=== PATIENT | female | born 1970 | race Caucasian/White ===

== ENCOUNTER → 2018-01-13 12:50 | Outpatient (CLI) | payer BC, SELFPAY ==
--- NOTE | 2018-01-13 12:58 | US_ITS ---
MM Dig mamm BI DX w/CAD, US breast LT complete COMPARISON: 11/21/2014, 12/17/2013 INDICATION: Palpable lump in the upper aspect of the left breast ORDERING PHYSICIAN: Gianluca Hdez MD PATIENT AGE: 47 years TECHNIQUE: Standard images performed along with left breast ultrasound FINDINGS: There is average to dense fibroglandular tissue. A 2.8 x 2.2 cm fairly well-circumscribed nodule is present in the upper aspect of the left breast at the 12:00 region. The margins are well-circumscribed. Surgical clips are present in the right breast no malignant appearing mass or malignant appearing microcalcifications evident. There is a 1 cm nodule in the upper outer aspect of the right breast not readily apparent on the previous exam. Ultrasound is recommended of this region. LEFT BREAST ULTRASOUND: There is a new 2.8 x 1.6 cm well-circumscribed slightly hypoechoic nodule with macrolobulation in the left o'clock region of the left breast corresponding to the palpable abnormality. This does show some through transmission of sound. A 5 mm hypoechoic nodules present at 8:00 nipple probably related to complex cyst. There are small nodes in the axilla. IMPRESSION: There is a new 2.8 cm nodule in the left the 12:00 region of the left breast which is solid by ultrasound. This likely represents a fibroadenoma however, since the nodule is new and solid, ultrasound-guided biopsy is recommended 1 cm indeterminate nodular opacity in the upper outer right breast. Ultrasound is suggested. If this is solid in biopsy may be performed on the same day as the left breast. BI-RADS Category: 4 Suspicious Abnormality-Biopsy Considered left breast RECOMMENDED FOLLOW-UP: BIO - BIOPSY RECOMMENDED Also recommend ultrasound of the right breast to be performed before the left breast biopsy. If this nodule is solid band biopsy should be considered as well (A letter has been sent to the patient regarding results of the study.)
== END ==
PROVIDERS: Family Provider Family Medicine; PCP Family Medicine; Visit Provider Family Medicine
DX: N63.20 Unspecified lump in the left breast, unspecified quadrant (principal)
CPT/HCPCS: 76641; 77066

== ENCOUNTER 2018-01-17 21:53 | Day surgery (SDC) | payer BC, SELFPAY ==
[2018-01-17 21:57] VITALS: BP 155/100; PULSE 105; RESP 16; TEMP 36.7; O2SAT 95; BMI 36.0
[2018-01-17 22:28] LABS: Basophils # 0.1 K/mm3 (0-0.2); Basophils % 0.7 % (0.1-2.0); Eosinophils # 0.7 K/mm3 (0.0-0.4); Eosinophils % 4.4 % (0.1-12.0); Hemoglobin 12.5 g/dL (12.2-16.2); Lymphocytes # 4.6 K/mm3 (0.7-4.5); Lymphocytes % 30.1 K/mm3 (10-50); Mean Corpuscular HGB Conc 32.1 g/dL (31.8-35.4); Mean Corpuscular Hemoglobin 26.2 pg (27.0-31.2); Mean Corpuscular Volume 81.6 fl (81-99); Mean Platelet Volume 7.1 fl (7.4-10.4); Monocytes # 1.1 K/mm3 (0.1-1.0); Monocytes % 7.4 % (1.7-9.3); Neutrophils # 8.8 K/mm3 (1.8-7.8); Neutrophils % 57.5 % (37.0-80.0); Platelet Count 533 K/mm3 (142-424); Red Blood Count 4.79 M/mm3 (4.20-5.40); Red Cell Distribution Width 15.1 % (11.5-17.5); White Blood Count 15.4 K/mm3 (4.8-10.8)
--- NOTE | 2018-01-17 22:28 | HMH.EDNVD ---
ED Disposition Clinical Impression: Impacted esophageal foreign body Qualifiers: Encounter type: initial encounter Qualified Code(s): T18.108A - Unspecified foreign body in esophagus causing other injury, initial encounter Disposition: Home, Self-Care Condition on Discharge: Good Additional Instructions: see pcp and dr alexis for follow up Referrals: Gianluca Hdez MD [Primary Care Provider] - - Critical Care Critical Care Time: No Attestation: On 01/17/18, the high probability of a clinically significant, sudden or life threatening deterioration of the following system(s) required my full and direct attention, intervention and personal management. The time I documented below is in addition to time spent performing reported procedures but includes the following listed in this critical care notation. Medical Decision Making Vital Signs: 01/17/18 21:57 01/17/18 23:23 Temperature 98.1 F 98.1 F Temperature Source Oral Oral Pulse Rate [Right Brachial] 105 H 86 Respiratory Rate 16 16 Blood Pressure [Right Arm] 155/100 141/95 Blood Pressure Mean [Right Arm] 118 110 Blood Pressure Source [Right Arm] Automatic Cuff Blood Pressure Position [Right Arm] Sitting 02 Sat by Pulse Oximetry 95 99 Oxygen Delivery Method Room Air - Lab Data Lab Results 01/17/18 20:20: WBC 15.4 H, RBC 4.79, Hgb 12.5, Hct 39.0, MCV 81.6, MCH 26.2 L, MCHC 32.1, RDW 15.1, Plt Count 533 H, MPV 7.1 L, Neut % (Auto) 57.5, Lymph % (Auto) 30.1, [place] % (Auto) 7.4, Eos % (Auto) 4.4, Baso % (Auto) 0.7, Neut # (Auto) 8.8 H, Lymph # (Auto) 4.6 H, [place] # (Auto) 1.1 H, Eos # (Auto) 0.7 H, Baso # (Auto) 0.1, Total Counted 100, Neutrophils % (Manual) 73, Lymphocytes % (Manual) 23, Monocytes % (Manual) 3, Eosinophils % (Manual) 1, Platelet Estimate Slight increase, Polychromasia 1+, Hypochromasia 2+, Poikilocytosis 1+, Microcytosis 1+ 01/17/18 20:20: Sodium 135 L, Potassium 3.7, Chloride 104, Carbon Dioxide 25, Anion Gap 9.7, BUN 10, Creatinine 0.85, Estimated Creat Clear 123, Estimated GFR 72, Est GFR ( Amer) 87, Glucose 122 H, Calcium 8.4 L, Total Bilirubin 0.2, AST 15, ALT 25, Alkaline Phosphatase 70, Troponin I < 0.02, Total Protein 7.9, Albumin 3.2 L, Globulin 4.7 H, Albumin/Globulin Ratio 0.7 L Result diagrams: 01/17/18 20:20 01/17/18 20:20 Orders (Tests/Meds): ED MEDICATIONS Discontinued Medications Generic Name Dose Route Start Last Admin Trade Name Freq PRN Reason Stop Dose Admin Famotidine 20 mg 01/17/18 22:07 01/17/18 22:27 Pepcid 20mg/2ml Vial IV 01/17/18 22:08 20 mg ONCE ONE Administration Glucagon 1 mg 01/17/18 22:58 01/17/18 23:00 Glucagen 1mg/Ml Vial IV 01/17/18 22:59 1 mg ONCE ONE Administration Metoclopramide HCl 10 mg 01/17/18 22:07 01/17/18 22:27 Reglan 10mg/2ml Vial IVP 01/17/18 22:08 10 mg ONCE ONE Administration - Physician Consults Physician Consulted: vanesa Reason -: Surgical Eval/Care - Russell Inquiry Pt receiving controlled substance: No Nausea/Vomiting/Diarrhea HPI - General Chief complaint: Dental/Oral Stated complaint: unable to swallow Time Seen by Provider: 01/17/18 22:28 Mode of Arrival: Ambulatory Source of Information: Patient, Relative, Medical Record Limitations: No Limitations Description of Symptoms (Recalled from ER Triage Doc. by RN): UNABLE TO SWALLOW - History of Present Illness HPI Narrative: pt with fb sensation esophageal as she was eating steak- has hx of gerd MD complaint: nausea Onset (ago): hour(s) Associated Abdominal Pain: No - Related Data Allergies Allergy/AdvReac Type Severity Reaction Status Date / Time codeine [CODEINE] Allergy Mild Verified 01/17/18 22:02 peanut [PEANUT] Allergy Mild Verified 01/17/18 22:02 [facility] History I have reviewed the patient's past medical history: Yes - Social History Alcohol Intake: never - Psychiatric History Expresses thoughts of harming self/others: None Suicide Anh
[2018-01-17 22:40] LABS: Alanine Aminotransferase 25 U/L (12-78); Albumin Level 3.2 gm/dL (3.4-5.0); Albumin/Globulin Ratio 0.7 (1.1-1.8); Alkaline Phosphatase 70 U/L (46-116); Anion Gap 9.7 mEq/L (5-15); Aspartate Amino Transferase 15 U/L (15-37); Bilirubin,Total 0.2 mg/dL (0.2-1.0); Blood Urea Nitrogen 10 mg/dL (7-18); Calcium 8.4 mg/dL (8.5-10.1); Carbon Dioxide 25 mmol/L (21.0-32.0); Chloride 104 mmol/L (98-107); Creatinine Clearance Estimated 123 mL/min (0-300); Creatinine,Serum 0.85 mg/dL (0.55-1.02); Estimated Glomerular Filt Rate 72 ml/min (>60); GFR (African American) 87 ML/MIN (>60); Globulin 4.7 gm/dl (1.3-3.2); Glucose 122 mg/dL (74-106); Potassium 3.7 mmoL/L (3.5-5.1); Sodium 135 mmol/L (136-145); Total Protein,Serum 7.9 gm/dL (6.4-8.2); Troponin I < 0.02 ng/ml (0.00-0.06)
[2018-01-17 22:42] LABS: MANUAL DIFFERENTIAL MANUAL DIFFERENTIAL (MANUAL DIFF)
[2018-01-17 22:46] LABS: Eosinophils % 1 % (0-3); Lymphocytes % 23 % (10-50); Monocytes % 3 % (2-9); Neutrophils % 73 % (42-76); Total Cells Counted 100
[2018-01-17 22:47] LABS: Hypochromasia 2+; Microcytosis 1+; Platelet Estimate Slight Increase; Poikilocytosis 1+; Polychromasia 1+
--- NOTE | 2018-01-17 23:00 | PC.NURSE ---
DR VEGA SPOKE WITH DR BROWN, TO GIVE GLUCAGON AT THIS TIME.
--- NOTE | 2018-01-17 23:17 | PC.NURSE ---
DR BROWN CALLED BACK FOR US TO CALL IN OR TEAM FOR EGD.
--- NOTE | 2018-01-17 23:20 | PC.NURSE ---
OR team was paged
[2018-01-17 23:23] VITALS: BP 141/95; PULSE 86; RESP 16; TEMP 36.7; O2SAT 99
--- NOTE | 2018-01-17 23:45 | HMH.GSHP ---
HPI HPI: Patient is a pleasant 47-year-old white female. She has a prior history 2 years ago of symptoms consistent with esophageal obstruction secondary to food impaction. However her symptoms resolved with administration of medication after running to the emergency department. This evening approximately 8 PM she was in her usual state of health. She had eaten at a steak house in [place] and after leaving she has been unable to swallow her own secretions. She has had nearly continuous spitting up of saliva. She denies any significant chest pain. She presented to the [facility] department and medication was administered including antacid and glucagon and Reglan. She had no resolution of symptoms and surgery was contacted for upper endoscopy. [facility] History - *Social History Alcohol Intake: never - Psychiatric History Expresses thoughts of harming self/others: None Suicide Plan Description: No Plan Review of Systems - Review of Systems Review of systems:: pertinent systems reviewed and negative unless documented below - *Neurologic Denies seizure-like activity Meds Allergies Allergy/AdvReac Type Severity Reaction Status Date / Time codeine [CODEINE] Allergy Mild Verified 01/17/18 22:02 peanut [PEANUT] Allergy Mild Verified 01/17/18 22:02 Exam Vital signs and Labs for Last 24 Hours: Temp Pulse Resp BP Pulse Ox 98.1 F 86 16 141/95 99 01/17/18 23:23 01/17/18 23:23 01/17/18 23:23 01/17/18 23:23 01/17/18 23:23 Laboratory Results - last 24 hr 01/17/18 20:20: WBC 15.4 H, RBC 4.79, Hgb 12.5, Hct 39.0, MCV 81.6, MCH 26.2 L, MCHC 32.1, RDW 15.1, Plt Count 533 H, MPV 7.1 L, Neut % (Auto) 57.5, Lymph % (Auto) 30.1, [place] % (Auto) 7.4, Eos % (Auto) 4.4, Baso % (Auto) 0.7, Neut # (Auto) 8.8 H, Lymph # (Auto) 4.6 H, [place] # (Auto) 1.1 H, Eos # (Auto) 0.7 H, Baso # (Auto) 0.1, Total Counted 100, Neutrophils % (Manual) 73, Lymphocytes % (Manual) 23, Monocytes % (Manual) 3, Eosinophils % (Manual) 1, Platelet Estimate Slight increase, Polychromasia 1+, Hypochromasia 2+, Poikilocytosis 1+, Microcytosis 1+ 01/17/18 20:20: Sodium 135 L, Potassium 3.7, Chloride 104, Carbon Dioxide 25, Anion Gap 9.7, BUN 10, Creatinine 0.85, Estimated Creat Clear 123, Estimated GFR 72, Est GFR ( Amer) 87, Glucose 122 H, Calcium 8.4 L, Total Bilirubin 0.2, AST 15, ALT 25, Alkaline Phosphatase 70, Troponin I < 0.02, Total Protein 7.9, Albumin 3.2 L, Globulin 4.7 H, Albumin/Globulin Ratio 0.7 L I & O for Last 24 hours: Intake & Output 01/15/18 01/16/18 01/17/18 01/18/18 11:59 11:59 11:59 11:59 Weight 210 lb - Constitutional mild distress Comments: Sitting upright spitting up secretions. Good airway movement - *Routine Respiratory Exam Present: CTA bilaterally - *Routine Cardiovascular Exam Present: RRR Results - Results Lab Results Last 24 Hours:: Laboratory Results - last 24 hr 01/17/18 20:20: WBC 15.4 H, RBC 4.79, Hgb 12.5, Hct 39.0, MCV 81.6, MCH 26.2 L, MCHC 32.1, RDW 15.1, Plt Count 533 H, MPV 7.1 L, Neut % (Auto) 57.5, Lymph % (Auto) 30.1, [place] % (Auto) 7.4, Eos % (Auto) 4.4, Baso % (Auto) 0.7, Neut # (Auto) 8.8 H, Lymph # (Auto) 4.6 H, [place] # (Auto) 1.1 H, Eos # (Auto) 0.7 H, Baso # (Auto) 0.1, Total Counted 100, Neutrophils % (Manual) 73, Lymphocytes % (Manual) 23, Monocytes % (Manual) 3, Eosinophils % (Manual) 1, Platelet Estimate Slight increase, Polychromasia 1+, Hypochromasia 2+, Poikilocytosis 1+, Microcytosis 1+ 01/17/18 20:20: Sodium 135 L, Potassium 3.7, Chloride 104, Carbon Dioxide 25, Anion Gap 9.7, BUN 10, Creatinine 0.85, Estimated Creat Clear 123, Estimated GFR 72, Est GFR ( Amer) 87, Glucose 122 H, Calcium 8.4 L, Total Bilirubin 0.2, AST 15, ALT 25, Alkaline Phosphatase 70, Troponin I < 0.02, Total Protein 7.9, Albumin 3.2 L, Globulin 4.7 H, Albumin/Globulin Ratio 0.7 L Assessment and Plan - Assessment and plan all Dx Assessment and Plan for all problems:: Plan for e
--- NOTE | 2018-01-17 23:48 | P.HP_ITS ---
HPI HPI: Patient is a pleasant 47-year-old white female. She has a prior history 2 years ago of symptoms consistent with esophageal obstruction secondary to food impaction. However her symptoms resolved with administration of medication after running to the emergency department. This evening approximately 8 PM she was in her usual state of health. She had eaten at a steak house in [place] and after leaving she has been unable to swallow her own secretions. She has had nearly continuous spitting up of saliva. She denies any significant chest pain. She presented to the [facility] department and medication was administered including antacid and glucagon and Reglan. She had no resolution of symptoms and surgery was contacted for upper endoscopy. [facility] History - *Social History Alcohol Intake: never - Psychiatric History Expresses thoughts of harming self/others: None Suicide Plan Description: No Plan Review of Systems - Review of Systems Review of systems:: pertinent systems reviewed and negative unless documented below - *Neurologic Denies seizure-like activity Meds Allergies Allergy/AdvReac Type Severity Reaction Status Date / Time codeine [CODEINE] Allergy Mild Verified 01/17/18 22:02 peanut [PEANUT] Allergy Mild Verified 01/17/18 22:02 Exam Vital signs and Labs for Last 24 Hours: Temp Pulse Resp BP Pulse Ox 98.1 F 86 16 141/95 99 01/17/18 23:23 01/17/18 23:23 01/17/18 23:23 01/17/18 23:23 01/17/18 23:23 Laboratory Results - last 24 hr 01/17/18 20:20: WBC 15.4 H, RBC 4.79, Hgb 12.5, Hct 39.0, MCV 81.6, MCH 26.2 L, MCHC 32.1, RDW 15.1, Plt Count 533 H, MPV 7.1 L, Neut % (Auto) 57.5, Lymph % ( Auto) 30.1, [place] % (Auto) 7.4, Eos % (Auto) 4.4, Baso % (Auto) 0.7, Neut # (Auto ) 8.8 H, Lymph # (Auto) 4.6 H, [place] # (Auto) 1.1 H, Eos # (Auto) 0.7 H, Baso # ( Auto) 0.1, Total Counted 100, Neutrophils % (Manual) 73, Lymphocytes % (Manual) 23, Monocytes % (Manual) 3, Eosinophils % (Manual) 1, Platelet Estimate Slight increase, Polychromasia 1+, Hypochromasia 2+, Poikilocytosis 1+, Microcytosis 1+ 01/17/18 20:20: Sodium 135 L, Potassium 3.7, Chloride 104, Carbon Dioxide 25, Anion Gap 9.7, BUN 10, Creatinine 0.85, Estimated Creat Clear 123, Estimated GFR 72, Est GFR ( Amer) 87, Glucose 122 H, Calcium 8.4 L, Total Bilirubin 0.2, AST 15, ALT 25, Alkaline Phosphatase 70, Troponin I < 0.02, Total Protein 7.9, Albumin 3.2 L, Globulin 4.7 H, Albumin/Globulin Ratio 0.7 L I & O for Last 24 hours: Intake & Output 01/15/18 01/16/18 01/17/18 01/18/18 11:59 11:59 11:59 11:59 Weight 210 lb - Constitutional mild distress Comments: Sitting upright spitting up secretions. Good airway movement - *Routine Respiratory Exam Present: CTA bilaterally - *Routine Cardiovascular Exam Present: RRR Results - Results Lab Results Last 24 Hours:: Laboratory Results - last 24 hr 01/17/18 20:20: WBC 15.4 H, RBC 4.79, Hgb 12.5, Hct 39.0, MCV 81.6, MCH 26.2 L, MCHC 32.1, RDW 15.1, Plt Count 533 H, MPV 7.1 L, Neut % (Auto) 57.5, Lymph % ( Auto) 30.1, [place] % (Auto) 7.4, Eos % (Auto) 4.4, Baso % (Auto) 0.7, Neut # (Auto ) 8.8 H, Lymph # (Auto) 4.6 H, [place] # (Auto) 1.1 H, Eos # (Auto) 0.7 H, Baso # ( Auto) 0.1, Total Counted 100, Neutrophils % (Manual) 73, Lymphocytes % (Manual) 23, Monocytes % (Manual) 3, Eosinophils % (Manual) 1, Platelet Estimate Slight increase, Polychromasia 1+, Hypochromasia 2+, Poikilocytosis 1+, Microcytosis 1+ 01/17/18 20:
[2018-01-17 23:54] VITALS: BP 141/95; PULSE 86; RESP 16; TEMP 36.7
[2018-01-18 00:35] VITALS: BP 123/73; PULSE 103; RESP 16; O2SAT 100
--- NOTE | 2018-01-18 00:38 | HMH.ANESCL ---
[facility] Anesthesia Checklist - Patient Identification Patient Identification: Arm Band, Verbal (Name & ) - Structural Data Admitted From: Emergency Dept Planned Operative Procedure/s: egd Consent for Planned Operative Procedure(s) Verified: Yes Verified Documents: Surgical Consent - NPO Status Verified Time NPO: 20:00 - Chart Verification Results Verified: CBC, BMP - Additional verifications Patient : No Anesthesia Reactions: No Hx Blood Transfusions: No Blood Transfusion Reaction: No Cephalosporin Allergy: No Previous Colonoscopy: No - Cardiovascular Assessment Heart Sounds: S1 & S2 Pulse Strength: Baseline Pulse Rhythm: Regular Peripheral Edema: No - Airway Assessment C-Spine Mobility Assessed: Yes TMJ Mobility Assessed: Yes Dentition: Good Dentition - Neurological Assessment Level of Consciousness: Awake, Alert, Appropriate Hx Seizures: No Numbness or tingling in extremities: No - Anesthesia Plan Anesthesia Risk discussed: Yes Anesthesia Plan: Verified ASA Class: II Anesthesia Type: MAC [facility] Anesthesia HX I have reviewed the patient's past medical history: Yes Medical History: Reports:: Anxiety, Gastroesophageal Reflux Disease(GERD) Laterality Cases: Bilateral: Breast Biopsy Other Surgeries: Yes: Other (lap choly) Amputation: No Fractures: No *Family Hx:: Unable to obtain
--- NOTE | 2018-01-18 00:41 | HMH.SCOPE ---
- Procedure: Date: 01/18/18 Procedure Performed:: Esophagogastroduodenoscopy with retrieval of foreign body/food impaction Indications:: Patient is a 47-year-old white female. She had a prior history consistent with esophageal obstruction 2 years ago which resolved after presentation to the emergency department and administration of medication. She was eating at a steak house in [facility] approximately 8 PM. After several bites of steak she states that she was unable to swallow anymore. She was unable to swallow secretions. During transport back to [place] she states that she had multiple episodes where she was unable to swallow secretions and had to regurgitate saliva. She presented to the emergency department was found to have findings consistent with esophageal obstruction secondary to food impaction. She was administered H2 lyle, Reglan, and glucagon without success. Surgery was contacted and plan was made for emergent upper endoscopy. Performing Provider:: Josiah Navarrete MD Referring Provider:: Duke Hdez MD Sedation:: Propofol Procedure:: Consent was obtained and patient was taken to endoscopy procedure room. She was positioned in a lateral decubitus position. Adequate intravenous sedation was achieved with anesthesia titration of propofol. Olympus endoscope was inserted via the oropharynx and advanced into the proximal esophagus where meat impaction was encountered. Using the 3 prong grasping forceps a small portion of this was retrieved. It was felt that the overtube could not be utilized as this was approximately 20 cm from the incisors. The endoscope was reinserted multiple times and small portions of the impacted meat was withdrawn. Attempt was made to use biopsy forceps without success and small portions were able to be removed with repeated insertion and withdrawal using the Jaime net. Ultimately a very large bolus of meat was removed in its entirety. There was a small to moderate portion of meat in the posterior oropharynx was was retrieved as well. The endoscope was then able to be advanced through the esophagus in its entirety and into the stomach. There is no residual foreign body obstruction. The endoscope was withdrawn. Findings:: Food impaction 20 cm from the incisors Recommendations:: He is instructed to stay on a full liquid diet for at least 24 hours and then partake in a limited soft pur?ed diet for a couple of days. I will have her return to the office. I may plan for elective upper endoscopy and potentially upper GI series due to the fact that this was obstructed at the proximal esophagus. Complications:: None immediately apparent Estimated blood obtained (mL): 1
[2018-01-18 00:50] VITALS: BP 127/76; PULSE 105; RESP 16; O2SAT 100
[2018-01-18 01:05] VITALS: BP 138/54; PULSE 100; RESP 18; O2SAT 97
== END 2018-01-18 ==
LOC: ER 23:45 → OR 01-18 00:22
PROVIDERS: Emergency Provider Emergency Medicine; Family Provider Family Medicine; PCP Family Medicine; Visit Provider Surgery
PROC: 0DJ08ZZ Inspection of Upper Intestinal Tract, Via Natural or Artificial Opening Endoscopic (ICD-10-PCS; CPT 43235; principal; 2018-01-18)
DX: T18.128A Food in esophagus causing other injury, initial encounter (principal)
CPT/HCPCS: 43247; 80053; 84484; 85007; 85025; 96374; 96375; 99282; J1610

== ENCOUNTER → 2018-01-30 08:56 | Outpatient (CLI) | payer BC, SELFPAY ==
--- NOTE | 2018-01-30 09:04 | US_ITS ---
US breast RT complete COMPARISON: Ultrasound left breast 01/13/2018 HISTORY: Possible new indeterminate nodular opacity upper outer right breast on recent mammogram TECHNIQUE: Targeted ultrasound right breast upper outer quadrant FINDINGS: Diffuse heterogenic echogenicity is seen throughout the breast consistent with prior cystic changes. There is a well-defined hypoechoic nodular lesion at the 9:00 position with smooth borders and homogeneous internal echogenicity measuring 0.8 x 0.8 x 0.6 cm. This likely is a fibroadenoma. In addition there is an irregular area of decreased echogenicity at the 10:00 position mid breast and this is in the area of the previous biopsy and likely resenting post surgical scarring. There is a tiny hypoechoic cystic-appearing lesion just deep to the nipple measuring 0.6 cm. There is a normal-appearing node in the axilla. IMPRESSION: 1 probable fibroadenoma 9:00 position and biopsy could be offered at the same sitting as the biopsy of the left breast. 2. Somewhat irregular hypoechoic lesion at the 10:00 position likely resenting post surgical scarring and suggest a follow-up ultrasound right breast in 6 months to evaluate for interval stability.
== END ==
PROVIDERS: Family Provider Family Medicine; PCP Family Medicine; Visit Provider Family Medicine
DX: R92.8 Other abnormal and inconclusive findings on diagnostic imaging of breast (principal)
CPT/HCPCS: 76641

== ENCOUNTER → 2018-02-03 10:55 | Outpatient (CLI) | payer BC, SELFPAY ==
--- NOTE | 2018-02-03 10:57 | FL_ITS ---
FL upper GI esophagus w/air HISTORY: ITS.REASON: DYSPHAGIA, ESOPHAGEAL FOOD IMPACTION ORDERING PHYSICIAN: Josiah Navarrete MD PATIENT AGE: 47 years COMPARISON: None FINDINGS: Initially esophagus was examined in the upright and supine position. No obstructing lesions. No mucosal abnormalities. No evidence of obstructing chest disease ring or hiatal hernia. The stomach, and duodenum have an unremarkable appearance. There is no evidence of hiatal hernia. No ulcer or mass evident. No mucosal abnormalities apparent. There is normal peristalsis. The duodenal C-loop is nondisplaced. There was mild amount of gastroesophageal reflux noted during the exam FLUOROSCOPY TIME : 1 minute and 33 seconds. IMPRESSION: 1. Gastroesophageal reflux. 2. Otherwise negative air contrast esophagram and upper GI
== END ==
PROVIDERS: Family Provider Family Medicine; PCP Family Medicine; Visit Provider Surgery
DX: R13.10 Dysphagia, unspecified (principal)
CPT/HCPCS: 74241

== ENCOUNTER → 2018-02-11 09:39 | Outpatient (CLI) | payer BC, SELFPAY ==
--- NOTE | 2018-02-11 10:00 | US_ITS ---
US mammotome bx RT, US breast RT complete COMPARISON: 01/13/2018 INDICATION: Right breast solid nodule ORDERING PHYSICIAN: Gianluca Hdez MD PATIENT AGE: 47 years Prebiopsy ultrasound: Ultrasound performed of the right breast once again confirms the solid nodule in the right breast at 9:00 region which was new. TECHNIQUE: Following obtaining informed consent using aseptic conditions and local anesthesia with 1% buffered lidocaine and deeper anesthesia with lidocaine Epinephrine under sonographic guidance, a skin neck was performed and 8 gauge mammotomy needle inserted and confirmed to be in satisfactory position. Multiple cores were obtained. The nodule did decrease in size. A nonferromagnetic clip was placed however did not employ. The patient tolerated the procedure well without evidence of immediate complications. Pathology: Benign fibroadenoma. Adenosis, sclerosing adenosis, and focal epithelial hyperplasia without atypia with microcalcifications. Negative for carcinoma. Post biopsy mammogram showed post biopsy changes in the region of the previously noted nodule. IMPRESSION: Excess full sonographic guided mammotome biopsy of the right breast showing a fibroadenoma. BI-RADS Category: 2 Benign Finding(s) RECOMMENDED FOLLOW-UP: 6M - 6 MONTH FOLLOW-UP (A letter has been sent to the patient regarding results of the study.)
--- NOTE | 2018-02-11 10:02 | US_ITS ---
US mammotome bx LT, US breast LT complete COMPARISON: 01/13/2018, INDICATION: Left breast nodule ORDERING PHYSICIAN: Gianluca Hdez MD PATIENT AGE: 47 years Left breast ultrasound: A prebiopsy ultrasound confirmed the presence of a persistent 3 x 1.6 cm nodule within the 12:00 region of the left breast. Solid with lobular margins. TECHNIQUE: Following obtaining informed consent under aseptic conditions and local anesthesia with 1% lidocaine and deeper anesthesia with lidocaine mixed with epinephrine, a skin brennen was performed and an 8 gauge mammotomy needle inserted. Multiple mammotomy biopsy were obtained. The nodule did get smaller. A nonferromagnetic clip was then placed. The patient tolerated the procedure well and left radiology suite in stable condition. Pathology: Benign fibroadenoma. Negative for atypia or malignancy. IMPRESSION: Successful ultrasound-guided mammotomy biopsy left breast showing benign fibroadenoma BI-RADS Category: 2 Benign Finding(s) RECOMMENDED FOLLOW-UP: 6M - 6 MONTH FOLLOW-UP (A letter has been sent to the patient regarding results of the study.)
--- NOTE | 2018-02-11 12:00 | MM_ITS ---
MM Dig mamm BI DX w/CAD COMPARISON: 01/13/2018 INDICATION: Follow-up biopsy ORDERING PHYSICIAN: Gianluca Hdez MD PATIENT AGE: 47 years TECHNIQUE: Standard images performed FINDINGS: There is dense fibroglandular tissue bilaterally. Multiple surgical clips are present on the right. Post biopsy changes are present in the outer aspect of the right breast. Previously noted nodule in the 9:00 region no longer apparent. Post biopsy changes present in the 12:00 region of the left breast. Previously described nodule in the 12:00 region is once again noted but is smaller slightly smaller with a clip in the central aspect of the nodule. IMPRESSION: Benign findings BI-RADS Category: 2 Benign Finding(s) RECOMMENDED FOLLOW-UP: 6M - 6 MONTH FOLLOW-UP per routine biopsy protocol (A letter has been sent to the patient regarding results of the study.)
== END ==
PROVIDERS: Family Provider Family Medicine; PCP Family Medicine; Visit Provider Family Medicine
DX: R92.8 Other abnormal and inconclusive findings on diagnostic imaging of breast (principal)
CPT/HCPCS: 19083; 19084; 76641; 76942; 77066; C2618

== ENCOUNTER 2018-02-17 07:56 | Day surgery (SDC) | payer BC, SELFPAY ==
[2018-02-16 14:43] VITALS: BMI 36.0
[2018-02-17] VITALS (10 sets, daily range): BP systolic 116–174; BP diastolic 67–88; PULSE 66–93; RESP 12–25; TEMP 36.2–36.3; O2SAT 96–100
[2018-02-17 08:39] LABS: Urine Pregnancy, HCG Qual. Negative (Negative)
--- NOTE | 2018-02-17 10:32 | HMH.SCOPE ---
- Procedure: Date: 02/17/18 Procedure Performed:: Esophagogastroduodenoscopy with biopsies and pneumatic balloon dilatation to 18 mm Indications:: Patient is a 47-year-old white female. She had undergone emergent upper endoscopy on 01/17/18 for esophageal food impaction. She is found to have impacted meat in the proximal esophagus which was ultimately retrieved. She did have a similar episode a couple of years ago which resolved when she had presented to the emergency department with medical therapy without surgical instrumentation. After her procedure she presented the office did admit to an episode on 01/25/18 which was consistent with esophageal obstruction secondary to food impaction after eating chicken tenders and she had some forced regurgitation and ultimately regurgitated a large piece of chicken. I had her undergo upper GI series which revealed only findings of radiographic reflux. Plan was made for upper endoscopy and possible dilatation. Performing Provider:: Josiah Navarrete MD Referring Provider:: Lemuel Sedation:: Versed 7 mg, fentanyl 150 mcg. Procedure:: Consent was obtained and patient was taken to endoscopy procedure room. She was positioned in a lateral decubitus position. Adequate intravenous sedation was achieved with titration of Versed and fentanyl. Olympus endoscope was inserted via the oropharynx. Approximately 27 cm from the incisors there is an area which appeared to be significant erosive esophagitis. Several biopsies were obtained. The endoscope was advanced through the esophagus. 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 There is no evidence of any distal esophageal stricture. Stomach was cannulated and insufflated. Retroflexion revealed no evidence of any appreciable hiatal hernia. There was a polyp consistent with a fundic gland polyp in the fundus of the stomach. This was removed with cold biopsy forceps. Gastric antral mucosal biopsies obtained for CLOtest for H. pylori. There was evidence of healed erosions within the antrum. Pylorus was traversed. Duodenal bulb and duodenal sweep are unremarkable. Endoscope was withdrawn into the esophagus. Several distal esophageal biopsies were obtained. Mid esophageal biopsies were obtained. Proximal esophageal biopsies were obtained at the site of erosive esophagitis. This area was dilated to 18 mmHg using the pneumatic dilator. Endoscope was withdrawn. Findings:: Possible Mo's throughout the esophagus Inflammatory erosive esophagitis approximately 27 cm from the incisors. Recommendations:: I will follow-up on histopathology. Require referral Complications:: None Estimated blood obtained (mL): 5
== END 2018-02-17 11:15 | disposition home or self-care (01) ==
LOC: OUTP 07:57
PROVIDERS: Family Provider Family Medicine; PCP Family Medicine; Visit Provider Surgery
PROC: 0DJ08ZZ Inspection of Upper Intestinal Tract, Via Natural or Artificial Opening Endoscopic (ICD-10-PCS; CPT 43235; principal; 2018-02-17 08:30)
DX: K20.8 Other esophagitis (principal); R13.19 Other dysphagia
CPT/HCPCS: 43239; 43249; 81025; 87339; 99152; C1726

== ENCOUNTER 2018-02-19 18:46 | Emergency (ER) | payer BC, SELFPAY ==
[2018-02-19 19:01] VITALS: BP 132/77; PULSE 93; RESP 20; TEMP 37.2; O2SAT 98; BMI 36.0
[2018-02-19 19:12] VITALS: BP 132/77; PULSE 82; RESP 16; O2SAT 98; BMI 36.0
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
--- NOTE | 2018-02-19 19:29 | XR_ITS ---
XR ankle RT min 3V HISTORY: ITS.REASON: PAIN ORDERING PHYSICIAN: Venu Brooks MD PATIENT AGE: 47 years COMPARISON: None FINDINGS: There is an intramedullary magdi in the tibia extending to the distal aspect. A vertical screw is present within the posterior aspect of the calcaneus. There is no fracture of the distal shaft of the tibia and fibula as well as calcaneus. There is pes planus. No acute fracture or dislocation is evident. IMPRESSION: No acute fracture. Old fracture with prior ORIF
--- NOTE | 2018-02-19 19:29 | XR_ITS ---
XR knee RT 3V HISTORY: ITS.REASON: PAIN ORDERING PHYSICIAN: Venu Brooks MD PATIENT AGE: 47 years COMPARISON: None FINDINGS: There is a intramedullary magdi within the femur and in the tibia with an old fracture of the distal femur. No acute fracture or dislocation evident. Small area of sclerosis is present involving the proximal tibia medially nonspecific. IMPRESSION: No acute fracture. Old distal femur fracture, prior ORIF
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
--- NOTE | 2018-02-19 20:20 | ED_ITS ---
ED Disposition Clinical Impression: Contusion of hip, right Qualifiers: Encounter type: initial encounter Qualified Code(s): S70.01XA - Contusion of right hip, initial encounter Sprain of knee Qualifiers: Encounter type: initial encounter Involved ligament of knee: other ligament Laterality: right Qualified Code(s): S83.8X1A - Sprain of other specified parts of right knee, initial encounter Right ankle sprain Qualifiers: Encounter type: initial encounter Involved ligament of ankle: other ligament Qualified Code(s): S93.491A - Sprain of other ligament of right ankle, initial encounter Disposition: Home, Self-Care Condition on Discharge: Good Instructions: How to Prevent Falls Additional Instructions: ice and wt bearing as shirley and call ortho and pcp in am Prescriptions: Hydrocod/Acet 5/325 mg [[place] 5/325mg tablet] 1 tab PO Q6HP PRN #7 tab PRN Reason: Moderate To Severe Pain Referrals: Gianluca Hdez MD [Primary Care Provider] - - Critical Care Critical Care Time: No Attestation: On 02/19/18, the high probability of a clinically significant, sudden or life threatening deterioration of the following system(s) required my full and direct attention, intervention and personal management. The time I documented below is in addition to time spent performing reported procedures but includes the following listed in this critical care notation. Medical Decision Making - Medical Records Medical records reviewed: Yes: I reviewed the patient's medical records. - Russell Inquiry Pt receiving controlled substance: No Vital Signs: 02/19/18 19:01 02/19/18 19:12 02/19/18 20:31 Temperature 99 F Temperature Source Oral Pulse Rate [Right Brachial] 93 H 82 86 Respiratory Rate 20 16 16 Blood Pressure [Right Arm] 132/77 132/77 170/66 Blood Pressure Mean [Right Arm] 95 95 100 Blood Pressure Source [Right Arm] Automatic Cuff Blood Pressure Position [Right Arm] Sitting 02 Sat by Pulse Oximetry 98 98 97 Oxygen Delivery Method Room Air Room Air Room Air - Lab Data Lab results reviewed: Yes: I reviewed the patient's lab results. Orders (Tests/Meds): ED MEDICATIONS Discontinued Medications Generic Name Dose Route Start Last Admin Trade Name Freq PRN Reason Stop Dose Admin Acetaminophen 1,000 mg 02/19/18 19:32 03/29/18 19:38 Tylenol 500mg Tablet PO 02/19/18 19:33 1,000 mg ONCE ONE Administration Ibuprofen 800 mg 02/19/18 19:32 02/19/18 19:38 Motrin 400mg Tablet PO 02/19/18 19:33 800 mg ONCE ONE Administration ORDERS Category Date Time Status Knee XR right 3 views [XR knee RT 3V] Stat Exams 02/19/18 19:29 Taken XR ankle RT min 3V Stat Exams 02/19/18 19:29 Taken XR hip RT 2-3V w/pelvis Stat Exams 02/19/18 19:29 Taken - Radiology Data #1 Image(s): Hip, Knee, Ankle Image Reviewed: Yes I reviewed the patient's radiology image Preliminary Findings: No Fracture Seen Fall HPI - General Chief Complaint: Fall Stated Complaint: ao [id number] @1800 injured right leg Time Seen by Provider: 02/19/18 20:17 Mode of Arrival: Family Vehicle Source of Information: Patient, Relative, Medical Record Limitations: Physical Limitations Description of Symptoms (Recalled from ER Triage Doc. by RN): PT FELL DOWN 3 STEPS AT HOME, NOW IS HAVING P
[2018-02-19 20:31] VITALS: BP 170/66; PULSE 86; RESP 16; O2SAT 97
[2018-02-19 21:03] VITALS: BP 139/89; PULSE 80; RESP 18; TEMP 36.7; O2SAT 97
== END 2018-02-19 21:02 | disposition home or self-care (01) ==
PROVIDERS: Emergency Provider Emergency Medicine; Family Provider Family Medicine; PCP Family Medicine
DX: S70.01XA Contusion of right hip, initial encounter (principal); S83.8X1A Sprain of other specified parts of right knee, initial encounter; S93.491A Sprain of other ligament of right ankle, initial encounter; K21.9 Gastro-esophageal reflux disease without esophagitis; F41.9 Anxiety disorder, unspecified; W10.9XXA Fall (on) (from) unspecified stairs and steps, initial encounter; Y92.019 Unspecified place in single-family (private) house as the place of occurrence of the external cause
CPT/HCPCS: 73502; 73562; 73610; 99284

== ENCOUNTER 2018-03-10 08:00 | Outpatient (RCR) | payer BC, SELFPAY ==
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
== END 2018-03-10 08:01 | disposition home or self-care (01) ==
LOC: PT 08:00
PROVIDERS: Family Provider Family Medicine; PCP Family Medicine; Visit Provider Family Medicine
DX: S86.911D Strain of unspecified muscle(s) and tendon(s) at lower leg level, right leg, subsequent encounter (principal)
CPT/HCPCS: 97010; 97014; 97033; 97035; 97110; G0283

== ENCOUNTER → 2018-12-03 15:01 | Outpatient (CLI) | payer BC, SELFPAY ==
--- NOTE | 2018-12-03 15:07 | MR_ITS ---
MR knee LT wo con HISTORY: Acute left knee pain with medial side pain and swelling with weakness in the left knee ITS.REASON: ACUTE PAIN OF LEFT KNEE ORDERING PHYSICIAN: Jyoti Grijalva MD PATIENT AGE: 47 years Comparison: None TECHNIQUE: Standard multiplanar multiecho sequences are performed without contrast. FINDINGS: The cruciate ligaments are intact. The collateral ligaments, patellar tendon, and quadriceps tendon have an unremarkable appearance. No evidence of meniscal tear. There is increased T2 signal involving the medial femoral condyle and the central aspect of the proximal tibia consistent with bone bruise. There is mild diffuse subcutaneous edema noted slightly greater along the lateral aspect of the knee. Patellar cartilage is well preserved. There is a small area of increase T2 signal involving the central patellar region slightly medial. There is a small knee joint effusion IMPRESSION: 1. There is bone marrow edema involving the medial femoral condyle the central aspect of the proximal tibia may be related to contusion in the appropriate clinical setting. Bone marrow edema from other sources also considerations such as a vascular process or inflammation. 2. No evidence of internal arrangement 3. Small knee joint effusion with diffuse subcutaneous edema about the knee. 4. Small central area of increased T2 signal of the patella nonspecific and could be due to an area of osteochondrosis
== END ==
PROVIDERS: PCP Emergency Medicine; Visit Provider Emergency Medicine
DX: M25.562 Pain in left knee (principal)
CPT/HCPCS: 73721

== ENCOUNTER → 2020-01-28 10:47 | Outpatient (CLI) | payer BC, SELFPAY ==
--- NOTE | 2020-01-28 10:52 | XR_ITS ---
PROCEDURE: XR HIP RT 2-3V W/PELVIS CLINICAL INDICATION: RT HIP AND LOWER LEG PAIN Fell down stairs, bruising right hip COMPARISON: HIPCMRT XR hip RT 2-3V w/pelvis from 02/19/2018 FINDINGS: Status post ORIF right femoral neck fracture with orthopedic hardware in place as described previously. There is no acute right hip fracture seen and there is no evidence of loosening of the hardware. The femoral head appears viable. There are old healed fractures of left superior and inferior pubic rami with mild deformity of the symphysis pubis. The left hip is intact. The iliac bones appear normal, the SI joints are normal. IMPRESSION: No acute findings. Dictated by: Dr. Venu Pelaez MD 01/28/2020 11:[address] Venu Pelaez MD in [place] 01/28/2020 11:25
--- NOTE | 2020-01-28 10:52 | XR_ITS ---
PROCEDURE: XR TIBIA FIBULA RT 2V CLINICAL INDICATION: RT HIP AND LOWER LEG PAIN COMPARISON: [id number] XR knee RT 3V from 02/19/2018 FINDINGS: There is an intramedullary magdi extending the length of the tibia. There is no evidence of loosening. There are old well-healed fractures of the distal 3rd of the tibia and fibula. There is a vertically oriented threaded screw in the calcaneus which shows moderate deformity from previous fracture. It is well healed. The soft tissues appear grossly normal though there could be some minimal diffuse soft tissue swelling anteriorly just inferior to the patella. IMPRESSION: Possible mild soft tissue swelling no acute bony pathology noted Dictated by: Dr. Venu Pelaez MD 01/28/2020 11:[address] Venu Pelaez MD in [place] 01/28/2020 11:30
--- NOTE | 2020-01-28 10:52 | XR_ITS ---
PROCEDURE: XR FEMUR RT 2V CLINICAL INDICATION: RT HIP AND LOWER LEG PAIN COMPARISON: No exams were available for comparison FINDINGS: No the intramedullary magdi extends the length of the femur. There is no evidence of loosening. There is an old well-healed fracture distal 3rd of the femur. There is no acute fracture seen. The soft tissues appear grossly normal. IMPRESSION: No acute findings. Dictated by: Dr. Venu Pelaez MD 01/28/2020 11:[address] Venu Pelaez MD in [place] 01/28/2020 11:27
== END ==
PROVIDERS: PCP Physician Assistant; Visit Provider Physician Assistant
DX: M25.551 Pain in right hip (principal); M79.661 Pain in right lower leg
CPT/HCPCS: 73502; 73552; 73590

== ENCOUNTER → 2020-07-10 11:11 | Outpatient (CLI) | payer BC, SELFPAY ==
[2020-07-10 11:56] LABS: Chloride 106 mmol/L (98-107); Sodium 139 mmol/L (136-145)
[2020-07-10 11:57] LABS: Potassium 4.5 mmoL/L (3.5-5.1)
[2020-07-10 11:59] LABS: Alanine Aminotransferase 18 U/L (12-78); Albumin Level 3.6 g/dl (3.5-5.0); Alkaline Phosphatase 82 U/L (38-126); Aspartate Amino Transferase 25 U/L (14-36); Bilirubin,Total 0.4 mg/dl (0.2-1.3); Blood Urea Nitrogen 11 mg/dl (7-17); Cholesterol 191 mg/dl (140-200); Estimated Glomerular Filt Rate 106 ml/min (>60); GFR (African American) 129 ML/MIN (>60); Globulin 3.6 g/dL (1.3-3.2); Total Protein,Serum 7.2 g/dl (6.3-8.2); Triglycerides 177 mg/dl (30-150); VLDL Cholesterol 35 mg/dL (0-40)
[2020-07-10 12:00] LABS: Calcium 9.2 mg/dl (8.4-10.2); Chol/HDL Ratio 2.7 (1-3.5); Glucose 108 mg/dl (74-100); HDL Cholesterol 70 mg/dl (40-60)
[2020-07-10 12:10] LABS: Direct LDL Cholesterol 82.62 mg/dL (100-129)
[2020-07-10 14:20] LABS: Anion Gap 11.5 mEq/L (5-15); Carbon Dioxide 26 mmol/L (22.0-30.0)
== END ==
PROVIDERS: Visit Provider Family Medicine
DX: Z13.220 Encounter for screening for lipoid disorders (principal)
CPT/HCPCS: 36415; 80053; 80061

== ENCOUNTER 2022-02-14 17:37 | Emergency (ER) | payer BC, SELFPAY ==
[2022-02-14 19:35] VITALS: BP 136/90; PULSE 86; RESP 19; TEMP 36.8; O2SAT 100; BMI 37.8
[2022-02-14 19:54] LABS: UTC Influenza A Antigen Positive (Negative); UTC Influenza B Antigen Negative (Negative)
[2022-02-14 20:00] VITALS: BP 136/90; PULSE 86; RESP 19; TEMP 36.8; O2SAT 100
--- NOTE | 2022-02-14 20:10 | HMH.EDUTC ---
[facility] Clinical Impression: Influenza Disposition: Home, Self-Care Condition on Discharge: Good Instructions: How to Avoid a Cold or Flu, Influenza, DI for Influenza -- Adult Additional Instructions: ? Start Tamiflu today if you are going to take it. Discussed risk and possible benefits. ? Lots of rest ? Increase Fluids water, Gatorade, powerade, pedialyte,if infant/toddler/child ? Alternate Tylenol and / or ibuprofen as discussed for fever, aches, chills Follow up IMMEDIATELY with your family doctor for new or worsening Symptoms OR no noticeable improvement over the next 48-72 hours, 911 for difficulty or breathing ? You or your child area contagious until no fever, aches, chills for 24 hours with medication for symptoms ? Help Prevent the spread of influenza: ? Wash your hands often. Use soap and water. Wash your hands after you use the bathroom, change a child's diapers, or sneeze. Wash your hands before you prepare or eat food. Use gel hand cleanser that has 60% alcohol, when soap and water are not available. Do not touch your eyes, nose, or mouth unless you have washed your hands first. ? Cover your mouth when you sneeze or cough. Cough into a tissue or the bend of your arm. If you use a tissue, throw it away immediately and wash your hands. ? Clean shared items with a germ-killing home restoration service cleaner. Clean table surfaces, doorknobs, and light switches. Do not share towels, silverware, and dishes with people who are sick. Wash bed sheets, towels, silverware, and dishes with soap and water. ? Wear a mask over your mouth and nose if you are sick. The face mask may help protect others from becoming infected with the flu. Wear the mask when in common areas of your home or if you seek care with a healthcare provider. ? Stay away from others if you are sick. Stay at home until 24 hours after your fever and symptoms are gone. Prescriptions: Oseltamivir Phosphate [Tamiflu 75mg Capsule] 75 mg PO BID #10 cap Transmission Status: Pending to [facility] Referrals: Ernestina Bacon APRN [Primary Care Provider] - As needed Time of Disposition: 20:15 Medical Decision Making - Russell Inquiry Pt receiving controlled substance: No Russell was queried for this patient: No Vital Signs: 02/14/22 19:35 02/14/22 20:00 Temperature 98.2 F 98.2 F Temperature Source Oral Pulse Rate 86 Pulse Rate [Right Brachial] 86 Respiratory Rate 19 19 Blood Pressure 136/90 Blood Pressure [Right Arm] 136/90 Blood Pressure Mean [Right Arm] 105 Blood Pressure Source [Right Arm] Automatic Cuff Blood Pressure Position [Right Arm] Sitting 02 Sat by Pulse Oximetry 100 Oxygen Delivery Method Room Air - Lab Data Lab results reviewed: Yes: I reviewed the patient's lab results. Lab Results 02/14/22 19:38: Influenza Type A Ag Positive A, Influenza Type B Ag Negative [facility] - General Stated complaint: chills,fever Time Seen by Provider: 02/14/22 20:10 Mode of Arrival: Ambulatory Source of Information: Patient Limitations: No Limitations Description of Symptoms (Recalled from Triage Doc. by RN): PATIENT C/O FEVER, CHILLS, AND STOMACH CRAMPS SINCE YESTERDAY HEENT Symptoms (Recalled from RN notes): No Resp Symptoms (Recalled from RN notes): No Skin Symptoms (Recalled from RN notes): No MS Symptoms (Recalled from RN notes): No Functional Status (Recalled from RN notes): WNL - History of Present Illness Provider Complaint: Patient states that she started having fever, chills and body aches last night and has continued to get worse States that this evening she was not feeling better so she came in and get checked - Related Data Home Medications Medication Instructions Recorded Confirmed Azelastine/Fluticasone [Dymista 23 gm NS DAILY 01/18/18 02/19/18 Nasal [place]] Citalopram Hydrobromide [Celexa 20 mg PO DAILY 01/18/18 02/19/18 20mg Tablet] Desloratadine/Pseudoephedrine 1 each PO DAILY 01/18/18 02/17/18 [Clarinex-D 12 Hour T
== END 2022-02-14 20:23 | disposition home or self-care (01) ==
PROVIDERS: Emergency Provider Nurse Practitioner; PCP Nurse Practitioner
DX: J10.1 Influenza due to other identified influenza virus with other respiratory manifestations (principal); K21.9 Gastro-esophageal reflux disease without esophagitis; F41.9 Anxiety disorder, unspecified; Z79.51 Long term (current) use of inhaled steroids; Z79.899 Other long term (current) drug therapy; Z88.5 Allergy status to narcotic agent; Z91.010 Allergy to peanuts
CPT/HCPCS: 87804; 99213; G0463

== ENCOUNTER → 2022-03-12 11:17 | Outpatient (CLI) | payer BC, SELFPAY ==
--- NOTE | 2022-03-12 11:19 | CA_ITS ---
FINAL REPORT TECHNIQUE: Sonographic images of the veins of the right upper extremity were obtained from axilla to antecubital fossa. Additionally, images of the internal jugular vein and subclavian vein were also obtained. CLINICAL HISTORY: PAIN REDNESS MEDIAL RT ELBOW UP INTO HUMERUS X SEVERAL DAYS,NKI FINDINGS: There is thrombus seen in the right basilic vein. Remaining right upper extremity veins are patent. IMPRESSION: Right basilic vein thrombosis. The patient's doctor was notified of these findings at the time of the exam. Reviewed, Interpreted and Dictated by Josiah Escalona III, MD Transcribed by Deborah Echeverria Authenticated by Josiah Escalona III, MD on 03/12/2022 01:18:26 PM [facility]
== END ==
LOC: RT 11:18
PROVIDERS: PCP Family Medicine; Visit Provider Family Medicine
DX: I80.9 Phlebitis and thrombophlebitis of unspecified site (principal)
CPT/HCPCS: 93971

== ENCOUNTER 2023-01-03 14:31 | Emergency (ER) | payer BC, SELFPAY ==
[2023-01-03 14:45] VITALS: BP 153/58; PULSE 89; RESP 20; TEMP 36.7; O2SAT 98; BMI 33.3
[2023-01-03 14:59] LABS: UTC Strep Screen (Rapid) Negative (Negative)
--- NOTE | 2023-01-03 15:04 | EXP.UTC ---
Discharge Plan Disposition Patient Disposition: Home, Self-Care Condition: Good Prescriptions Prescriptions: New prednisone [prednisone] 20 mg tablet 20 mg PO BID 5 Days Qty: 10 0RF pseudoephedrine HCl [12 Hour Decongestant] 120 mg Tablet Extended Release 120 mg PO Q12H Qty: 20 0RF No Action citalopram 20 MG tablet 20 mg PO DAILY Allergy and Congestion Relief 10-240 mg tablet extended release 24 hr 1 tab PO DAILY Label Comments: TAKE ONE TABLET BY MOUTH ONCE DAILY nabumetone 750 MG tablet 750 mg PO BID Referrals Follow up/Referrals: Leonel Joyner MD [Primary Care Provider] - See instructions Clinical Impressions Clinical Impression: Sinusitis Instructions Patient Instructions: DI for Sinusitis Discharge ED Provider: Padmini Xiao [facility] [place] General Stated complaint: Sore throat, Cough, congestion Mode of Arrival: Ambulatory Source of Information: Patient Limitations: No Limitations Time Seen by Provider: 01/03/23 15:04 Description of Symptoms (Recalled from Triage Doc. by RN): sore throat, coughing, congestion, and fatigue HEENT Symptoms (Recalled from RN notes): Yes Resp Symptoms (Recalled from RN notes): No Skin Symptoms (Recalled from RN notes): No MS Symptoms (Recalled from RN notes): No Functional Status (Recalled from RN notes): n/a History of Present Illness Provider Complaint: Sore throat, nasal congestion, cough since last night. No fever. Onset (ago): day(s) (1) Relieving factors: none Exacerbating factors: none Associated symptoms: denies other symptoms Treatments prior to arrival: none Related Data Home Medications Medication Instructions Recorded Confirmed citalopram 20 mg tablet 20 mg PO DAILY Anxiety 01/18/18 01/03/23 loratadine-pseudoephedrine ER 10 1 tab PO DAILY . 01/03/23 01/03/23 mg-240 mg tablet,extended [id number] (Allergy and Congestion Relief) nabumetone 750 mg tablet 750 mg PO BID . 01/03/23 01/03/23 Previous Rx's Medication Instructions Recorded prednisone 20 mg tablet 20 mg PO BID 5 days #10 tabs 01/03/23 pseudoephedrine HCl 120 mg 120 mg PO Q12H #20 tabs 01/03/23 tablet,extended release (12 Hour Decongestant ER) Allergies Allergy/AdvReac Type Severity Reaction Status Date / Time codeine [CODEINE] Allergy Mild Verified 01/03/23 14:59 peanut [PEANUT] Allergy Mild Verified 01/03/23 14:59 Worker's Comp Is this a Worker's Comp case?: No [facility] Disclaimer: The information contained in this section may have been updated after the patient was seen, as this information can be updated by other users. Social History Smoking Status: Never smoker alcohol intake: never counseling provided: provider counseling substance use type: denies use current occupational status: other Travel in the last 8 weeks: None household members: none ROS Obtained: Yes All systems reviewed & no additional complaints except as documented Constitutional Constitutional: Reports body ache, Reports chills, Denies fever(s) and Reports malaise ENT Ears, Nose, Mouth, and Throat: Reports nasal congestion and Reports sore throat Respiratory Respiratory: Reports cough Physical Exam General General appearance: alert and in no apparent distress Head Head exam: atraumatic, normocephalic and normal inspection Eye Eye exam: Present normal appearance, PERRL and EOMI ENT ENT exam: Present normal exam, mucous membranes moist, TM's normal bilaterally and normal external ear exam Expanded ENT Exam Nose exam: Present sinus tenderness Throat exam: Present tonsillar erythema Neck Neck exam: Present normal inspection, full ROM and trachea midline; Absent meningismus or lymphadenopathy Chest Chest inspection: Present normal inspection and symmetric chest wall rise; Absent tenderness Respiratory Respiratory exam: Present normal lung sounds bilaterally; Absent res
[2023-01-03 15:52] VITALS: BP 153/58; PULSE 89; RESP 20; TEMP 36.7; O2SAT 98
== END 2023-01-03 15:50 | disposition home or self-care (01) ==
PROVIDERS: Emergency Provider Physician Assistant; PCP Family Medicine
DX: J32.9 Chronic sinusitis, unspecified (principal)
CPT/HCPCS: 87880; 96372; 99212; 99213; G0463; J0696

== ENCOUNTER 2023-03-01 15:16 | Emergency (ER) | payer BC, SELFPAY ==
[2023-03-01 15:30] VITALS: BP 132/77; PULSE 102; RESP 20; TEMP 36.5; O2SAT 99; BMI 34.5
--- NOTE | 2023-03-01 16:05 | EXP.UTC ---
Discharge Plan Disposition Patient Disposition: Home, Self-Care Condition: Good Prescriptions Prescriptions: New azithromycin [Zithromax] 250 mg tablet 250 mg PO UD DOSE PK Qty: 6 0RF Rx Instructions: Take two (2) tablets today, then one (1) tablet days #2 thru #5 benzonatate [benzonatate] 100 mg capsule 100 mg PO TIDP PRN (Reason: Cough) Qty: 30 0RF No Action citalopram 20 MG tablet 20 mg PO DAILY Allergy and Congestion Relief 10-240 mg tablet extended release 24 hr 1 tab PO DAILY Label Comments: TAKE ONE TABLET BY MOUTH ONCE DAILY nabumetone 750 MG tablet 750 mg PO BID esomeprazole magnesium 40 mg capsule,delayed release(DR/EC) 40 mg PO DAILY Label Comments: TAKE ONE CAPSULE BY MOUTH EVERY DAY Referrals Follow up/Referrals: Leonel Joyner MD [Primary Care Provider] - See instructions Activity Restrictions/Add. Instructions Additional Instructions/Restrictions: Drink plenty of fluids. Take tylenol or ibuprofen for pain or fever. Take the medications as directed. Follow up with your regular doctor. GO TO THE ER FOR ANY WORSENING SYMPTOMS Clinical Impressions Clinical Impression: Sinusitis, Upper respiratory infection Instructions Patient Instructions: DI for Sinusitis, DI for Viral Syndrome Discharge ED Provider: Tyler Crawley [facility] General Stated complaint: STEINER,runny nose Head congestion Mode of Arrival: Ambulatory Source of Information: Patient Limitations: No Limitations Time Seen by Provider: 03/01/23 15:20 Description of Symptoms (Recalled from Triage Doc. by RN): stuffy/runny nose, cough, STEINER, and ear pain HEENT Symptoms (Recalled from RN notes): Yes Resp Symptoms (Recalled from RN notes): No Skin Symptoms (Recalled from RN notes): No MS Symptoms (Recalled from RN notes): No Functional Status (Recalled from RN notes): n/a History of Present Illness Provider Complaint: She states that for the past 4 days she has had a very stuffy/runny nose, cough, STEINER, and bilateral ear pain Related Data Home Medications Medication Instructions Recorded Confirmed citalopram 20 mg tablet 20 mg PO DAILY Anxiety 01/18/18 03/01/23 loratadine-pseudoephedrine ER 10 1 tab PO DAILY . 01/03/23 03/01/23 mg-240 mg tablet,extended [id number] (Allergy and Congestion Relief) nabumetone 750 mg tablet 750 mg PO BID . 01/03/23 01/03/23 esomeprazole magnesium 40 mg 40 mg PO DAILY gerd 03/01/23 03/01/23 capsule,delayed release Previous Rx's Medication Instructions Recorded azithromycin 250 mg tablet 250 mg PO UD DOSE PK #6 tabs 03/01/23 (Zithromax) benzonatate 100 mg capsule 100 mg PO TIDP PRN Cough #30 caps 03/01/23 Allergies Allergy/AdvReac Type Severity Reaction Status Date / Time codeine [CODEINE] Allergy Mild Verified 03/01/23 15:48 peanut [PEANUT] Allergy Mild Verified 03/01/23 15:48 Worker's Comp Is this a Worker's Comp case?: No [facility] Disclaimer: The information contained in this section may have been updated after the patient was seen, as this information can be updated by other users. Social History Smoking Status: Never smoker alcohol intake: never counseling provided: provider counseling substance use type: denies use current occupational status: other Travel in the last 8 weeks: None household members: none ROS Obtained: Yes All systems reviewed & no additional complaints except as documented Constitutional Constitutional: Reports poor appetite Eyes Eyes: Reports system reviewed and no additional complaints, except as documented ENT Ears, Nose, Mouth, and Throat: Reports as per HPI Cardiovascular Cardiovascular: Reports system reviewed and no additional complaints, except as documented and Denies chest pain Respiratory Respiratory: Denies shortness of breath, Denies chest congestion, Reports cough, Denies stridor and De
[2023-03-01 17:05] VITALS: BP 132/77; PULSE 102; RESP 20; TEMP 36.5; O2SAT 99
[2023-03-01 17:06] LABS: Adenovirus,PCR Not Detected (NotDetected); Bordetella Pertussis Not Detected (NotDetected); Chlamydophila Pneumoniae, PCR Not Detected (NotDetected); Coronavirus 19, PCR Not Detected (NotDetected); Coronavirus 229E Not Detected (NotDetected); Coronavirus NL63 Not Detected (NotDetected); Coronavirus OC43 Not Detected (NotDetected); Coronovirus HKU1,PCR Not Detected (NotDetected); Human Metapneumovirus Not Detected (NotDetected); Influenza A, PCR Not Detected (NotDetected); Influenza AH1, 2009 Not Detected (NotDetected); Influenza AH1, PCR Not Detected (NotDetected); Influenza AH3,PCR Not Detected (NotDetected); Influenza B, PCR Not Detected (NotDetected); Mycoplasma Pneumoniae, PCR Not Detected (NotDetected); Parainfluenza 1, PCR Not Detected (NotDetected); Parainfluenza 2, PCR Not Detected (NotDetected); Parainfluenza 4, PCR Not Detected (NotDetected); Respiratory Syncytial Virus Not Detected (NotDetected); Rhinovirus/Enterovirus Not Detected (NotDetected)
[2023-03-01 18:46] LABS: Parainfluenza 3, PCR Detected (NotDetected)
== END 2023-03-01 17:04 | disposition home or self-care (01) ==
PROVIDERS: Emergency Provider Nurse Practitioner Family; PCP Family Medicine
DX: J01.90 Acute sinusitis, unspecified (principal); J06.9 Acute upper respiratory infection, unspecified; H92.03 Otalgia, bilateral; R05.9 Cough, unspecified; R51.9 Headache, unspecified
CPT/HCPCS: 87581; 87632; 87798; 99212; 99214; C9803; G0463; J1040; U0003; U0005

== ENCOUNTER 2023-05-17 12:54 | Emergency (ER) | payer BC, SELFPAY ==
[2023-05-17] VITALS (8 sets, daily range): BP systolic 107–130; BP diastolic 66–83; PULSE 114–124; RESP 18–22; TEMP 36.8–37.1; O2SAT 93–100; BMI 34.3
--- NOTE | 2023-05-17 12:59 | ECG_ITS ---
APPROVED REPORT Exam: Resting ECG HR:120 bpm ECG Measurements Heart Rate 120 AXES VA 143 P 59 QRSd 146 QRS 66 QT 323 T 1 QTc 395 Conclusion SINUS TACHYCARDIA RIGHT BUNDLE BRANCH BLOCK [120+ ms QRS DURATION, UPRIGHT V1, 40+ ms S IN I/aVL/V4/V5/V6] ABNORMAL ECG UNCONFIRMED REPORT Electronically signed by : Chan Navarro MD 05/17/2023 21:15:41
--- NOTE | 2023-05-17 13:00 | PC.NURSE ---
EKG done arrival 1259
--- NOTE | 2023-05-17 13:13 | XR_ITS ---
PROCEDURE INFORMATION: Exam: XR Chest Exam date and time: 05/17/2023 2:25 PM Age: 52 years old Clinical indication: Pain; Chest pressure; Additional info: Cp, right heart strain on ekg TECHNIQUE: Imaging protocol: Radiologic exam of the chest. Views: 1 view. COMPARISON: CT ANGIO CHEST PE PROTOCOL 05/17/2023 2:20 PM FINDINGS: Lungs: No evidence of pneumonia or interstitial edema. Pleural spaces: Unremarkable. No pleural effusion. No pneumothorax. Heart/Mediastinum: Unremarkable. No cardiomegaly. Bones/joints: Unremarkable. IMPRESSION: No evidence of pneumonia or interstitial edema.
--- NOTE | 2023-05-17 13:14 | CT_ITS ---
PROCEDURE INFORMATION: Exam: CTA Chest With Contrast Exam date and time: 05/17/2023 2:20 PM Age: 52 years old Clinical indication: Pain; Chest pressure; Additional info: R heart strain ekg pattern, tachycardia TECHNIQUE: Imaging protocol: Computed tomographic angiography of the chest with contrast. Exam focused on the arteries. 3D rendering (Not supervised by radiologist): MIP and/or 3D reconstructed images were created by the technologist. Radiation optimization: All CT scans at this facility use at least one of these dose optimization techniques: automated exposure control; mA and/or kV adjustment per patient size (includes targeted exams where dose is matched to clinical indication); or iterative reconstruction. Contrast material: ISO 370; Contrast volume: 70 ml; Contrast route: INTRAVENOUS (IV); REPORTING DATA: Count of CT and Cardiac NM exams in prior 12 months: This patient has received 0 known CTs and 0 known cardiac nuclear medicine studies in the 12 months prior to the current study. COMPARISON: RF [place] upper GI esophagus w/air 02/03/2018 11:10 AM FINDINGS: Pulmonary arteries: There are bilateral occlusive/subocclusive pulmonary emboli propagating from the main pulmonary arteries into lower lobe branches. Aorta: Aorta is nonaneurysmal. Aorta is nonaneurysmal. Lungs: No evidence of airspace opacity or interlobular septal thickening. Pleural spaces: No pneumothorax. No pleural effusion. Heart: The left atrial appendage is normal. Heart RV/LV ratio: RV LV ratio is 1.8 Coronary arteries: No significant coronary artery calcifications. Lymph nodes: No evidence of mediastinal or hilar lymphadenopathy. Bones/joints: Unremarkable. No acute fracture. Soft tissues: Unremarkable. IMPRESSION: 1. Bilateral occlusive/subocclusive pulmonary emboli propagating from the main pulmonary arteries into lower lobe branches 2. Right heart strain
[2023-05-17 13:28] LABS: Basophils # 0.1 K/mm3 (0-0.2); Basophils % 0.5 % (0.1-2.0); Chloride 102 mmol/L (98-107); Eosinophils # 0.1 K/mm3 (0.0-0.4); Eosinophils % 0.9 % (0.1-12.0); Hematocrit 28.6 % (37.0-47.0); Hemoglobin 7.6 g/dL (12.2-16.2); Lymphocytes # 3.9 K/mm3 (0.7-4.5); Lymphocytes % 37.8 % (10-50); Mean Corpuscular HGB Conc 26.6 g/dL (31.8-35.4); Mean Corpuscular Volume 55.5 fl (81-99); Mean Platelet Volume 8.1 fl (7.4-10.4); Monocytes # 0.8 K/mm3 (0.1-1.0); Monocytes % 7.3 % (1.7-9.3); Neutrophils # 5.5 K/mm3 (1.8-7.8); Neutrophils % 53.5 % (37.0-80.0); Platelet Count 603 K/mm3 (142-424); Potassium 4.1 mmoL/L (3.5-5.1); Red Blood Count 5.15 M/mm3 (4.20-5.40); Red Cell Distribution Width 23.2 % (11.5-17.5); Sodium 136 mmol/L (136-145); White Blood Count 10.3 K/mm3 (4.8-10.8)
[2023-05-17 13:30] LABS: Blood Urea Nitrogen 9 mg/dl (7-17); Creatinine Clearance Estimated 131 mL/min (50-200); Estimated Glomerular Filt Rate 88 ml/min (>60); GFR (African American) 106 ML/MIN (>60)
[2023-05-17 13:31] LABS: Alanine Aminotransferase 18 U/L (12-78); Albumin Level 4.3 g/dl (3.5-5.0); Albumin/Globulin Ratio 1.1 (1.1-1.8); Alkaline Phosphatase 68 U/L (38-126); Aspartate Amino Transferase 35 U/L (14-36); Bilirubin,Total 0.3 mg/dl (0.2-1.3); Calcium 8.7 mg/dl (8.4-10.2); Glucose 102 mg/dl (74-100); Total Protein,Serum 8.3 g/dl (6.3-8.2)
[2023-05-17 13:33] LABS: Mean Corpuscular Hemoglobin 14.8 pg (27.0-31.2)
[2023-05-17 13:40] LABS: NT Pro Brain Natriuretic Pep. 124 pg/mL (0-125)
[2023-05-17 13:43] LABS: Troponin I 0.03 ng/ml (0.00-0.034)
[2023-05-17 14:06] LABS: T4 (Thyroxine) 14.7 ug/dl (5.53-11.0)
[2023-05-17 14:15] LABS: Coronavirus 19, PCR Not Detected (NotDetected); Influenza A, PCR Not Detected (NotDetected); Influenza B, PCR Not Detected (NotDetected)
[2023-05-17 14:19] LABS: Thyroid Stimulating Hormone 1.14 uIU/mL (0.465-4.68)
--- NOTE | 2023-05-17 14:26 | HMH.EDGENADL ---
Discharge Plan Disposition Patient Disposition: Xfer Intermediate Care Fac Condition: Good Chief Complaint: Anxiety Prescriptions Prescriptions: No Action citalopram 20 MG tablet 20 mg PO DAILY Allergy and Congestion Relief 10-240 mg tablet extended release 24 hr 1 tab PO DAILY Label Comments: TAKE ONE TABLET BY MOUTH ONCE DAILY nabumetone 750 MG tablet 750 mg PO BID esomeprazole magnesium 40 mg capsule,delayed release(DR/EC) 40 mg PO DAILY Label Comments: TAKE ONE CAPSULE BY MOUTH EVERY DAY azithromycin [Zithromax] 250 mg tablet 250 mg PO UD DOSE PK Qty: 6 0RF Rx Instructions: Take two (2) tablets today, then one (1) tablet days #2 thru #5 benzonatate [benzonatate] 100 mg capsule 100 mg PO TIDP PRN (Reason: Cough) Qty: 30 0RF Referrals Follow up/Referrals: Leonel Joyner MD [Primary Care Provider] - See instructions Clinical Impressions Clinical Impression: Pulmonary emboli, Chest pain Discharge ED Provider: Raheem Martin General Adult HPI General Chief complaint: Anxiety Stated complaint: SOA/Chest tightness Time Seen by Provider: 05/17/23 13:00 Mode of Arrival: EMS Source of Information: Patient and EMS Limitations: No Limitations Description of Symptoms (Recalled from ER Triage Doc. by RN): pt to ed c/o chest pressure and SOA that came on suddenly at rest. pt states she felt dizzy and had a near syncopal episode. ems reports giving pt 324mg of aspirin in route. pt denies any cardiac hx. pt reports previous DVT to the left upper arm. History of Present Illness HPI narrative: This a 52-year-old female with history of hypertension, GERD presenting with chest pressure. Patient states that she has been feeling short of breath over the past few months while exerting self. Today, was walking outside, attempting to eat when she felt acute pressure in her chest. Substernal, did not radiate, associated with shortness of breath and diaphoresis. No nausea or vomiting. Patient had no syncopal episode or neurologic deficits. Patient called EMS. EMS gave patient full dose aspirin and patient remains symptomatic on arrival to the ED. Related Data Home Medications Medication Instructions Recorded Confirmed citalopram 20 mg tablet 20 mg PO DAILY Anxiety 01/18/18 03/01/23 loratadine-pseudoephedrine ER 10 1 tab PO DAILY . 01/03/23 03/01/23 mg-240 mg tablet,extended [id number] (Allergy and Congestion Relief) nabumetone 750 mg tablet 750 mg PO BID . 01/03/23 01/03/23 esomeprazole magnesium 40 mg 40 mg PO DAILY gerd 03/01/23 03/01/23 capsule,delayed release Previous Rx's Medication Instructions Recorded azithromycin 250 mg tablet 250 mg PO UD DOSE PK #6 tabs 03/01/23 (Zithromax) benzonatate 100 mg capsule 100 mg PO TIDP PRN Cough #30 caps 03/01/23 Allergies Allergy/AdvReac Type Severity Reaction Status Date / Time codeine [CODEINE] Allergy Mild Verified 03/01/23 15:48 peanut [PEANUT] Allergy Mild [facility]01[facility]23 [facility] Disclaimer: The information contained in this section may have been updated after the patient was seen, as this information can be updated by other users. Social History Smoking Status: Never smoker alcohol intake: never counseling provided: provider counseling substance use type: denies use current occupational status: other Travel in the last 8 weeks: None household members: none ROS Obtained: Yes All systems reviewed & no additional complaints except as documented Physical Exam General General appearance: alert, in no apparent distress and other (Pale) Head Head exam: atraumatic, normocephalic and normal inspection Eye Eye exam: Present normal appearance, PERRL and EOMI ENT ENT exam: Present normal exam, normal oropharynx, mucous membranes moist, TM's normal bilaterally and normal external ear exam Neck Neck exam: Pre
[2023-05-17 14:46] LABS: Anion Gap 15.1 mEq/L (5-15); Carbon Dioxide 23 mmol/L (22.0-30.0)
--- NOTE | 2023-05-17 15:01 | PC.NURSE ---
contacted pharmacy for heparin dosing for PE
--- NOTE | 2023-05-17 15:02 | PC.NURSE ---
calling [facility]
--- NOTE | 2023-05-17 15:03 | PC.NURSE ---
Called RAD for disk
--- NOTE | 2023-05-17 15:05 | PC.NURSE ---
call made to [employer] [facility] [place].
--- NOTE | 2023-05-17 15:06 | P.CONPHA_ITS ---
[facility] Pharmacy Heparin Dosing Demographic Data Admission date:: 05/17/23 Date: 05/17/23 Time: 15:06 Allergies Allergy/AdvReac Type Severity Reaction Status Date / Time codeine [CODEINE] Allergy Mild Verified 03/01/23 15:48 peanut [PEANUT] Allergy Mild Verified 03/01/23 15:48 Height: 1.6 m Weight: 87.997 kg Indication Medication therapy:: Heparin Current Indications:: BILATERAL PE (HIGH DOSE PROTOCOL) Current Active Problems (Updated 05/17/23 @ 15:18 by Raheem Martin MD) Pulmonary emboli (Acute) Chest pain (Acute) CVA?: No Bleeding problem?: No Kidney disease?: No IL?: No Desired PTT range:: 50-75 seconds Labs Anticoagulation Lab Results:: 05/17/23 13:10 Hgb 7.6 L Hct 28.6 L Plt Count 603 H Monitoring Dose Monitor 1: Date: 05/17/23 Time: 15:00 PTT Result:: 19.6 SECONDS (BASELINE) Infusion Rate:: INITIATE HEPARIN DRIP AT 1600 UNITS/HOUR = 32 ML/HOUR AND BOLUS 7000 UNITS HEPARIN IV ONCE. Comment:: 15:00-BASELINE ORDERED, AWAITING RESULTS. WENT AHEAD AND DOSED PER HIGH DOSE PROTOCOL. ENTERED PTT FOR 16:30 (A LITTLE OVER AN HOUR LATER TO ALLOW FOR TIME TO START DRIP). 05/18/23 - PT TRANSFERRED TO OVERNIGHT. Core Measures Is INR > or = 2 at discharge?: No Most Recent Labs:: Laboratory Results - last 24 hr 05/17/23 13:10: WBC 10.3, RBC 5.15, Hgb 7.6 L, Hct 28.6 L, MCV 55.5 L, MCH 14.8 L*, MCHC 26.6 L, RDW 23.2 H, Plt Count 603 H, MPV 8.1, Neut % (Auto) 53.5, Lymph % (Auto) 37.8, [place] % (Auto) 7.3, Eos % (Auto) 0.9, Baso % (Auto) 0.5, Neut # (Auto) 5.5, Lymph # (Auto) 3.9, [place] # (Auto) 0.8, Eos # (Auto) 0.1, Baso # (Auto) 0.1 05/17/23 13:10: Sodium 136, Potassium 4.1, Chloride 102, Carbon Dioxide 23, Anion Gap 15.1 H, BUN 9, Creatinine 0.70, Estimated Creat Clear 131, Estimated GFR 88, Est GFR ( Amer) 106, Glucose 102 H, Calcium 8.7, Total Bilirubin 0.3, AST 35, ALT 18, Alkaline Phosphatase 68, Troponin I 0.03, NT-Pro-B Natriuret Pep 124, Total Protein 8.3 H, Albumin 4.3, Globulin 4.0 H, A lbumin/Globulin Ratio 1.1 05/17/23 13:10: TSH 1.14, Thyroxine (T4) 14.7 H 05/17/23 13:20: SARS-CoV-2 (PCR) Not detected, Influenza A Untype (PCR) Not detected, Influenza Type B (PCR) Not detected If INR was < than 2.0 why was therapy stopped?: PATIENT TRANSFERRED TO Were Heparin and Warfarin started on the same day?: No If not, why?: PATIENT TRANSFERRED TO
--- NOTE | 2023-05-17 15:09 | PC.NURSE ---
talking to dr dukes
--- NOTE | 2023-05-17 15:14 | PC.NURSE ---
pt accepted to [facility], ok per for pt to travel by ground. [employer] contacted to cancel helicopter on standby
--- NOTE | 2023-05-17 15:27 | PC.NURSE ---
report called to Simon at ER
--- NOTE | 2023-05-17 15:27 | PC.NURSE ---
[facility] called for transport; air travel cancelled
[2023-05-17 15:58] LABS: PTT Heparin (inpatient only) 19.6 Seconds (23.6-34.0)
--- NOTE | 2023-05-17 16:02 | PC.NURSE ---
GAVE PT DAUGHTER WHO IS A NURSE AT [facility] AREA A BEDSIDE COMMODE FOR PT TO VOID STATED SHE DIDNT NEED ANY HELP
--- NOTE | 2023-05-18 00:31 | PC.NURSE ---
called for lab reports. Stated they did not receive any in the transfer packet. Faxed to [phone]. No response receviied on confirmation page. Attempting again.
== END 2023-05-17 16:56 ==
PROVIDERS: Emergency Provider Emergency Medicine; PCP Family Medicine
DX: I26.99 Other pulmonary embolism without acute cor pulmonale (principal); R07.9 Chest pain, unspecified; D50.9 Iron deficiency anemia, unspecified; R94.31 Abnormal electrocardiogram [ECG] [EKG]; I10 Essential (primary) hypertension; K21.9 Gastro-esophageal reflux disease without esophagitis
CPT/HCPCS: 71045; 71275; 80053; 83880; 84436; 84443; 84484; 85025; 85730; 87636; 93005; 96374; 96375; 99285; C9803; Q9967; U0003; U0005

== ENCOUNTER 2023-06-16 15:49 | Emergency (ER) | payer BC, SELFPAY ==
[2023-06-16 15:51] VITALS: BP 167/93; PULSE 109; RESP 18; TEMP 36.7; O2SAT 98; BMI 33.3
--- NOTE | 2023-06-16 16:15 | EXP.UTC ---
Discharge Plan Disposition Patient Disposition: Home, Self-Care Condition: Good Prescriptions Prescriptions: New amoxicillin [amoxicillin] 875 mg tablet 875 mg PO Q12H Qty: 20 0RF benzonatate [benzonatate] 100 mg capsule 100 mg PO TIDP PRN (Reason: Cough) Qty: 30 0RF methylprednisolone 4 mg Tablets,Dose Pack 4 mg PO DIRECTED Qty: 21 0RF No Action Eliquis 5 mg tablet 5 mg PO BID azelastine-fluticasone 137-50 mcg/spray spray,non-aerosol 1 spray intranasal BID Rx Instructions: administer into each nostril ascorbic acid (vitamin C) 250 mg tablet 250 mg PO DAILY ferrous sulfate 324 mg (65 mg iron) tablet,delayed release (DR/EC) 324 mg PO Q OTHER DAY medroxyprogesterone 10 mg tablet 10 mg PO BID Qty: 60 0RF citalopram 20 mg tablet 10 mg PO DAILY Allergy and Congestion Relief 10-240 mg tablet extended release 24 hr 1 tab PO DAILY Patient Comments: TAKE ONE TABLET BY MOUTH ONCE DAILY esomeprazole magnesium 40 mg capsule,delayed release(DR/EC) 40 mg PO DAILY Patient Comments: TAKE ONE CAPSULE BY MOUTH EVERY DAY Referrals Follow up/Referrals: Leonel Joyner MD [Primary Care Provider] - See instructions Activity Restrictions/Add. Instructions Additional Instructions/Restrictions: Drink plenty of fluids. Take tylenol or ibuprofen for pain or fever. Take the medications as directed. Follow up with your regular doctor. GO TO THE ER FOR ANY WORSENING SYMPTOMS Don't start the oral steroids until tomorrow, since you had the shot here today. Clinical Impressions Clinical Impression: Sinusitis Instructions Patient Instructions: Sinusitis, DI for Sinusitis, Methylprednisolone, Amoxicillin, Methylprednisolone Injection Discharge ED Provider[place] [facility] [place] General Stated complaint: head congestion Mode of Arrival: Ambulatory Source of Information: Patient Limitations: No Limitations Time Seen by Provider: 06/16/23 16:15 Description of Symptoms (Recalled from Triage Doc. by RN): Patient reports upper respiratory symptoms. COughing, sneezing, runny nose, congestion and headache. HEENT Symptoms (Recalled from RN notes): Yes Resp Symptoms (Recalled from RN notes): No Skin Symptoms (Recalled from RN notes): No MS Symptoms (Recalled from RN notes): No Functional Status (Recalled from RN notes): wnl History of Present Illness Provider Complaint: She states that for the past 5 days she has had sinus congestion, and chest congestion. Related Data Home Medications Medication Instructions Recorded Confirmed loratadine-pseudoephedrine ER 10 1 tab PO DAILY . 01/03/23 05/29/23 mg-240 mg tablet,extended [id number] (Allergy and Congestion Relief) esomeprazole magnesium 40 mg 40 mg PO DAILY gerd 03/01/23 05/29/23 capsule,delayed release apixaban 5 mg tablet (Eliquis) 5 mg PO BID 05/29/23 05/29/23 ascorbic acid (vitamin C) 250 mg 250 mg PO DAILY 05/29/23 05/29/23 tablet azelastine-fluticasone 137 mcg-50 1 spray intranasal BID 05/29/23 05/29/23 mcg/spray nasal spray citalopram 20 mg tablet 10 mg PO DAILY Anxiety 05/29/23 05/29/23 ferrous sulfate 324 mg (65 mg 324 mg PO Q OTHER DAY 05/29/23 05/29/23 iron) tablet,delayed release Previous Rx's Medication Instructions Recorded medroxyprogesterone 10 mg tablet 10 mg PO BID #60 tabs 05/29/23 amoxicillin 875 mg tablet 875 mg PO Q12H #20 tabs 06/16/23 benzonatate 100 mg capsule 100 mg PO TIDP PRN Cough #30 caps 06/16/23 methylprednisolone 4 mg tablets in 4 mg PO DIRECTED #21 tabs 06/16/23 a dose pack Allergies Allergy/AdvReac Type Severity Reaction Status Date / Time codeine [CODEINE] Allergy Mild Verified 05/29/23 08:05 peanut [PEANUT] Allergy Mild Verified 05/29/23 08:05 Worker's Comp Is this a Worker's Comp case?: No [facility] Disclaimer: The information contained in this section may have been updated after the lewis
[2023-06-16 16:55] VITALS: BP 167/93; PULSE 109; RESP 18; TEMP 36.7; O2SAT 98
== END 2023-06-16 16:56 | disposition home or self-care (01) ==
PROVIDERS: Emergency Provider Nurse Practitioner Family; PCP Family Medicine
DX: J01.90 Acute sinusitis, unspecified (principal)
CPT/HCPCS: 96372; 99212; 99214; G0463; J0696

== ENCOUNTER → 2023-07-10 17:27 | Outpatient (CLI) | payer BC, SELFPAY ==
[2023-07-10 17:31] VITALS: BMI 33.6
[2023-07-10 18:07] LABS: Basophils # 0.1 K/mm3 (0-0.2); Basophils % 0.9 % (0.1-2.0); Eosinophils # 0.3 K/mm3 (0.0-0.4); Eosinophils % 2.1 % (0.1-12.0); Hematocrit 38.4 % (37.0-47.0); Hemoglobin 10.9 g/dL (12.2-16.2); Lymphocytes # 5.5 K/mm3 (0.7-4.5); Lymphocytes % 45.8 % (10-50); Mean Corpuscular HGB Conc 28.5 g/dL (31.8-35.4); Mean Corpuscular Volume 63.3 fl (81-99); Mean Platelet Volume 6.9 fl (7.4-10.4); Monocytes # 0.8 K/mm3 (0.1-1.0); Monocytes % 6.8 % (1.7-9.3); Neutrophils # 5.3 K/mm3 (1.8-7.8); Neutrophils % 44.4 % (37.0-80.0); Red Blood Count 6.07 M/mm3 (4.20-5.40); Red Cell Distribution Width 24.6 % (11.5-17.5)
[2023-07-10 18:12] LABS: Platelet Count 1092 K/mm3 (142-424)
[2023-07-10 19:20] LABS: Iron 16 ug/dL (37-170)
[2023-07-10 19:37] LABS: Total Iron Binding Capacity 476 ug/dL (265-497)
[2023-07-10 19:59] LABS: Ferritin 5.53 ng/ml (11.1-264)
== END | disposition home or self-care (01) ==
PROVIDERS: PCP Family Medicine; Visit Provider Obstetrics & Gynecology
DX: N92.1 Excessive and frequent menstruation with irregular cycle (principal); D50.9 Iron deficiency anemia, unspecified
CPT/HCPCS: 36415; 82728; 83540; 83550; 85025

== ENCOUNTER 2023-07-15 15:48 | Emergency (ER) | payer BC, SELFPAY ==
[2023-07-15] VITALS (8 sets, daily range): BP systolic 120–144; BP diastolic 65–79; PULSE 82–93; RESP 19–20; TEMP 36.7–37.1; O2SAT 98–100; BMI 27.4
--- NOTE | 2023-07-15 15:48 | ECG_ITS ---
APPROVED REPORT Exam: Resting ECG HR:81 bpm ECG Measurements Heart Rate 81 AXES UT 104 P 34 QRSd 86 QRS 68 QT 387 T 74 QTc 424 Conclusion SINUS RHYTHM WITH SHORT UT INTERVAL MODERATE ST DEPRESSION [0.05+ mV ST DEPRESSION] ABNORMAL ECG UNCONFIRMED REPORT Electronically signed by : Chan Navarro MD 07/15/2023 19:39:39
--- NOTE | 2023-07-15 16:18 | XR_ITS ---
PROCEDURE INFORMATION: Exam: XR Chest Exam date and time: 07/15/2023 4:18 PM Age: 52 years old Clinical indication: Shortness of breath; Additional info: SOA cp, h/o pe TECHNIQUE: Imaging protocol: Radiologic exam of the chest. Views: 1 view. COMPARISON: CR XR CHEST PORTABLE 05/17/2023 2:25 PM FINDINGS: Lungs: Unremarkable. No consolidation. Pleural spaces: Unremarkable. No pleural effusion. No pneumothorax. Heart/Mediastinum: Unremarkable. No cardiomegaly. Bones/joints: Unremarkable. IMPRESSION: No acute findings.
[2023-07-15 16:28] LABS: Basophils # 0.1 K/mm3 (0-0.2); Basophils % 0.5 % (0.1-2.0); Eosinophils # 0.2 K/mm3 (0.0-0.4); Eosinophils % 1.7 % (0.1-12.0); Hematocrit 36.4 % (37.0-47.0); Hemoglobin 10.6 g/dL (12.2-16.2); Lymphocytes # 3.8 K/mm3 (0.7-4.5); Mean Corpuscular Hemoglobin 18.3 pg (27.0-31.2); Mean Corpuscular Volume 63.1 fl (81-99); Mean Platelet Volume 7.1 fl (7.4-10.4); Monocytes # 0.9 K/mm3 (0.1-1.0); Monocytes % 9.6 % (1.7-9.3); Neutrophils # 4.4 K/mm3 (1.8-7.8); Neutrophils % 47.3 % (37.0-80.0); Red Blood Count 5.77 M/mm3 (4.20-5.40); Red Cell Distribution Width 24.3 % (11.5-17.5); White Blood Count 9.4 K/mm3 (4.8-10.8)
[2023-07-15 16:29] LABS: Platelet Count 1021 K/mm3 (142-424)
[2023-07-15 16:31] LABS: Alanine Aminotransferase 18 U/L (12-78); Albumin Level 4.5 g/dl (3.5-5.0); Alkaline Phosphatase 68 U/L (38-126); Anion Gap 16.8 mEq/L (5-15); Aspartate Amino Transferase 25 U/L (14-36); Bilirubin,Total 0.3 mg/dl (0.2-1.3); Blood Urea Nitrogen 7 mg/dl (7-17); Calcium 8.9 mg/dl (8.4-10.2); Carbon Dioxide 21 mmol/L (22.0-30.0); Chloride 105 mmol/L (98-107); Creatinine Clearance Estimated 94 mL/min (50-200); Estimated Glomerular Filt Rate 75 ml/min (>60); GFR (African American) 91 ML/MIN (>60); Globulin 4.3 g/dL (1.3-3.2); Glucose 91 mg/dl (74-100); Potassium 3.8 mmoL/L (3.5-5.1); Sodium 139 mmol/L (136-145); Total Protein,Serum 8.8 g/dl (6.3-8.2)
[2023-07-15 16:34] LABS: INR 1.02 (0.9-1.1)
[2023-07-15 16:34] LABS: VBG Base Excess -4.5 mmol/L (-2.4-2.3); VBG HCO3 21.3 mmol/L (23-30); VBG Oxygen Saturation 67.6 % (50-70); VBG PCO2 40.8 mmol/L (35-51); VBG PH 7.34 mmol/L (7.31-7.41); VBG PO2 38.8 mmol/L (28-40); VBG Total CO2 22.6 mmol/L (23-27)
--- NOTE | 2023-07-15 16:38 | HMH.EDGENADL ---
Discharge Plan Disposition Patient Disposition: Home, Self-Care Chief Complaint: Chest Pain Prescriptions Prescriptions: No Action Eliquis 5 mg tablet 5 mg PO BID azelastine-fluticasone 137-50 mcg/spray spray,non-aerosol 1 spray intranasal BID Rx Instructions: administer into each nostril ascorbic acid (vitamin C) 250 mg tablet 250 mg PO DAILY medroxyprogesterone 10 mg tablet 10 mg PO BID Qty: 60 0RF ferrous sulfate 324 mg (65 mg iron) tablet,delayed release (DR/EC) 324 mg PO Q OTHER DAY Qty: 30 2RF citalopram 20 mg tablet 10 mg PO DAILY Allergy and Congestion Relief 10-240 mg tablet extended release 24 hr 1 tab PO DAILY Patient Comments: TAKE ONE TABLET BY MOUTH ONCE DAILY esomeprazole magnesium 40 mg capsule,delayed release(DR/EC) 40 mg PO DAILY Patient Comments: TAKE ONE CAPSULE BY MOUTH EVERY DAY Referrals Follow up/Referrals: Leonel Joyner MD [Primary Care Provider] - See instructions Kory Dickens MD [Staff Physician] - See instructions Activity Restrictions/Add. Instructions Additional Instructions/Restrictions: Call your family doctor to establish care for this visit to the emergency department and schedule follow-up within 48 hours to ensure improvement. If you have any worsening of your condition or any other concerning signs or symptoms, return to the emergency department or your primary care doctor for further evaluation. Cardiology referral placed, follow-up with family doctor and cardiology in order to further characterize symptoms. Clinical Impressions Clinical Impression: Shortness of breath Chest pain Qualifiers: Chest pain type: unspecified Qualified Code(s): R07.9 - Chest pain, unspecified Discharge ED Provider: Raheem Martin General Adult HPI General Chief complaint: Chest Pain Stated complaint: CP Time Seen by Provider: 07/15/23 15:54 Mode of Arrival: Wheelchair Source of Information: Patient Limitations: No Limitations Description of Symptoms (Recalled from ER Triage Doc. by RN): pt presents to ed c/o center chest pain. pt reports a past hx of bilateral PE's. 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 History of Present Illness HPI narrative: Is a 52-year-old female with recent history of saddle pulmonary embolus diagnosis, currently on therapeutic Eliquis, vaginal bleeding presenting with chest pressure. Patient states that she has had chest pressure develop over the past couple of weeks. Nothing in particular makes it better or worse, but just prior to arrival, patient states that she had a chest pressure that was worse than usual, substernal, radiated throughout the precordium and intermittently to her back, not associated with vomiting, diaphoresis, syncope, neurologic deficits, or worsening shortness of breath. No fevers or chills, abdominal pain, dysuria hematuria, diarrhea or constipation, trauma, medication noncompliance, cough, or any other concerns. Pain is only mild on my evaluation, not currently radiating and better than it was initially just prior to arrival. Given patient having vaginal bleeding secondary to fibroid and following with gynecology, as well as being followed with hematology for hematologic work-up cardiology, came to the ER for further evaluation given complex comorbidities. Related Data Home Medications Medication Instructions Recorded Confirmed loratadine-pseudoephedrine ER 10 1 tab PO DAILY . 01/03/23 06/23/23 mg-240 mg tablet,extended [id number] (Allergy and Congestion Relief) esomeprazole magnesium 40 mg 40 mg PO DAILY gerd 03/01/23 06/23/23 capsule,delayed release apixaban 5 mg tablet (Eliquis) 5 mg PO BID 05/29/23 06/23/23 ascorbic acid (vitamin C) 250 mg 250 mg PO DAILY 05/29/23 06/23/23 tablet azelastine-fluticasone 137 mcg-50 1 spray intranasal BID 05/29/23 06/23/23 mcg/spray nasal spray citalopram 20 mg tablet 10 mg PO MARCELLUS
[2023-07-15 16:41] LABS: Activated Partial Thrombo Time 30.5 seconds (22.8-30.6)
[2023-07-15 16:43] LABS: NT Pro Brain Natriuretic Pep. 54.8 pg/mL (0-125)
[2023-07-15 16:44] LABS: Troponin I < 0.01 ng/ml (0.00-0.034)
[2023-07-15 16:48] LABS: T4 (Thyroxine) 13.4 ug/dl (5.53-11.0)
[2023-07-15 17:02] LABS: Thyroid Stimulating Hormone 1.92 uIU/mL (0.465-4.68)
--- NOTE | 2023-07-15 19:31 | PC.NURSE ---
rounded on pt. pt states to be feeling better awaiting discharge.
[2023-07-15 20:18] LABS: Troponin I < 0.01 ng/ml (0.00-0.034)
== END 2023-07-15 19:37 | disposition home or self-care (01) ==
PROVIDERS: Emergency Provider Emergency Medicine; PCP Family Medicine
DX: R07.9 Chest pain, unspecified (principal); R06.02 Shortness of breath; Z86.711 Personal history of pulmonary embolism; Z79.01 Long term (current) use of anticoagulants
CPT/HCPCS: 36415; 71045; 80053; 82803; 83880; 84436; 84443; 84484; 85025; 85610; 85730; 93005; 96360; 99285

== ENCOUNTER → 2023-07-29 10:48 | Outpatient (CLI) | payer BC, SELFPAY | PROVIDERS: PCP Family Medicine; Visit Provider Internal Medicine | DX: Z01.818 Encounter for other preprocedural examination (principal); R06.02 Shortness of breath; D25.9 Leiomyoma of uterus, unspecified; I26.99 Other pulmonary embolism without acute cor pulmonale; N92.0 Excessive and frequent menstruation with regular cycle | CPT/HCPCS: 93225 ==

== ENCOUNTER → 2023-08-01 06:14 | Outpatient (CLI) | payer BC, SELFPAY ==
--- NOTE | 2023-08-01 06:46 | NM_ITS ---
APPROVED REPORT Exam: Nuclear Stress Test Indication: soa..palpitations..pre-op Patient Location: Outpatient Stress Tech: Paola Chamberlain MS Tech:ARIA Rich RT(R)(N) Ht: 5 ft 4 in Wt: 187 lbs Bra Size: 40dd HR: 85 bpm BP: 145/78 mmHg BSA: 1.90 m2 Rhythm: NSR TID: 1.17 BMI: 32.0 History: soa..palpitations..pre-op Procedure: Patient exercised on Walter protocol 5:01 minutes and sec, resting heart rate 85 bpm, resting blood pressure 145/78 mmHg, with exercise maximum heart rate achived was 155 bpm which is 92 % of the maximum predicted heart rate and blood pressure was 182/76 mmHg. Test was stopped due to soa. Patient denied any complaint of chest pain. Patient has poor exercise capacity, achieved 4.6 METs of workload on treadmill, the blood pressure response to exercise was normal. Cardiac Stress and Resting SPECT Images: Cardiac Stress and Resting SPECT images were obtained using technetium 99m Myoview 31.7 mCi stress and 10.31 mCi at rest. Raw imaging demonstrates significant soft tissue overlap with the cardiac borders. There is also significant GI radiotracer uptake in close proximity to the inferior border of the LV wall. This may affect the diagnostic interpretation of the study findings. Resting and stress imaging in both supine and prone positions demonstrate a medium sized, mild, fixed perfusion defect in the anterior lateral LV scales. These findings may suggest soft tissue attenuation, but true perfusion defects cannot be ruled out. Gated imaging demonstrates normal global and regional LV systolic function. LVEF is calculated at 58%. Conclusion: Raw imaging demonstrates significant soft tissue overlap with the cardiac borders. There is also significant GI radiotracer uptake in close proximity to the inferior border of the LV wall. This may affect the diagnostic interpretation of the study findings. Medium sized, mild, fixed perfusion defect in the anterior lateral LV scales. These findings may suggest soft tissue attenuation, but true perfusion defects cannot be ruled out. Gated imaging demonstrates normal global and regional LV systolic function. LVEF is calculated at 58%. Due to significant artifact and soft tissue attenuation, this study is suboptimal. If clinically indicated, alternative diagnostic modalities (eg. CCTA) are recommended for further evaluation. Electronically signed by : Nina Woody, 08/13/2023 00:18:40
--- NOTE | 2023-08-01 08:21 | CA_ITS ---
APPROVED REPORT EXAM: Comprehensive 2D, Doppler, and color-flow Echocardiogram Furnace Attendant: Deja Whatley, RT(R) Ht: 5 ft 4 in Wt: 188lbs BSA: 1.91 BP: 134/75 mmHg Indications: soa, PE (05/17/23), palpitations 2D Dimensions LVOT 1.90 cm (M/F) 1.5-2.5 LVEF ([place]'s) 54.70 % F: 54 - 74 LV Volume 76.40 mL F: 46 - 106 LV Volume Index 40.00 mL/m2 F: 29 - 61 LA Volume 34.30 mL LA Volume Index 17.96 mL/m2 (M/F) 16-34 M-Mode Dimensions RVDd 2.62 cm (0.9-2.6) LA Diam 3.87 cm (1.9-4.0) LVDd 4.79 cm (3.5-5.7) Ao Diam 2.66 cm (2.0-3.7) LVDs 3.22 cm (3.5-5.7) IVSd 0.72 cm (0.6-1.1) PWd 0.72 cm (0.6-1.1) EF (Teich) 61.10% FS 32.80% EDV (Teich) 107.00 mL TAPSE 2.25 (<1.7) ESV (Teich) 41.60 mL LV Diastology E Decel Time 173.00 (160-240 msec) E/A Ratio 1.0 MED E' 14.20 (< 7 cm/sec) E'/MED E' Ratio 5.71 (>14) LAT E' 12.60 (<10 cm/sec) E/LAT E' Ratio 6.44 (>14) Mitral Valve MV E Max Anshu. 81.00 (40-130 cm/s) MV A Velocity 78.00 (40-130 cm/s) E/A Ratio 1.04 MV Decel. Time 173.00 (160-240 ms) MV PHT 51.00 ms Tricuspid Valve TR P. Velocity 281.00 cm/s RAP Estimate 10.00 mmHg RVSP 41.50 mmHg Left Ventricle The left ventricle is normal size. The left ventricular systolic function is normal. The left ventricular ejection fraction is within the normal range. There is increased LV wall thickness. There is normal LV segmental wall motion. The left ventricular diastolic function is normal. LVEF is 55% Right Ventricle The right ventricle is normal size. The right ventricular systolic function is normal. Atria The left atrium size is normal. The right atrium size is normal. There is no Doppler evidence of interatrial shunt. Aortic Valve The aortic valve is mildly thickened. There is no aortic valvular stenosis. No aortic regurgitation is present. Mitral Valve The mitral valve leaflets are mildly thickened. No evidence of mitral valve stenosis. Mild mitral regurgitation. The MR jet is eccentric and posteriorly directed. Tricuspid Valve The tricuspid valve leaflets are thin and pliable. Trace tricuspid regurgitation. There is insufficient TR jet to estimate RVSP. Pulmonic Valve The pulmonary valve is normal in structure. Trace pulmonic regurgitation. Great Vessels The aortic root is normal in size. The ascending aorta is normal in size. IVC is normal in size and collapses >50% with inspiration. Pericardium There is no pericardial effusion. Other Information Study Quality: Fair Conclusion Normal biventricular systolic function. No significant valvular disease. Electronically signed by : Nina Woody, 08/05/2023 23:03:30
--- NOTE | 2023-08-01 08:22 | CA_ITS ---
APPROVED REPORT Exam: Exercise Treadmill Technologist: Paola Gibbons, Ht: 5 ft 7 in Wt: 188 lbs BSA: 1.97 m2 HR: 77 bpm BP: 142/79 mmHg Rhythm: NSR Medical History Medications: Citalopram,,,,, Rufina,,,,, Vit C,,,,, ElIQUIS,,,,, MeDroxyprogesterone,,,,, Macrobid,,,,, Esomeprazole magnesium,,,,, Ferrex,,,,, Stress Test Details Test: Walter HR Resting HR: 85 bpm Max Heart Rate (APMHR): 168 bpm Max HR Achieved: 155 bpm Target HR (85% APMHR): 143 bpm % of APMHR: 92 Recovery HR: 89 bpm HR response to stress: Normal HR response to stress BP Resting BP: 145.0/78.0 mmHg Max BP: 182.0/76.0 mmHg Recovery BP: 150.0/79.0 mmHg BP response to stress: Normal blood pressure response to stress. ECG Resting ECG: NSR Stress ECG: < 0.[address] depression Arrhythmia: None Recovery ECG: Return to baseline within 1 minute of recovery Recovery Arrhythmia: None Clinical Exercise duration: 05:01 min Highest Stage Achieved: Exercise capacity: 4.6 METs Overall Exercise Capacity for Age: Poor Stress ECG Conclusion The patient was able to exercise for a total of 5:01 on Walter Protocol. Stage 1 was held to completion. She achieved a total of 4.6 METS. She has normal HR and BP response to exercise. Max HR: 155 % of PM: 92% Max BP: 182/76 METs: 4.6 Test stopped due to: SOA Symptoms: Dyspnea. No CP. Arrhythmias/Ectopy: None ST-T 0.[address] depression Conclusion: Poor exercise capacity Equivocal EKG changes at peak stress. Myoview images reported separately. Test Summary REST . . . . . . . Sitting REST . . . . . . . Standing REST 08:56 0.0 0.0 85 . 145/ 78 . . Stage 1 01:00 10.0 1.7 115 . . . . Stage 1 02:00 10.0 1.7 136 . . . . Stage 1 . . . . . . . Stage held Stage 1 03:00 10.0 1.7 145 . 166/ 70 . . Stage 1 04:00 10.0 1.7 152 . 166/ 70 . . Stage 1 05:00 10.0 1.7 155 . 166/ 70 . . Stage 1 . . . . . . . Stage resumed Stage 1 05:01 10.0 1.7 155 . 166/ 70 . Stop exercise at 05:01 RECOVERY 01:00 0.0 0.0 136 . 182/ 76 . . RECOVERY 02:00 0.0 0.0 115 . 182/ 76 . . RECOVERY 03:00 0.0 0.0 111 . 136/ 82 . . RECOVERY 04:00 0.0 0.0 92 . 159/ 81 . . RECOVERY 05:00 0.0 0.0 89 . 150/ 79 . . RECOVERY 05:21 0.0 0.0 87 . 150/ 79 . . Electronically signed by : Nina Woody, 08/13/2023 00:13:03
== END ==
PROVIDERS: PCP Family Medicine; Visit Provider Internal Medicine
DX: Z01.818 Encounter for other preprocedural examination (principal); R06.02 Shortness of breath; I26.99 Other pulmonary embolism without acute cor pulmonale; D25.9 Leiomyoma of uterus, unspecified; N92.0 Excessive and frequent menstruation with regular cycle
CPT/HCPCS: 78452; 93017; 93306; A9502

== ENCOUNTER → 2023-09-01 07:01 | Outpatient (CLI) | payer BC, SELFPAY ==
[2023-09-01] VITALS (12 sets, daily range): BP systolic 101–148; BP diastolic 63–75; PULSE 62–85; RESP 18; TEMP 36.5–36.9; O2SAT 99–100; BMI 32.5
--- NOTE | 2023-09-01 07:02 | CT_ITS ---
APPROVED REPORT [facility] Director: CLINICAL INDICATION Chest Pain TECHNIQUE Image Acquisition: A 128 slice MDCT scanner (Allihuba View) was used for data acquisition. A noncontrast coronary calcium scan was performed. A CT attenuation threshold of 130 Hounsfield units (HU) was used for the detection of calcium in contiguous voxels of 1 sq mm in area to be counted as individual lesions. Bolus tracking in the ascending aorta with a threshold of 180 HU was performed. Immediately afterwards, ECG synchronized cardiac CT was then performed from the cardiac base to apex using retrospective gating with ECG tube current modulation. A total of 85 mL of Isovue 370 mg/mL contrast medium was administered at 5 mL/sec followed by a saline flush using a biphasic injection protocol. A tube voltage of 120 KVp was used. The patient received the following medications prior to the cardiac CT. 100 mg of oral metoprolol 20 mg of intravenous metoprolol. 0.8 mg of sublingual nitroglycerin. The average heart rate at the time of acquisition was 69 bpm and regular. Image Reconstruction Transaxial images were reconstructed at 0.67 mm slide thickness. Data was reviewed interactively on an advanced workstation capable of 2 and 3-dimensional displays in all conventional reconstruction formats, including multiplanar reformations, maximum intensity projections, curved multiplanar reformations, and volume rendered reconstructions. When applicable, selected routine images describing the relevant coronary anatomy and pathology were saved and sent to PACS. Complications None Technical Quality Overall image quality was good. Coronary artery opacification was adequate. Total DLP (Dose-Length Product) is 2358.4 mGy-cm. The reported value represents the total of one or more individual components during the CT acquisition of this date and at this time, and as such, the same value may appear in more than one CT report depending on the interpreting/reporting physicians. COMPARISON None FINDINGS CT Coronary Calcium Scoring LMA (Left Main Artery) = 0 LAD (Left Anterior Descending) = 0 LCX (Left Coronary Circumflex) = 0 RCA (Right Coronary Artery) = 0 Total Calcium Score = 0 using the AJ-130 method. The interpretation of the calcium heart score is based on the following continuum*: 0 = no calcified plaque detected (risk of coronary artery disease is very low ??? less than 5%) 1-10 = calcium detected in extremely minimal levels (risk of coronary diseases is still low ??? less than 10%) 11-100 = mild levels of plaque detected with certainty (mild or minimal narrowing of heart arteries is likely) 101-400 = definite,at least moderate levels of plaque detected (relatively high risk of a heart attack within 3-5 years) >401-999 = extensive levels of plaque detected (high risk of heart attack, high levels of vascular disease are present, high likelihood of at least one significant coronary narrowing) *The calcium heart score quantifies the burden of coronary calcification/plaque in the coronary arteries. The calcium heart score is not able to evaluate the presence or burden of non-calcified (i.e. soft) plaque. There is no identifiable calcification in the aortic valve, mitral annulus or mitral valve, pericardium, or myocardium. Coronary CT Angiography Coronaries have normal origin and proximal course. The coronary arterial system is right dominant. Note: Stenosis is reported as maximum percentage diameter stenosis. Stenosis grading is reported using the following scheme: Quantitative Stenosis Grading: Left Main (LM): The left main originates normally from the left sinus of Valsalva. The LM bifurcates into the left anterior descending artery and left circumflex artery.
[2023-09-01 08:47] LABS: Chloride 106 mmol/L (98-107)
[2023-09-01 08:48] LABS: Potassium 3.9 mmoL/L (3.5-5.1); Sodium 138 mmol/L (136-145)
[2023-09-01 08:51] LABS: Anion Gap 12.9 mEq/L (5-15); Blood Urea Nitrogen 9 mg/dl (7-17); Calcium 8.6 mg/dl (8.4-10.2); Carbon Dioxide 23 mmol/L (22.0-30.0); Creatinine Clearance Estimated 112 mL/min (50-200); Estimated Glomerular Filt Rate 75 ml/min (>60); GFR (African American) 91 ML/MIN (>60); Glucose 113 mg/dl (74-100)
[2023-09-01 09:48] LABS: HCG Qualitative, Serum Negative (Negative)
--- NOTE | 2023-09-01 10:31 | PC.NURSE ---
Test complete, VSS, pt without c/o
--- NOTE | 2023-09-01 10:33 | PC.NURSE ---
Pt brought to post-op for recovery, report given to Gianluca Bradshaw RN.
== END ==
PROVIDERS: PCP Family Medicine; Visit Provider Nurse Practitioner Family
DX: Z01.818 Encounter for other preprocedural examination (principal); R06.02 Shortness of breath; D25.9 Leiomyoma of uterus, unspecified; I26.99 Other pulmonary embolism without acute cor pulmonale; N92.0 Excessive and frequent menstruation with regular cycle
CPT/HCPCS: 75574; 80048; 84703; Q9967

== ENCOUNTER → 2023-10-02 10:27 | Outpatient (CLI) | payer BC, SELFPAY ==
[2023-10-02 10:59] LABS: Basophils # 0.1 K/mm3 (0-0.2); Basophils % 0.8 % (0.1-2.0); Eosinophils # 0.3 K/mm3 (0.0-0.4); Eosinophils % 2.7 % (0.1-12.0); Hematocrit 36.9 % (37.0-47.0); Hemoglobin 11.2 g/dL (12.2-16.2); Lymphocytes % 41.8 % (10-50); Mean Corpuscular HGB Conc 30.4 g/dL (31.8-35.4); Mean Corpuscular Volume 65.8 fl (81-99); Mean Platelet Volume 6.8 fl (7.4-10.4); Monocytes # 0.7 K/mm3 (0.1-1.0); Monocytes % 7.3 % (1.7-9.3); Neutrophils # 4.5 K/mm3 (1.8-7.8); Neutrophils % 47.3 % (37.0-80.0); Platelet Count 673 K/mm3 (142-424); Red Cell Distribution Width 21.3 % (11.5-17.5); White Blood Count 9.5 K/mm3 (4.8-10.8)
[2023-10-02 11:39] LABS: Alanine Aminotransferase 16 U/L (12-78); Albumin Level 4.3 g/dl (3.5-5.0); Albumin/Globulin Ratio 1.3 (1.1-1.8); Alkaline Phosphatase 53 U/L (38-126); Anion Gap 14.6 mEq/L (5-15); Aspartate Amino Transferase 23 U/L (14-36); Bilirubin,Total 0.4 mg/dl (0.2-1.3); Blood Urea Nitrogen 7 mg/dl (7-17); Calcium 9.2 mg/dl (8.4-10.2); Carbon Dioxide 22 mmol/L (22.0-30.0); Chloride 105 mmol/L (98-107); Estimated Glomerular Filt Rate 88 ml/min (>60); GFR (African American) 106 ML/MIN (>60); Globulin 3.4 g/dL (1.3-3.2); Glucose 87 mg/dl (74-100); Potassium 4.6 mmoL/L (3.5-5.1); Sodium 137 mmol/L (136-145); Total Protein,Serum 7.7 g/dl (6.3-8.2)
[2023-10-02 11:54] LABS: HCG,Quantitative < 2 mIU/ml (0-5.42)
== END ==
PROVIDERS: PCP Family Medicine; Visit Provider Obstetrics & Gynecology
DX: N93.9 Abnormal uterine and vaginal bleeding, unspecified (principal)
CPT/HCPCS: 36415; 80053; 84702; 85025

== ENCOUNTER 2023-10-09 07:25 | Inpatient (IN) | payer BC, SELFPAY ==
[2023-10-07 13:57] VITALS: BMI 32.2
[2023-10-09] VITALS (24 sets, daily range): BP systolic 123–158; BP diastolic 50–91; PULSE 67–113; RESP 10–20; TEMP 36.6–37.1; O2SAT 92–100; BMI 31.1
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
--- NOTE | 2023-10-09 07:44 | HMH.PHAINT1 ---
Pharmacy Intervention Comments: MEDICATION RECONCILIATION COMPLETED ON PATIENT USING EXTERNAL FILL HISTORY FROM PHARMACY. -COLTON BOCANEGRA, JOVANYD
--- NOTE | 2023-10-09 08:13 | EXP.ANES.CKL ---
[facility] Disclaimer: The information contained in this section may have been updated after the patient was seen, as this information can be updated by other users. Medical History Abnormal uterine bleeding Fibroid, uterine History of pulmonary embolism Menorrhagia Surgical History H/O lumpectomy H/O splenectomy H/O tubal ligation History of cholecystectomy Family History Other Family history of aortic valve disorder Family history of cancer Family history of diabetes mellitus Social History (Updated 10/09/23 @ 06:29 by Rhea Garvey RN) Smoking Status: Never smoker alcohol intake: never counseling provided: provider counseling substance use type: denies use current occupational status: employed Travel in the last 8 weeks: None household members: none [facility] Anesthesia Checklist Patient Identification Patient Identification: Verbal (Name & ) Structural Data Admitted From: Home Planned Operative Procedure/s: jeri,bsfelix Consent for Planned Operative Procedure(s) Verified: Yes NPO Status Verified Time NPO: 00:00 Additional verifications Anesthesia Reactions: No Hx Blood Transfusions: Yes Blood Transfusion Reaction: No Airway Assessment Mallampati Score:: Class II C-Spine Mobility Assessed: Yes TMJ Mobility Assessed: Yes Dentition: Dentures-good fit Neurological Assessment Level of Consciousness: Awake, Alert and Appropriate Anesthesia Plan Anesthesia Risk discussed: Yes Anesthesia Plan: Verified ASA Class: II Anesthesia Type: General
--- NOTE | 2023-10-09 09:56 | EXP.ANES.I ---
[facility] Anesthesia Record Part I Anesthesia Record I Intake, IV Amount: 2,000 Hydration: Adequate Estimated blood loss (mL): 700 Urine output (mL): 150 Blood Pressure: 152/86 SaO2: 96 Pulse Rate: 94 Airway Patency: Patent Respiratory Rate: 12 Temperature: 97.8 F Patient is:: Awake and Stable Stable to PACU at:: 09:52
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
[2023-10-09 13:46] LABS: Microscopic,Cath URINE MICROSCOPIC (MICROSCOPIC)
[2023-10-09 13:48] LABS: Appearance,Urine/Cath CLEAR (Clear); Bilirubin,Cath Negative (Negative); Blood, Urine/Cath 1+ (Negative); Color,Urine/Cath YELLOW (Yellow); Glucose,Urine/Cath (UA) Negative (Negative); Ketones,Urine/Cath TRACE (Negative); Leukocyte Esterase,Cath Negative (Negative); Nitrate,Cath Negative (Negative); Protein,Urine/Cath Negative (Negative)
--- NOTE | 2023-10-09 14:05 | PC.NURSE ---
bowl sounds still hypoactive in all for quadrants.
--- NOTE | 2023-10-09 16:00 | PC.NURSE ---
ASSESSMENT COMPLETED AT THIS TIME. LUNGS CTA- OXYGEN DECREASED TO 1L AT THIS TIME. CABRERA DRAINING CEASAR URINE. SCUDS IN PLACE. BOWEL SOUNDS REMAIN HYPOACTIVE IN LOWER QUADS, MORE ACTIVE IN UPPER QUADS. PT IS BELCHING. NOT PASSING GAS YET. GUM GIVEN TO CHEW. PT. HAS BEEN MEDICATED PER MAR FOR PAIN TODAY. VAGINAL BLEEDING HAS BEEN SMALL AMOUNT OF DARK RED. MIDLINE INCISION NOTED- NO DRAINAGE NOTED. ABDOMEN TENDER. FAMILY AT BEDSIDE. NO NEEDS AT THIS TIME. PT IS WANTING TO EAR FOOD, WILL ADVANCE DIET SLOWLY TO FULL LIQUIDS.
--- NOTE | 2023-10-09 18:06 | PC.NURSE ---
DR MOSQUERA AT BEDSIDE.
--- NOTE | 2023-10-09 18:20 | PC.NURSE ---
PERICARE DONE AT THIS TIME, CHUX CHANGED AT THIS TIME. SMALL DARK RED BLOOD NOTED. PT SITTING UP IN BED. VISITORS AT BEDSIDE. INCENTIVE EARNEST. AT BEDSIDE. NO OTHER NEEDS.
[2023-10-10] VITALS (8 sets, daily range): BP systolic 114–147; BP diastolic 44–62; PULSE 67–89; RESP 17–20; TEMP 36.4–37.1; O2SAT 94–100
[2023-10-10 06:51] LABS: Basophils % 0.2 % (0.1-2.0); Eosinophils # 0.2 K/mm3 (0.0-0.4); Hematocrit 28.9 % (37.0-47.0); Hemoglobin 8.8 g/dL (12.2-16.2); Lymphocytes # 2.6 K/mm3 (0.7-4.5); Lymphocytes % 13.2 % (10-50); Mean Corpuscular HGB Conc 30.6 g/dL (31.8-35.4); Mean Corpuscular Hemoglobin 20.4 pg (27.0-31.2); Mean Corpuscular Volume 66.8 fl (81-99); Mean Platelet Volume 7.5 fl (7.4-10.4); Monocytes # 1.5 K/mm3 (0.1-1.0); Monocytes % 7.5 % (1.7-9.3); Neutrophils # 15.5 K/mm3 (1.8-7.8); Neutrophils % 78.1 % (37.0-80.0); Platelet Count 548 K/mm3 (142-424); Red Blood Count 4.32 M/mm3 (4.20-5.40); Red Cell Distribution Width 21.1 % (11.5-17.5); White Blood Count 19.9 K/mm3 (4.8-10.8)
[2023-10-10 06:53] LABS: MANUAL DIFFERENTIAL MANUAL DIFFERENTIAL (MANUAL DIFF)
[2023-10-10 07:01] LABS: Lymphocytes % 14 % (10-50); Monocytes % 4 % (2-9); Neutrophils % 82 % (42-76); Total Cells Counted 100
[2023-10-10 07:02] LABS: Microcytosis 1+; Platelet Estimate Slight Increase
[2023-10-10 07:03] LABS: Anisocytosis 1+; Hypochromasia 1+
[2023-10-10 07:04] LABS: Acanthocytes 1+
[2023-10-10 07:13] LABS: Blood Urea Nitrogen 7 mg/dl (7-17); Calcium 8.6 mg/dl (8.4-10.2); Carbon Dioxide 23 mmol/L (22.0-30.0); Chloride 108 mmol/L (98-107); Creatinine Clearance Estimated 123 mL/min (50-200); Estimated Glomerular Filt Rate 88 ml/min (>60); GFR (African American) 106 ML/MIN (>60); Glucose 122 mg/dl (74-100); Sodium 138 mmol/L (136-145)
--- NOTE | 2023-10-10 13:55 | EXP.ACUTE.PN ---
Subjective *Date: 10/10/23 *Time: 13:55 Interval history: POD # 1 s/p IMER, BSO Kimani is resting comfortably in bed this morning. Pain was not well controlled over night. She admits she feels better this morning. Rodriguez catheter in place, draining clear urine. She has not passed flatus but emits to eructation. Tolerating full liquids. No fever/chills, chest pain or shortness of breath. No nausea vomiting. Denies lightheadedness/dizziness. Medical Exam Vital signs and Labs for Last 24 Hours: Vital Signs Temp Pulse Resp BP Pulse Ox O2 Del Method O2 Flow Rate 10/10/23 13:00 Room Air 10/10/23 12:00 97.6 F 89 20 140/60 100 Room Air 10/10/23 11:00 Room Air 10/10/23 10:00 Room Air 10/10/23 09:00 Room Air 10/10/23 08:00 97.6 F 85 20 116/44 L 96 Room Air 10/10/23 08:32 96 Room Air 10/10/23 07:00 Room Air 10/10/23 06:48 98.5 F 82 18 114/62 94 L Room Air 10/10/23 06:00 Room Air 10/10/23 05:00 Room Air 10/10/23 04:00 Room Air 10/10/23 03:00 Room Air 10/10/23 03:00 98.8 F 67 18 126/60 97 Room Air 10/10/23 02:00 Room Air 10/10/23 01:00 Room Air 10/10/23 00:00 Room Air 10/09/23 23:00 97.8 F 85 18 137/61 95 Room Air 10/09/23 23:00 Room Air 10/09/23 22:00 Room Air 10/09/23 19:27 98.7 F 84 19 140/72 99 Room Air 10/09/23 21:00 Room Air 10/09/23 19:00 Room Air 10/09/23 20:00 95 Room Air 10/09/23 17:30 Nasal Cannula 1 10/09/23 18:00 98.4 F 67 20 138/81 99 Room Air 10/09/23 17:00 97 H 19 154/81 H 97 Room Air 10/09/23 16:00 Nasal Cannula 1 10/09/23 16:00 98.1 F 71 19 142/67 H 100 Room Air 10/09/23 18:32 Room Air 10/09/23 15:00 98.0 F 71 16 150/66 H 96 Room Air 10/09/23 15:00 Nasal Cannula 2 10/09/23 14:00 Nasal Cannula 2 10/09/23 14:00 98.1 F 98 H 18 138/55 L 94 L Nasal Cannula 2 Intake and Output 10/09/23 10/10/23 10/10/23 23:59 07:59 15:59 Intake Total 2169 / 2169 Output Total 650 / 950 1500 / 2200 700 / 2200 Balance -650 / 1419 669 / -31 -700 / -31 Intake: Intake, Total IV Amount 2169 / 2169 Cefazolin Sodium 1 gm In 0.9 % 100 / 100 Sodium Chloride 50 ml @ 100 mls /hr IV Q8H [facility] Rx#:[id number] Lactated Ringers 1000ML 1,000 2069 / 2069 ml @ 125 mls/hr IV .Q8H [facility] Rx# :[id number] Output: Output, Urine Amount 250 / 550 800 / 1500 700 / 1500 Output, Urine Amount (Catheter) 400 / 400 700 / 700 Rodriguez 400 / 400 700 / 700 Other: Number of Unmeasured Voids 1 Laboratory Results - last 24 hr 10/09/23 07:35: Urine RBC 3-5, Urine WBC None, Ur Squamous Epith Cells None 10/10/23 06:37: WBC 19.9 H, RBC 4.32, Hgb 8.8 L, Hct 28.9 L, MCV 66.8 L, MCH 20.4 L, MCHC 30.6 L, RDW 21.1 H, Plt Count 548 H, MPV 7.5, Neut % (Auto) 78.1, Lymph % (Auto) 13.2, [place] % (Auto) 7.5, Eos % (Auto) 1.0, Baso % (Auto) 0.2, Neut # (Auto) 15.5 H, Lymph # (Auto) 2.6, [place] # (Auto) 1.5 H, Eos # (Auto) 0.2, Baso # (Auto) 0.0, Total Counted 100, Neutrophils % (Manual) 82 H, Lymphocytes % (Manual) 14, Monocytes % (Manual) 4, Platelet Estimate Slight increase, Hypochromasia 1+, Anisocytosis 1+, Microcytosis 1+, Acanthocytes (Spur) 1+, Sodium 138, Potassium 4.0, Chloride 108 H, Carbon Dioxide 23, Anion Gap 11.0, BUN 7, Creatinine 0.70, Estimated Creat Clear 123, Estimated GFR 88, Est GFR ( Amer) 106, Glucose 122 H, Calcium 8.6 I & O for Labs for Last 24 Hours: Intake & Output 10/07/23 10/08/23 10/09/23 10/10/23 23:59 23:59 23:59 23:59 Intake Total 2369 / 2369 2169 / 2169 Output Total 950 / 950 2200 / 2200 Balance 1419 / 1419 -31 / -31 Weight 188 lb 182 lb 6.92 oz Head: Present atraumatic and normocephalic ENT: Present normal exam Neck: Present full ROM Respiratory: Present CTA bilaterally and normal respiratory effort Cardiac: Present Reg Rate and Rhythm GI: Present
--- NOTE | 2023-10-10 19:01 | PC.NURSE ---
REPORT GIVEN TO Roc BOJORQUEZ RN
[2023-10-11 05:23] VITALS: BP 150/70; PULSE 82; RESP 19; TEMP 36.6; O2SAT 96
[2023-10-11 05:24] VITALS: O2SAT 96
[2023-10-11 08:13] LABS: Basophils # 0.1 K/mm3 (0-0.2); Basophils % 0.7 % (0.1-2.0); Eosinophils # 0.1 K/mm3 (0.0-0.4); Eosinophils % 0.7 % (0.1-12.0); Hematocrit 27.4 % (37.0-47.0); Hemoglobin 8.3 g/dL (12.2-16.2); Lymphocytes # 6.4 K/mm3 (0.7-4.5); Lymphocytes % 42.3 % (10-50); Mean Corpuscular HGB Conc 30.2 g/dL (31.8-35.4); Mean Corpuscular Hemoglobin 19.9 pg (27.0-31.2); Mean Platelet Volume 7.7 fl (7.4-10.4); Monocytes # 1.1 K/mm3 (0.1-1.0); Monocytes % 7.3 % (1.7-9.3); Neutrophils # 7.4 K/mm3 (1.8-7.8); Platelet Count 640 K/mm3 (142-424); Red Blood Count 4.16 M/mm3 (4.20-5.40); Red Cell Distribution Width 21.2 % (11.5-17.5); White Blood Count 15.2 K/mm3 (4.8-10.8)
[2023-10-11 08:19] LABS: MANUAL DIFFERENTIAL MANUAL DIFFERENTIAL (MANUAL DIFF)
[2023-10-11 08:45] VITALS: BP 128/71; PULSE 81; RESP 12; TEMP 36.6; O2SAT 96
[2023-10-11 09:55] VITALS: O2SAT 96
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
[2023-10-11 10:36] LABS: Lymphocytes % 46 % (10-50); Monocytes % 9 % (2-9); Neutrophils % 45 % (42-76); Platelet Estimate Moderate Increase; Total Cells Counted 100
[2023-10-11 10:37] LABS: Microcytosis 1+
[2023-10-11 10:38] LABS: Anisocytosis 2+; Hypochromasia 1+; Target Cells 2+
[2023-10-11 10:39] LABS: Spherocytes 1+
--- NOTE | 2023-10-11 12:05 | PC.NURSE ---
Discharge education provided, questions encouraged and answered. Pt. v/u.
--- NOTE | 2023-10-11 12:10 | PC.NURSE ---
Pt. left unit via wheelchair, accompanied by staff x1, and family member.
--- NOTE | 2023-10-13 07:21 | P.PNANES_ITS ---
[facility] Anesthesia Record Part II Anesthesia Record Part II Discharge Time: 10:42 Destination: Surgical Day Care (OP Surgery) PACU nurse assessment reviewed?: Yes Patient Condition:: Good Anesthesia Complications:: None Swallowing reflex intact?: Yes Airway Patency: Patent Cyanosis?: No Blood Pressure: 153/63 SaO2: 96 Respiratory Rate: 16 Pulse Rate: 74 Temperature: 97.2 F Mental Status: Alert & Oriented Pain level:: 4 Nausea and/or vomitting:: None Intake, IV Amount: 0 Hydration: Adequate
[2023-10-13 07:22] VITALS: BP 153/63; PULSE 74; RESP 16; TEMP 36.2; O2SAT 96
== END 2023-10-11 12:10 | disposition home or self-care (01) | DRG 743 ==
LOC: OB 10-10 00:18
PROVIDERS: Admitting Provider Obstetrics & Gynecology; PCP Family Medicine; Visit Provider Obstetrics & Gynecology
PROC: 0UT90ZZ Resection of Uterus, Open Approach (ICD-10-PCS; CPT 58150; principal; 2023-10-09 07:30)
DX: D25.9 Leiomyoma of uterus, unspecified (principal); Z86.711 Personal history of pulmonary embolism
CPT/HCPCS: 58150; 36415; 80048; 81001; 85007; 85025; 96374; J1756; J2405; J2710

== ENCOUNTER 2024-06-01 10:06 | Outpatient (CLI) | payer BC, SELFPAY ==
[2024-06-01 10:30] LABS: Basophils # 0.2 K/mm3 (0-0.2); Basophils % 1.7 % (0.1-2.0); Eosinophils # 0.3 K/mm3 (0.0-0.4); Eosinophils % 3.2 % (0.1-12.0); Hematocrit 35.4 % (37.0-47.0); Hemoglobin 10.4 g/dL (12.2-16.2); Lymphocytes # 3.6 K/mm3 (0.7-4.5); Lymphocytes % 42.3 % (10-50); Mean Corpuscular HGB Conc 29.3 g/dL (31.8-35.4); Mean Corpuscular Hemoglobin 19.4 pg (27.0-31.2); Mean Corpuscular Volume 66.3 fl (81-99); Mean Platelet Volume 7.1 fl (7.4-10.4); Monocytes # 0.6 K/mm3 (0.1-1.0); Monocytes % 7.5 % (1.7-9.3); Neutrophils # 3.9 K/mm3 (1.8-7.8); Neutrophils % 45.2 % (37.0-80.0); Platelet Count 736 K/mm3 (142-424); Red Blood Count 5.34 M/mm3 (4.20-5.40); White Blood Count 8.5 K/mm3 (4.8-10.8)
[2024-06-01 11:56] LABS: Alanine Aminotransferase 17 U/L (12-78); Albumin Level 3.9 g/dl (3.5-5.0); Albumin/Globulin Ratio 1.1 (1.1-1.8); Alkaline Phosphatase 76 U/L (38-126); Anion Gap 8.9 mEq/L (5-15); Aspartate Amino Transferase 27 U/L (14-36); Bilirubin,Total 0.4 mg/dl (0.2-1.3); Blood Urea Nitrogen 14 mg/dl (7-17); Calcium 9.7 mg/dl (8.4-10.2); Carbon Dioxide 28 mmol/L (22.0-30.0); Chloride 107 mmol/L (98-107); Chol/HDL Ratio 3.8 (1-3.5); Cholesterol 224 mg/dl (140-200); Estimated Glomerular Filt Rate 88 ml/min (>60); GFR (African American) 106 ML/MIN (>60); Globulin 3.6 g/dL (1.3-3.2); Glucose 94 mg/dl (74-100); HDL Cholesterol 59 mg/dl (40-60); Potassium 4.9 mmoL/L (3.5-5.1); Sodium 139 mmol/L (136-145); Total Protein,Serum 7.5 g/dl (6.3-8.2); Triglycerides 193 mg/dl (30-150); VLDL Cholesterol 39 mg/dL (0-40)
[2024-06-01 12:07] LABS: Direct LDL Cholesterol 95.27 mg/dL (100-129)
== END 2024-06-01 23:59 | disposition home or self-care (01) ==
LOC: LAB 10:07
PROVIDERS: PCP Family Medicine; Visit Provider Family Medicine
DX: R69 Illness, unspecified (principal)
CPT/HCPCS: 36415; 80053; 80061; 85025

== ENCOUNTER 2025-04-15 16:36 | Outpatient (CLI) | payer BC, SELFPAY ==
--- NOTE | 2025-04-15 16:39 | MM_ITS ---
PROCEDURE INFORMATION: Exam: MG Bilateral Screening 3D Mammography Exam date and time: 04/15/2025 4:44 PM Age: 54 years old Clinical indication: Screening examination TECHNIQUE: Imaging protocol: Bilateral Screening tomosynthesis and 2D mammography including computer-aided detection (CAD) when performed. COMPARISON: 1. MG DXBI MM Dig mamm BI DX w/CAD 02/11/2018 12:03 PM 2. MG DXBI MM Dig mamm BI DX w/CAD 01/13/2018 2:09 PM FINDINGS: MAMMOGRAPHY: Breast composition: There are scattered areas of fibroglandular density. Mass: No suspicious masses. Architectural distortion: None. Calcifications: No suspicious calcifications. Asymmetric density: None. Skin thickening: None. Axillary adenopathy: None. IMPRESSION: No mammographic evidence of malignancy. Annual screening is recommended unless otherwise clinically indicated. ASSESSMENT: BI-RADS Category 1: Negative.
== END 2025-04-15 23:59 | disposition home or self-care (01) ==
LOC: RAD 16:37
PROVIDERS: PCP Physician Assistant; Visit Provider Physician Assistant
DX: Z12.31 Encounter for screening mammogram for malignant neoplasm of breast (principal); R92.323 Mammographic fibroglandular density, bilateral breasts
CPT/HCPCS: 77063; 77067

== ENCOUNTER 2025-10-07 01:35 | Emergency (ER) | payer BC, SELFPAY ==
--- OUTSIDE RECORDS SUMMARY | 2013-08-04 05:45 | XMS_ITS | Continuity of Care Document ---
Author Organization [facility] Address [address] [place] [address] Phone Care Team Providers Care Substance Abuse Prevention Coordinator Name Role Phone Baltazar Shin MD Unavailable Unavailable Allergies, Adverse Reactions, Alerts Substance Reaction Status Criticality No Known allergies Medications Medication Instructions Dosage Effective Dates (start - stop) Status Comments LAMISIL (unknown strength) apply by topical route every day to the affected and surrounding areas of skin Not Available - Active CLARITIN-D 12 HOUR (unknown strength) take 1 tablet by oral route every 12 hours Not Available - Active Procedures Procedure Date OFFICE/OUTPATIENT VISIT, EST Visual Field Examination W I And R Exten ded Uni Or Bi OFFICE CONSULTATION Advance Directives Directive Yes / No Effective Date File Name Resuscitation Not Answered N/A N/A Life Support Not Answered N/A N/A Intubation Not Answered N/A N/A Antibiotics Not Answered N/A N/A IV Fluid Support Not Answered N/A N/A Tube Feed Not Answered N/A N/A Other Directive N/A N/A WARNING:The information contained in this section is historical and is provided for information only and does not constitute a legal document or any assurance that the information is still accurate. Please verify the information with the osorio of the legal document before using it for clinical purposes. Encounters Encounter Description Practice Location Reason(s) For Visit Diagnoses Date Provider Providers Copied on Encounter OFFICE/OUTPATI ENT VISIT, [facility] , [address], [place], [address], [place] tel:[phone] [facility] Golisa Baltazar. [address] [place], [place], [id number], . tel:[phone] Referring Provider: Tyler Goodman, [address] [facility] [address], [place], [address]. tel:[phone] OFFICE CONSULTATION [facility] , [address] [place], [address], tel:[phone] [facility] Aleida Baltazar. [address] [place], [place], [id number], . tel:[phone] Referring Provider: Tyler Goodman, [address] [facility] [address], [place], [address]. tel:[phone] Family History Family Member Type Diagnosis Age At Onset Grandmother (m) Problem (finding) HBP Multiple Problem (finding) Family history unknown Grandmother (m) Problem (finding) Retinal Disorders Multiple Problem (finding) Maternal history of mukesh betes mellitus Grandmother (m) Problem (finding) degenerative disorde r of macula Multiple Problem (finding) cataract Payers Payer name Insurance type Covered green party ID Monik carlson(s) [facility] [id number] Social History Type Description Quantity Date Captured Comments Alcohol Use Details 1 drink monthly Caffeine Use Details Unknown Tobacco Use Status No Information Smoking Status Never smoker Sex Male Chief Complaint And Reason For Visit No Information Reason For Referral Reason For Referral No Information History Of Present Illness Encounter Date Complaint History Of Prese nt Illness No Information Functional Status Date Functional Assessmen t No Information Instructions Date Instruction Additional Infor courtneyion - 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 reviwed mri at [facility] and rec repeat mri and if unchanged serial hvf. next hvf could be at dr. pastor in 4 months or here. 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 I reviewed the mri and all outside records, does not enhance, unlikely to be inflammation and do not think meningioma. suspect glioma/hamartoma given lack of enhancement. she will be presented at neuro-oncology tumor board within the next 2 weeks and I will call her. Related to See impression: general plan - Return in PRN Related to See i mpression: general plan - OPTIC Neuropathy- OPTIC Neuropathy - Educational materials provided:Primary Diagnosis. Related to See impression: general plan Assessments Type Assessment Date No Information Patient Care Teams Name Effective Dates (start - stop) Status Members No Information
--- OUTSIDE RECORDS SUMMARY | 2024-06-03 05:00 | XMS_ITS ---
Author Organization [facility] Address [address] [place] [id number] Care Team Providers Care Planetarium Sky Show Technician Name Role Phone Jackelin Joyner Primary Care Provider Godwin Hdez Unavailable [phone] Herminia Marin Unavailable [phone] Allergies No Known Allergies REASON FOR VISIT [...] W/U Status Risk Notes Problem Microcytic anemia (009249088) Microcytic anemia (D50.9) Active confirmed Problem Dyslipidemia (897421055) Dyslipidemia (E78.5) Active confirmed Problem Obese class I (152815506533605 ) BMI 33.0-33.9,adult (Z68.33) Active confirmed Vital Signs Blood pressure systolic 126 mm Hg 06/03/20 24 Blood pressure diastolic 80 mm Hg 024 Heart Rate 90 /min 06/03/2024 Height 64.50 in 06/03/2024 Weight 198.6 lbs 06/03/2024 BMI 33.56 kg/m2 06/03/2024 Encounters Encounter Location Date Provider Diagnosis [facility] [address] [facility] [address] [facility] [address] [place] [phone] 06/03/2024 Jackelin Joyner Microcytic anemia D5 0.9 [...] Notes * Luigi RAMSEYOB:1970 (54 yo F)Acc No.[id number]:06/03/2024 Progress Notes Patient: Kimani FALCON Provider: Jackelin Joyner M.D. :1970 A ge:53 Y S ex:Female Date:06/03/2024 Address:[place], [id number] Subjective: * Chief Complaints: * 1 . [...] but but this was discontinued by her author's agent after her surgery. Current blood work is [...] detector use: yes. Marital Status: . 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 Past smoking status: no. * Medications: T [...] yslipidemia - E78.5 ? 3 . B MA 33.0-33.9,adult - Z68.33 4 . P ulmonary embolism - I26.99? Plan: * Treatment: 2. D yslipidemia Notes: Reinforced low-fat diet 3. B MA 33.0-33.9,adult Notes: Discussed lifestyle modification with diet and aerobic exercise 4. P ulmonary embolism Continue Eliquis Tablet, 2.5 MG, take one tablet by mouth twice daily, Orally, Two times a day.? * Follow Up: 2 Months * Images: Billing Information: * Visit Code: 99211 Office Visit, Est Pt., Level 4. * Procedure Codes: * Electronic signature of Jackelin Joyner MD on 10/07/2025 at 01:44 AM EST Sign off status: Pending * Provider: Jackelin Joyner M.D. Date: 0 06/03/2024 Generated for Murali odom/Mari/Aimee on: 1 12/07/2024 01:44 AM EST History and Physical Notes * [...]
--- OUTSIDE RECORDS SUMMARY | 2024-08-05 10:30 | XMS_ITS ---
Author Organization [facility] Address [address] [facility] [address] [place] [id number] Care Team Providers Care Record Center Coordinator Name Role Phone Jackelin Joyner Primary Care Provider Godwin Hdez Unavailable [phone] Herminia Marin Unavailable [phone] Allergies No Known Allergies Results Component Value Reference Range Notes CBC Fingerstick (in house) Reviewed date:08/05/2024 04:10:32 PM Interpretation: Performing Lab: Notes/Report: wbc 12.6 3.5 - 10 lym 46.6 15 - 50 mid 7.8 2 - 15 gran 45.6 35 - 80 rbc 5.52 3.5 - 5.5 hgb 12.8 11.5 - 16.5 hct 41.7 35 - 55 mcv 75.4 75 - 100 mch 23.3 25 - 35 mchc 30.8 31 - 38 plat 359 100 - 400 REASON FOR VISIT 2 months Medications Medication SIG (Take, Route, Frequency, Duration) Notes Start Date End Date Status EQL Allergy/Congestion Relief 10-240 MG 1 tablet Orally Once a day; Duration: 90 days Active Ascorbic Acid 250 MG 1 tablet Orally Onc e a day Active Esomeprazole Magnesium 40 MG 1 cap(s) or ally once a day; Duration: 90 days Active Citalopram Hydrobromide 10 MG 1 tab(s) orally once a day; Duration: 90 days Active Eliquis 2.5 MG take one tablet by mouth twice daily Orally Two times a day; Duration: 90 days Active Ferrous Sulfate 324 MG 1 tablet Orally o nce daily Active Dymista 137-50 MCG/ACT 1 spray(s) intranasally 2 times a day; Duration: 90 days Active Macrobid 100 MG 1 cap(s) orally 2 times a day; Duration: 7 days 07/25/2022 Not-Taking medroxyPROGESTERone Acetate 10 MG 1 tablet with food Orally Once a day Not-Taking Phentermine HCl 15 MG 1 capsule Orally Once a day 08/05/2024 Active Montelukast Sodium 10 MG 1 tab(s) orally once a day; Duration: 30 day(s) Not-Taking Problems Problem Type SNOMED Code ICD Code Onset Dates Problem Status W/U Status Risk Notes Problem Body mass index 30.00 to 34.99 (820366395107 107) BMI 34.0-34.9,a dult (Z68.34) Active confirmed Vital Signs Blood pressure systolic 126 mm Hg 08/05/20 24 Blood pressure diastolic 90 mm Hg 024 Heart Rate 85 /min 08/05/2024 Height 64.50 in 08/05/2024 Weight 205.6 lbs 08/05/2024 BMI 34.74 kg/m2 08/05/2024 Encounters Encounter Location Date Provider Diagnosis [facility] [address] [facility] [address] [place], [place] [address], [place] [id number] 08/05/2024 R David Joyner Microcytic anemia D50.9 and BMI 34.0-34.9,adult Z68.34 Assessments Encounter Date Diagnosis (ICD Code) Assessment Notes Treatment Notes Treatment Clinical Notes Section Notes 08/05/2024 Microcytic anemia (ICD-10 - D50.9) Hemoglobin has improved and is now normal but still with microcytic indices. Will continue iron supplement for an additional 2 months. 08/05/2024 BMI 34.0-34.9,adult (ICD-10 - Z68.34) Reinforced diet and exercise. Plan Of Treatment Medication Medication Name Sig Start Date Stop Date Notes Ferrous Sulfate 324 MG 1 tablet Orally once daily Phentermine HCl 15 MG 1 capsule Orally Once a day 08/05/20 24 Treatment Notes Assessment Notes Microcytic anemia Hemoglobin has impro citlaly and is now normal but still with microcytic indices. Will continue iron supplement for an additional 2 months. BMI 34.0-34.9,adult Reinforced diet and exercise. Next Appt Details Follow Up: 4 Weeks, Reason: Progress Notes * Luigi RAMSEYOB:1970 (54 yo F)Acc No.[id number]:08/05/2024 Progress Notes Patient: Kimani FALCON Provider: Jackelin Joyner M.D. :1970 A ge:53 Y S ex:Female Date:08/05/2024 Address:[facility] [place], [id number] Subjective: * Chief Complaints: * 1 . 2 months. * HPI: H ematology: She returns for 2-month follow-up on her anemia. She is tolerating the iron supplement. C onstitutional: She continues with concerns about weight loss which has accelerated since her hysterectomy. She has tried to be more active in general although not participating in a regular exercise routine. She has made some changes with diet with no improvement. * ROS: C ARDIOLOGY: no C hest [...] detector use: yes. Marital Status: . 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 Past smoking status: no. * Medications: T aking Dymista 137-50 MCG/ACT Suspension 1 spray(s) intranasally 2 times a day , Taking Ascorbic Acid 250 MG Tablet 1 tablet Orally Once a day , Taking EQL Allergy/Congestion Relief 10-240 MG Tablet Extended Release 24 Hour 1 tablet Orally Once a day , Taking Ferrous Sulfate 324 MG Tablet Delayed Release 1 tablet Orally once daily , Taking Eliquis 2.5 MG Tablet take one tablet by mouth twice daily Orally Two times a day , Taking Esomeprazole Magnesium 40 MG Capsule Delayed Release 1 cap(s) orally once a day , Taking Citalopram Hydrobromide 10 MG Tablet 1 tab(s) orally once a day , Not-Taking Montelukast Sodium 10 MG Tablet 1 tab(s) orally once a day , Not-Taking Macrobid 100 MG Capsule 1 cap(s) orally 2 times a day , Not- Taking medroxyPROGESTERone Acetate 10 MG Tablet 1 tablet with food Orally Once a day , Medication List reviewed and reconciled with the patient * Allergies: N .K.D.A. Objective: * Vitals: W t:205.6, Temp:97.5, BP:126/90, HR:85, Nurse:GLORY, Ht: 64.50, BMI:34.74. * Examination: G eneral Examination: General Appearance: N AD. H eart: R SR. L ungs:?clear to auscultation. Assessment: * Assessment: 1. M icrocytic anemia - D50.9 (Primary) 2 . B [place] 34.0-34.9,adult - Z68.34? Plan: * Treatment: Value Reference Range w bc 12.6 3.5 - 10 * l ym 46.6 15 - 50 * m id 7.8 2 - 15 * g ran 45.6 35 - 80 * r bc 5.52 3.5 - 5.5 * h gb 12.8 11.5 - 16.5 * h ct 41.7 35 - 55 * m cv 75.4 75 - 100 * m ch 23.3 25 - 35 * m chc 30.8 31 - 38 * p lat 359 100 - 400 * Aimee De La Cruz 08/05/2024 4:10 :21 PM > results reviewed w/ pt in office Notes: Hemoglobin has improved and is now normal but still with microcytic indices. Will continue iron supplement for an additional 2 months.??2.?BMI 34.0-34.9,adult? Start Phentermine HCl Capsule, 15 MG, 1 capsule, Orally, Once a day, 30.?? Notes: Reinforced diet and exercise.?? * Procedure Codes: 3 6416 CAPILLARY BLOOD DRAW, 58106 CBC WITH AUTO DIFF * Follow Up: 4 Weeks * Images: Billing Information: * Visit Code: 91676 Office Visit, Est Pt., Level 3. * Procedure Codes: 96815 CAPILLARY BLOOD DRAW. 07758 CBC WITH AUTO DIFF. * Electronic signature of Jackelin Joyner MD on 10/07/2025 at 01:43 AM EST Sign off status: Pending * Provider: Jackelin Joyner M.D. Date: 0 08/05/2024 Generated for Murali odom/Mari/Aimee on: 12/07/2024 01:43 AM EST History and Physical Notes * Examination Category Sub-Category Detail Notes Category Not es General Examination Heart: RSR Lungs: clear to auscultatio n General Appearance: NAD
--- OUTSIDE RECORDS SUMMARY | 2024-09-09 11:00 | XMS_ITS ---
Author Organization [facility] Address [address] [place] [id number] Care Team Providers Care Courtesy Van Driver Name Role Phone Jackelin Joyner Primary Care Provider [phone] Godwin Hdez Unavailable [phone] Herminia Marin Unavailable [phone] Allergies No Known Allergies REASON FOR VISIT 1 month Medications Medication SIG (Take, Route, Frequency, Duration) Notes Start Date End Date Status Phentermine HCl 37.5 MG 1 capsule Orally Once a day 09/09/2024 Active Ferrous Sulfate 324 MG 1 tablet Orally o nce daily Active Citalopram Hydrobromide 10 MG 1 tab(s) orally once a day; Duration: 90 days Active Esomeprazole Magnesium 40 MG 1 cap(s) or ally once a day; Duration: 90 days Active EQL Allergy/Congestion Relief 10-240 MG 1 tablet Orally Once a day; Duration: 90 days Active Ascorbic Acid 250 MG 1 tablet Orally Onc e a day Active Dymista 137-50 MCG/ACT 1 spray(s) intranasally 2 times a day; Duration: 90 days Active Eliquis 2.5 MG take one tablet by mouth twice daily Orally Two times a day; Duration: 90 days Active medroxyPROGESTERone Acetate 10 MG 1 tablet with food Orally Once a day Not-Taking Macrobid 100 MG 1 cap(s) orally 2 times a day; Duration: 7 days 07/25/2022 Not-Taking Montelukast Sodium 10 MG 1 tab(s) orally once a day; Duration: 30 day(s) Not-Taking Problems Problem Type SNOMED Code ICD Code Onset Dates Problem Status W/U Status Risk Notes Problem Obese class II (109250118547 105) BMI 35.0-35.9,a dult (Z68.35) Active confirmed Vital Signs Blood pressure systolic 128 mm Hg 09/09/20 24 Blood pressure diastolic 86 mm Hg 024 Heart Rate 50 /min 09/09/2024 Height 64.50 in 09/09/2024 Weight 209.6 lbs 09/09/2024 BMI 35.42 kg/m2 09/09/2024 Encounters Encounter Location Date Provider Diagnosis [facility] [address] [place] [id number] 09/09/2024 Jackelin Joyner BMI 35.0-35.9,adult Z68.35 and Weight gain R63.5 Assessments Encounter Date Diagnosis (ICD Code) Assessment Notes Treatment Notes Treatment Clinical Notes Section Notes 09/09/2024 BMI 35.0-35.9,adul t (ICD-10 - Z68.35) Discussed further dietary recommendations . Impressed the importance of starting an exercise regimen. 09/09/2024 Weight gain (ICD-10 - R63.5) Plan Of Treatment Medication Medication Name Sig Start Date Stop Date Notes Phentermine HCl 37.5 MG 1 capsule Orally Once a day 2023 Treatment Notes Assessment Notes BMI 35.0-35.9,adult Discussed further di etary recommendations. Impressed the importance of starting an exercise regimen. Next Appt Details Follow Up: 1 month, Reason: Progress Notes * Luigi RAMSEYOB:1970 (54 yo F)Acc No.[id number]:09/09/2024 Progress Notes Patient: Kimani FALCON Provider: Jackelin Joyner M.D. :1970 A ge:53 Y S ex:Female Date:09/09/2024 Address:[place], [id number] Subjective: * Chief Complaints: * 1 . 1 month. * HPI: C onstitutional: She returns for follow-up since starting phentermine. She is tolerating the medication but has not seen any benefit. She has actually gained weight. She has made some dietary modifications. Her job is sedentary and she is not getting any regular exercise. * ROS: C ARDIOLOGY: no C hest [...] detector use: yes. Marital Status: . 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 Past smoking status: no. * Medications: T [...] tab(s) orally once a day , Taking Ferrous Sulfate 324 MG Tablet Delayed Release 1 tablet Orally once daily , Taking Phentermine HCl 15 MG Capsule 1 capsule Orally Once a day , Taking EQL Allergy/Congestion Relief 10-240 MG Tablet Extended Release 24 Hour 1 tablet Orally Once a day , Not-Taking Montelukast Sodium 10 MG Tablet 1 tab(s) orally once a day , Not-Taking Macrobid 100 MG Capsule 1 cap(s) orally 2 times a day , Not-Taking medroxyPROGESTERone Acetate 10 MG Tablet 1 tablet with food Orally Once a day , Medication List reviewed and reconciled with the patient * Allergies: N .K.D.A. Objective: * Vitals: W t:209.6, Temp:97.2, BP:128/86, HR:50, Nurse:GLORY, Ht: 64.50, BMI:35.42. * Examination: G eneral Examination: General Appearance: N AD. H eart: R SR. L ungs:?clear to auscultation. Assessment: * Assessment: 1. B [place] 35.0-35.9,adult - Z68.35 (Primary) 2 . W eight gain - R63.5 ? Plan: * Treatment: * Follow Up: 1 month * Images: Billing Information: * Visit Code: 12457 Office Visit, Est Pt., Level 3. * Procedure Codes: * Electronic signature of Jackelin Joyner MD on 10/07/2025 at 01:43 AM EST Sign off status: Pending * Provider: Jackelin Joyner M.D. Date: Generated for Murali odom/Mari/Radhasmitting on: 12/07/2024 01:43 AM EST History and Physical Notes * Examination Category Sub-Category Detail Notes Category Not es General Examination Heart: RSR Lungs: clear to auscultatio n General Appearance: NAD
--- OUTSIDE RECORDS SUMMARY | 2024-10-14 11:00 | XMS_ITS ---
Author Organization [facility] Address [address] [facility] [address] [facility] [address] [place] [id number] Care Team Providers Care Architectural Examiner Name Role Phone Jackelin Joyner Primary Care Provider [phone] Godwin Hdez Unavailable [phone] Herminia Marin Unavailable [phone] REASON FOR VISIT 1 month Encounters Encounter Location Date Provider Diagnosis [facility] [address] [place] [phone] 10/14/2024 Jackelin Joyner Plan Of Treatment No Information Progress Notes * Luigi RAMSEYOB:1970 (54 yo F)Acc No.[id number]:10/14/2024 Progress Notes Patient: Kimani FALCON Provider: Jackelin Joyner M.D. :1970 A ge:53 Y S ex:Female Date:10/14/2024 Address:[place], [id number] Subjective: * Chief Complaints: * 1 . 1 month. * Medical History: Objective: * Vitals: Assessment: Plan: * Treatment: * Images: Billing Information: * Visit Code: * Procedure Codes: * Electronic signature of Jackelin Joyner MD on 10/07/2025 at 01:44 AM EST Sign off status: Pending * Provider: Jackelin Joyner M.D. Date: 1 12/14/2023 Generated for Murali odom/Mari/Aimee on: 1 12/07/2024 01:44 AM EST
--- OUTSIDE RECORDS SUMMARY | 2024-11-08 11:45 | XMS_ITS ---
Author Organization [facility] Address [address] [place] [id number] Care Team Providers Care Crane Oiler Name Role Phone Jackelin Joyner Primary Care Provider Godwin Hdez Unavailable [phone] Herminia Marin Unavailable [phone] Dima Ramires Unavailable [phone] Allergies No Known Allergies Results Component Value Reference Range Notes Urinalysis - Inhouse Reviewed date:11/11/2024 11:37:27 AM Interpretation: Performing Lab: Notes/Report: Color/Clarity yellow/clear Leuk Neg Nitrite Neg Urobili 3.2 Protein Neg pH 6.0 Blood Trace-Intact Sp. Gr. 1.025 Ketone Neg Bili Neg Gluc Neg TEN-UTI panel Reviewed date:11/11/2024 11:13:47 AM Interpretation:Negative Performing Lab: Notes/Report: Negative REASON FOR VISIT rash all over Medications Medication SIG (Take, Route, Frequency, Duration) Notes Start Date End Date Status EQL Allergy/Congestion Relief 10-240 MG 1 tablet Orally Once a day; Duration: 90 days Active Eliquis 2.5 MG take one tablet by m outh twice daily Orally Two times a day; Duration: 90 days Active Ascorbic Acid 250 MG 1 tablet Orally Onc e a day Active Ferrous Sulfate 324 MG 1 tablet Orally o nce daily Active Citalopram Hydrobromide 10 MG 1 tab(s) orally once a day; Duration: 90 days Active Esomeprazole Magnesium 40 MG 1 cap(s) orally once a day; Duration: 90 days Active dexAMETHasone 2 MG 1 tablet Orally ever y 12 hrs; Duration: 5 day(s) 11/08/2024 Active Dymista 137-50 MCG/ACT 1 spray(s) intran asally 2 times a day; Duration: 90 days Active Vital Signs Blood pressure systolic 130 mm Hg 11/08/20 24 Blood pressure diastolic 84 mm Hg 024 Heart Rate 64 /min 11/08/2024 Height 64.50 in 11/08/2024 Weight 212.2 lbs 11/08/2024 BMI 35.86 kg/m2 11/08/2024 Encounters Encounter Location Date Provider Diagnosis [facility] [address] [place], [place] [id number] 11/08/2024 Dima Ramires Rash R21 ; Dysuria R30.0 and Microscopic hematuria R31.29 Assessments Encounter Date Diagnosis (ICD Code) Assessment Notes Treatment Notes Treatment Clinical Notes Section Notes 11/08/2024 Rash (ICD-10 - R21) 11/08/2024 Dysuria (ICD-10 - R30.0) 11/08/2024 Microscopic hematuria (ICD-10 - R31.29) Plan Of Treatment Medication Medication Name Sig Start Date Stop Date Notes dexAMETHasone 2 MG 1 tablet Orally ever y 12 hrs; Duration: 5 day(s) 11/08/2024 Next Appt Details Follow Up: via phone to repo rt test results, Reason: Progress Notes * Luigi RAMSEYOB:1970 (54 yo F)Acc No.[id number]:11/08/2024 Progress Notes Patient: Kimani FALCON Provider: Kev Ramires M.D. :1970 A ge:53 Y S ex:Female Date:11/08/2024 Address:[facility] [place], [id number] Pcp:Jackelin Joyner Subjective: * Chief Complaints: * 1 . Rash all over. * HPI: D ermatology: 53 year old female presents with c/o rash P t complains of itchy rash that she noticed yesterday morning. Pt states she did buy a new a sweater and wore it without washing it first on Friday night. Pt states rash has spread all over her body. U rology: c/o burning sensation P t complains of burning with urination about a week ago. Pt states she has been taking Azo and her sx have improved but she wants to make sure she does not need abx. * ROS: D ERMATOLOGY: no R arlet. n o H fiona. G ASTROENTEROLOGY: no N ausea. n o V omiting. U ROLOGY: no D ifficulty urinating. n o B lood in urine. * Medical History: A llergues, Urinary Incontinence, Anemia, Allergic Rhinitis, Anxiety , Esophageal Reflux, Pulmonary embolus, Cologuard - negative 04/2024. * Surgical History: C omplete Hysterectomy 10/09/2023. * Hospitalization/Major Diagno stic Procedure: [facility] - Anxiety 05/17/2023, [facility] 05/17/23-. * Family History: F ather: alive. M [...] use: yes. Marital Status: . 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 Past smoking status: no. * Medications: T [...] 1 tablet Orally once daily , Taking EQL Allergy/Congestion Relief 10-240 MG Tablet Extended Release 24 Hour 1 tablet Orally Once a day , Discontinued Phentermine HCl 37.5 MG Tablet 1 capsule Orally Once a day , Discontinued Montelukast Sodium 10 MG Tablet 1 tab(s) orally once a day , Discontinued Macrobid 100 MG Capsule 1 cap(s) orally 2 times a day , Discontinued medroxyPROGESTERone Acetate 10 MG Tablet 1 tablet with food Orally Once a day , Medication List reviewed and reconciled with the patient * Allergies: N .K.D.A. Objective: * Vitals: W t:212.2, Temp:97.8, BP:130/84, HR:64, Nurse:kk9, Ht: 64.50, BMI:35.86. * Examination: G eneral Examination: General Appearance: N AD. S kin: s cattered reddened patches of skin with some discrete red macules, several excoriations, mainly on trunk. B ack:? no CVA tenderness. Assessment: * Assessment: 1. R arlet - R21 (Primary) 2 . D ysuria - R30.0 3 . M icroscopic hematuria - R31.29 Plan: * Treatment: 2. D ysuria L AB: TEN-UTI panel (Collection Date & Time - 11/08/2024) N egative ?LAB: Urinalysis - Inhouse (Collection Date & Time - 11/11/2024)* Value Reference Range C olor/Clarity yellow/clear * L euk Neg * N itrite Neg * U robili 3.2 * P rotein Neg * p H 6.0 * B lood Trace-Intact * S p. Gr. 1.025 * K etone Neg * B edith Neg * G vinay Neg * Yuki Fountain 11/11/2024 11:36: 56 AM > , Provider reviewed results while patient in office. 3.?Microscopic hematuria?LAB: TEN-UTI panel (Collection Date & Time - 11/08/2024)?Negative* Yuki Fountain 11/11/2024 11:13: 24 AM > Pt informed * Procedure Codes: 8 1002 Urinalysis, no micro * Follow Up: v ia phone to report test results * Images: Billing Information: * Visit Code: 65224 Office Visit, Est Pt., Level 3. * Procedure Codes: 85294 Urinalysis, no micro. * Electronic signature of Kate Ramires MD on 10/07/2025 at 01:44 AM EST Sign off status: Pending * Provider: Kev Ramires M.D. Date: 1 01/09/2024 Generated for Printi ng/Mari/eTransmitting on: 1 12/07/2024 01:44 AM EST History and Physical Notes * HPI (History of Present Illness) Category Sub-Category Detail Notes Category Not es Dermatology rash Pt complains of itchy rash that she noticed yesterday morning. Pt states she did buy a new a sweater and wore it without washing it first on Friday night. Pt states rash has spread all over her body Urology burning sensation Pt complains o f burning with urination about a week ago. Pt states she has been taking Azo and her sx have improved but she wants to make sure she does not need abx Examination Category Sub-Category Detail Notes Category Not es General Examination General Appearance: NAD Skin: scattered reddened p atches of skin with some discrete red macules, several excoriations, mainly on trunk Back: no CVA tenderness
--- OUTSIDE RECORDS SUMMARY | 2025-04-08 04:15 | XMS_ITS ---
Author Organization [facility] Address [address] [facility] [address] [place] [phone] Care Team Providers Care Flavoring Maker Name Role Phone Jackelin Joyner Primary Care Provider [phone] Godwin Hdez Unavailable [phone] Herminia Marin Unavailable [phone] Lizy Swanson Unavailable [phone] Allergies No Known Allergies Results Component Value Reference Range Notes CBC Venipuncture (in house) Reviewed date:04/10/2025 11:23:03 PM Interpretation: Performing Lab: Notes/Report: wbc 8.2 3.5 - 10 lymph 38.2 15 - 50 mid 7.0 2 - 15 gran 54.8 35 - 80 rbc 5.32 3.5 - 5.5 hgb 14.5 11.5 - 16.5 hct 44.7 35 - 55 mcv 84.0 75 - 100 mch 27.2 25 - 35 mchc 32.4 31 - 38 platlet 543 100 - 400 P-Comprehensive Metabolic Pa yosvany (CMP) Reviewed date:04/20/2025 03:04:48 PM Interpretation: Normal Performing Lab: Notes/Report: Test performed by [facility], [employer] [address] [place] [address] , [address], [place] [address] Jc Salmon MD, [employer] CLIA: [id number] Sodium 138 135-145 mmol/L Potassium 4.9 3.5-5.3 mmol/L Chloride 101 97-108 mmol/L CO2 25 22-32 mmol/L Glucose 116 65-99 mg/dL BUN 15 6-20 mg/dL Creatinine 0.78 0.50-1.00 mg/dL Calcium 9.7 8.6-10.4 mg/dL eGFR by Creatinine 90 >59 mL/min/1.73m2 Protein 7.4 6.0-8.3 g/dL Albumin 4.2 3.5-5.3 g/dL Alkaline Phosphatase 92 35-121 IU/L ALT (SGPT) 18 <5-47 IU/L AST (SGOT) 17 <5-40 IU/L Bilirubin, Total 0.2 <0.2-1.2 mg/dL A/G Ratio 1.3 1.1-2.5 P-Ferritin Reviewed date:04/20/2025 03:04:49 PM Interpretation: Normal Performing Lab: Notes/Report: Test performed by [facility] [address] [place] [address] , [address], [place] [address] Jc Salmon MD, [employer] CLIA: [id number] Ferritin 24.6 13.0-301.0 ng/mL P-Iron Reviewed date:04/20/2025 03:04:49 PM Interpretation: Normal Performing Lab: Notes/Report: Test performed by [facility] [address] [place] [address] , [address], [place] [address] Jc Salmon MD, [employer] CLIA: [id number] Iron 79 37-145 ug/dL P-Lipid Panel Reviewed date:04/20/2025 03:04:49 PM Interpretation:chol 210, trigs 154, non-hdl 159 Performing Lab: Notes/Report: Test performed by [facility] [address] [place] [address] , [address], [place] [address] Jc Salmon MD, [employer] CLIA: [id number] Cholesterol 210 <200 mg/dL Triglycerides 154 <150 mg/dL HDL Cholesterol 51 >39 mg/dL Cholesterol / HDL Ratio 4.12 0.00-4.44 Ratio Non-HDL Cholesterol 159 <130 mg/dL LDL Cholesterol (Calculation) 128 <130 mg/dL LDL Cholesterol Levels* Less than 100 mg/dL Optimal 100 to 129 mg/dL Near Optimal/ Above Optimal 130 to 159 mg/dL Borderline High 160 to 189 mg/dL High 190 mg/dL and above Very High * Categories as recommended by the 2004 ATPIII guidelines LDL/HDL Ratio 2.5 <3.3 Ratio LDL Cholesterol Patient History Test Date: 04/08/2025 LDL Results: 128 Units: mg/dL % Change: - P-TSH reflex to FT4 Reviewed date:04/20/2025 03:04:49 PM Interpretation: Normal Performing Lab: Notes/Report: Test performed by [facility], [address] , [address], [place] [address] Jc Salmon MD, [employer] CLIA: [id number] TSH reflex to FT4 1.52 0.43-5.25 mU/L Mammogram Reviewed date:04/21/2025 12:57:31 PM Interpretation:Negative Performing Lab: Notes/Report: Negative REASON FOR VISIT checkup w/labs, Needs mammogram, colon cancer screening, Tdap, & shingles vaccine Medications Medication SIG (Take, Route, Frequency, Duration) Notes Start Date End Date Status Eliquis 2.5 MG 1 tab(s) Orally Two times a day; Duration: 90 days patient must keep appt Active Ascorbic Acid 250 MG 1 tablet Orally Onc e a day Active EQL Allergy/Congestion Relief 10-240 MG 1 tablet Orally Once a day; Duration: 90 days Active Citalopram Hydrobromide 10 MG 1 tablet Orally Once a day; Duration: 90 days patient must keep appt Active Dymista 137-50 MCG/ACT 1 spray(s) intranasally 2 times a day; Duration: 90 days Active Esomeprazole Magnesium 40 MG 1 cap(s) Orally once daily; Duration: 90 days Active Immunizations Vaccine Route Administration Date Status Comme nts Tetanus Tdap-Adacel (over 7yrs) IM Intramuscular 04/08/2025 Administered Problems Problem Type SNOMED Code ICD Code Onset Dates Problem Status W/U Status Risk Notes Problem Gastroesophageal reflux disease ([id number]) GERD without esophagitis (K21.9) Active confirmed Vital Signs Blood pressure systolic 126 mm Hg 04/08/20 25 Blood pressure diastolic 84 mm Hg 025 Heart Rate 88 /min 04/08/2025 Height 64.50 in 04/08/2025 Weight 215.8 lbs 04/08/2025 BMI 36.47 kg/m2 04/08/2025 Encounters Encounter Location Date Provider [facility] [address] [phone] 04/08/2025 Lizy Swanson Anxiety and depressi on F41.8 ; Pulmonary embolism I26.99 ; Microcytic anemia D50.9 ; Seasonal allergic rhinitis, unspecified trigger J30.2 ; Dyslipidemia E78.5 ; Iron deficiency anemia D50.9 ; GERD without esophagitis K21.9 ; Acute URI J06.9 and Screening mammogram, encounter for Z12.31 Assessments Encounter Date Diagnosis (ICD Code) Assessment Notes Treatment Notes Treatment Clinical Notes Section Notes 04/08/2025 Anxiety and depression (ICD-10 - F41.8) 04/08/2025 Pulmonary embolism (ICD-10 - I26.99) 04/08/2025 Microcytic anemia (ICD-10 - D50.9) 04/08/2025 Seasonal allergic rhinitis, unspecified trigger (ICD-10 - J30.2) 04/08/2025 Dyslipidemia (ICD-10 - E78.5) 04/08/2025 Iron deficiency anemia (ICD-10 - D50.9) 04/08/2025 GERD without esophagitis (ICD-10 - K21.9) 04/08/2025 Acute URI (ICD-10 - J06.9) 04/08/2025 Screening mammogram, encounter for (ICD-10 - Z12.31) Plan Of Treatment Medication Medication Name Sig Start Date Stop Date Notes Eliquis 2.5 MG 1 tab(s) Orally Two times a day; Duration: 90 days patient must keep appt EQL Allergy/Congestion Relief 10-240 MG 1 tablet Orally Once a day; Duration: 90 days Citalopram Hydrobromide 10 MG 1 tablet Orally Once a day; Duration: 90 days patient must keep appt Dymista 137-50 MCG/ACT 1 spray(s) intran asally 2 times a day; Duration: 90 days Esomeprazole Magnesium 40 MG 1 cap(s) Orally once daily; Duration: 90 days Next Appt Details Follow Up: via phone to repo rt test results, Reason: Progress Notes * BRAULIOLuigiOB:1970 (54 yo F)Acc No.[id number]:04/08/2025 Progress Notes Patient: Kimani FALCON Provider: JAMAL Cavanaugh :1970 A ge:54 Y S ex:Female Date:04/08/2025 Address:[address] [place] [address] [facility] [id number] Pcp:Jackelin Joyner Subjective: * Chief Complaints: * 1 . Checkup w/labs. 2. Needs mammogram, colon cancer screening, Tdap, & shingles vaccine. * HPI: H PI: 54 year old female presents with c/o Patient is here today for?Pt is here today for a check up with labs. Pt sts she does need refills. * ROS: D ERMATOLOGY: no R arlet. [...] smoking status: no. * Medications: T aking Ascorbic Acid 250 MG Tablet 1 tablet Orally Once a day , Taking Esomeprazole Magnesium 40 MG Capsule Delayed Release Take 1 capsule by mouth once daily , Taking EQL Allergy/Congestion Relief 10-240 MG Tablet Extended Release 24 Hour 1 tablet Orally Once a day , Taking Citalopram Hydrobromide 10 MG Tablet Take 1 tablet by mouth once daily , Notes to Pharmacist: patient must keep appt, Taking Dymista 137-50 MCG/ACT Suspension 1 spray(s) intranasally 2 times a day , Taking Eliquis 2.5 MG Tablet 1 tab(s) Orally Two times a day , Notes to Pharmacist: patient must keep appt, Medication List reviewed and reconciled with the patient * Allergies: N .K.D.A. Objective: * Vitals: W t: 215.8, Temp: 97.7, BP: 126/84, HR: 88, Nurse: valentina, Ht: 64.50, BMI:36.47. * Examination: G eneral Examination: General Appearance: N AD. H EENT: s clera and conjunctiva clear, PERRLA, TM's normal, translucent, nose congested. O ral cavity: n o lesions, mucosa moist and WNL, no erythema. N shireen: s upple, no lymphadenopathy. C hest: n ormal shape and expansion. H eart: R SR. L ungs: c lear to auscultation. A bdomen:? bowel sounds present, soft and nontender. N eurologic Exam: I ntact, gait normal. S kin: n ormal, no rash. P eripheral pulses: n ormal (2+) bilaterally. E xtremities: no leg edema. Assessment: * Assessment: 1. A nxiety and depression - F41.8 (Primary) 2 . P ulmonary embolism - I26.99 3 . M icrocytic anemia - D50.9 4 . S easonal allergic rhinitis, unspecified trigger - J30.2 5 . D yslipidemia - E78.5 6 . Iron deficiency anemia - D50.9 7 . G ERD without esophagitis - K21.9 ? 8 . A cute URI - J06.9 9 . S creening mammogram, encounter for - Z12.31 Plan: * Treatment: 2. P ulmonary embolism Refill Eliquis Tablet, 2.5 MG, 1 tab(s), Orally, Two times a day, 90 days, 180 Tablet, Refills 3, Notes to Pharmacist: patient must keep appt. 3. S easonal allergic rhinitis, unspecified trigger Refill EQL Allergy/Congestion Relief Tablet Extended Release 24 Hour, 10-240 MG, 1 tablet, Orally, Once a day, 90 days, 90 Tablet, Refills 1; R efill Dymista Suspension, 137-50 MCG/ACT, 1 spray(s), intranasally, 2 times a day, 90 days, 3, Refills 1. 4. D yslipidemia L AB: P-Comprehensive Metabolic Panel (CMP) (Collection Date & Time - 04/08/2025 10:26 AM) N ormal Value Reference Range A /G Ratio 1.3 1.1-2.5 - * A lbumin 4.2 3.5-5.3 - g/dL * A lkaline Phosphatase 92 35-121 - IU/L * A LT (SGPT) 18 <5-47 - IU/L * A ST (SGOT) 17 <5-40 - IU/L * B ilirubin, Total 0.2 <0.2-1.2 - mg/dL * B UN 15 6-20 - mg/dL * C alcium 9.7 8.6-10.4 - mg/dL * C hloride 101 97-108 - mmol/L * C O2 25 22-32 - mmol/L * C reatinine 0.78 0.50-1.00 - mg/dL * G lucose 116 H 65-99 - mg/dL * P otassium 4.9 3.5-5.3 - mmol/L * S odium 138 135-145 - mmol/L * P rotein 7.4 6.0-8.3 - g/dL * e GFR by Creatinine 90 >59 - mL/min/1.73m2 * Aimee De La Cruz 04/20/2025 03: 04:41 PM > See phone encounter ?LAB: P-Lipid Panel (Collection Date & Time - 04/08/2025 10:26 AM)?chol 210, trigs 154, non-hdl 159* Value Reference Range C holesterol / HDL Ratio 4.12 0.00-4.44 - Ratio * C holesterol 210 H <200 - mg/dL * H DL Cholesterol 51 >39 - mg/dL * L DL Cholesterol (Calculation) 128 <130 - mg/d L * L DL/HDL Ratio 2.5 <3.3 - Ratio * N on-HDL Cholesterol 159 H <130 - mg/dL * T riglycerides 154 H <150 - mg/dL * Aimee De La Cruz 04/20/2025 03: 04:41 PM > See phone encounter 5.?Iron deficiency anemia?LAB: P-Ferritin (Collection Date & Time - 04/08/2025 10:26 AM)?Normal* Value Reference Range F erritin 24.6 13.0-301.0 - ng/mL * Aimee De La Cruz 04/20/2025 03: 04:41 PM > See phone encounter ?LAB: P-Iron (Collection Date & Time - 04/08/2025 10:26 AM)?Normal* Value Reference Range I shashank 79 37-145 - ug/dL * Aimee De La Cruz 04/20/2025 03: 04:41 PM > See phone encounter ?LAB: CBC Venipuncture (in house) (Collection Date & Time - 04/08/2025)* Value Reference Range w bc 8.2 3.5 - 10 * l ymph 38.2 15 - 50 * m id 7.0 2 - 15 * g ran 54.8 35 - 80 * r bc 5.32 3.5 - 5.5 * h gb 14.5 11.5 - 16.5 * h ct 44.7 35 - 55 * m cv 84.0 75 - 100 * m ch 27.2 25 - 35 * m chc 32.4 31 - 38 * p latlet 543 100 - 400 * Anna Jennings 04/08/2025 11:3 0:09 AM > Provider reviewed results while patient in office. 6.?GERD without esophagitis? Refill Esomeprazole Magnesium Capsule Delayed Release, 40 MG, 1 cap(s), Orally, once daily, 90 days, 90, Refills 3.?LAB: P-TSH reflex to FT4 (Collection Date & Time - 04/08/2025 10:26 AM)? Normal* Value Reference Range T SH reflex to FT4 1.52 0.43-5.25 - mU/L * Aimee De La Cruz 04/20/2025 03: 04:41 PM > See phone encounter 7.?Screening mammogram, encounter for?Imaging: Mammogram (Performed Date - 04/15/2025)?Negative* Lizy Swanson 04/10/2025 10 :45:17 PM >Brooklynn Madsen 04/11/2025 8:57:45 AM > faxed to [facility] Scheduling Appt. @ 4:30CrLizy ried 04/21/2025 08:28:47 AM > Please let patient know this was normal, will need another one in 1 yearAnna Jennings 04/21/2025 12:57:06 PM >pt informed * Immunizations: Tetanus Tdap-Adacel (over 7yrs) : 0.5 mL (Route: Intramuscular) given by VALENTINA Ayala on Right Arm (Microcytic anemia) * Procedure Codes: 8 5025 CBC WITH AUTO DIFF, 3074F SYST BP LT 130 MM HG, 3079F DIAST BP 80-89 MM HG * Follow Up: v ia phone to report test results * Images: Billing Information: * Visit Code: 74800 Office Visit, Est Pt., Level 4. * Procedure Codes: 91433 CBC WITH AUTO DIFF. 3074F SYST BP LT 130 MM HG. 3079F DIAST BP 80-89 MM HG. * Electronic signature of JAMAL Gaston on 10/07/2025 at 01:44 AM EST Sign off status: Pending * Provider: JAMAL Cavanaugh Date: 0 04/08/2025 Generated for Murali odom/Mari/eTganeshsmitting on: 1 12/07/2024 01:44 AM EST History and Physical Notes * HPI (History of Present Illness) Category Sub-Category Detail Notes Category Not es HPI Patient is here today for Pt is here today for a check up with labs. Pt sts she does need refills Examination Category Sub-Category Detail Notes Category Not es General Examination HEENT: sclera and c onjunctiva clear, PERRLA, TM's normal, translucent, nose congested Heart: RSR Lungs: clear to auscultatio n Abdomen: bowel sounds present , soft and nontender Extremities: no leg edema General Appearance: NAD Skin: normal, no rash Neurologic Exam: Intact, gait normal Neck: supple, no lymphaden opathy Oral cavity: no lesions, mucosa m oist and WNL, no erythema Peripheral pulses: normal (2+) bilatera lly Chest: normal shape and exp ansion
--- OUTSIDE RECORDS SUMMARY | 2025-06-10 06:00 | XMS_ITS ---
Author Organization [facility] Address [facility] [facility] [address] [place] [id number] Care Team Providers Care Manager Corporate Communications Name Role Phone Jackelin Joyner Primary Care Provider Godwin Hdez Unavailable [phone] Herminia Marin Unavailable [phone] Lizy Swanson Unavailable [phone] Allergies No Known Allergies REASON FOR VISIT 2 Month Follow Up, Needs shingles vaccine Encounters Encounter Location Date Provider Diagnosis [facility] [address] [facility] [address] [place] [phone] 06/10/2025 Lizy Swanson Plan Of Treatment No Information Progress Notes * Luigi RAMSEYOB:1970 (54 yo F)Acc No.[id number]:06/10/2025 Progress Notes Patient: Kimani FALCON Provider: JAMAL Cavanaugh :1970 A ge:54 Y S ex:Female Date:06/10/2025 Address:[place], [id number] Pcp:Jackelin Joyner Subjective: * Chief Complaints: * [...] detector use: yes. Marital Status: . 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 Past smoking status: no. * Allergies: N .K.D.A. Objective: * Vitals: Assessment: Plan: * Treatment: * Images: Billing Information: * Visit Code: * Procedure Codes: * Electronic signature of JAMAL Gaston on 10/07/2025 at 01:43 AM EST Sign off status: Pending * Provider: JAMAL Cavanaugh Date: 0 06/10/2025 Generated for Murali odom/Mari/Ekaterinaitting on: 12/07/2024 01:43 AM EST History and Physical Notes * HPI (History of Present Illness) Category Sub-Category Detail Notes Category Not es HPI Patient is here today for Pt is here today for a 2 month check up. Pt sts she is doing well and has no ocncerns
[2025-10-07] VITALS (10 sets, daily range): BP systolic 132–196; BP diastolic 78–120; PULSE 72–107; RESP 12–18; TEMP 36.6–37.1; O2SAT 92–100; BMI 31.2
--- NOTE | 2025-10-07 01:40 | CT_ITS ---
PROCEDURE INFORMATION: Exam: CT Abdomen And Pelvis With Contrast Exam date and time: 10/07/2025 2:45 AM Age: 54 years old Clinical indication: Abdominal pain; Flank; Right; Additional info: Severe R flank pain dysuria hematuria TECHNIQUE: Imaging protocol: Computed tomography of the abdomen and pelvis with contrast. Radiation optimization: All CT scans at this facility use at least one of these dose optimization techniques: automated exposure control; mA and/or kV adjustment per patient size (includes targeted exams where dose is matched to clinical indication); or iterative reconstruction. Contrast material: ISOVUE; Contrast volume: 75 ml; Contrast route: IV; COMPARISON: CR XR HIP RT 2-3V W/PELVIS 01/28/2020 11:00 AM FINDINGS: Diaphragm: Small fat containing hiatal hernia. Liver: Unremarkable. Gallbladder and biliary ducts: Cholecystectomy. Pancreas: Normal. No ductal dilation. 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 Adrenal glands: Unremarkable. Kidneys and ureters: Minimal increased density in the right distal ureter proximal to the UVJ may correspond with a tiny (1 mm) ureteral stone at the limits of resolution for this exam however cannot exclude an enhancing urothelial lesion. There is associated mild right-sided hydroureteronephrosis. Stomach and bowel: No mechanical bowel obstruction. Appendix: No evidence of appendicitis. Intraperitoneal space: Nonspecific mild hazy edema along the mesenteric root may represent a mesenteric panniculitis. Vasculature: Unremarkable. No abdominal aortic aneurysm. Lymph nodes: No enlarged lymph nodes. Urinary bladder: Unremarkable as visualized. Reproductive: Hysterectomy. Bones/joints: No acute fracture. Osseous deformity along the pubic symphysis and left inferior pubic ramus may represent prior trauma. Soft tissues: Infraumbilical small bowel containing ventral hernia without findings to suggest strangulation or obstruction. IMPRESSION: Minimal increased density in the right distal ureter proximal to the UVJ may correspond with a tiny (1 mm) ureteral stone at the limits of resolution for this exam however cannot exclude an enhancing urothelial lesion. There is associated mild right-sided hydroureteronephrosis. Recommend urology consultation.
--- OUTSIDE RECORDS SUMMARY | 2025-10-07 01:43 | XMS_ITS | Encounter Summary ---
Author Organization Healthcare Address [address] [place] [address] Care Team Providers Care Cold Type Artist Name Role Phone Leonel Joyner MD Primary Care Provider [phone] Encounter Details Date Type Department Care Team (Late st Contact Info) Description 05/20/2023 Lab Requisition [facility] [address] [place] [address] Maninder Martinez MD [address] [facility] [address] [place] [address] Encounter for general adult medical examination without abnormal findings Social History Tobacco Use Types Packs/Day Years Used Date Smoking Tobacco: Never Smokeless Tobacco: Never Alcohol Use Standard Drinks/Week Comments Not Currently 0 (1 standard drink = 0.6 oz pure alcohol) Drink alcohol less than once a week CAGE ASSESSMENT Answer Date Recorded Cage unable to access Not on file 05/18/2023 Cage max number of drinks Not on file 2022 Cage Beverages a week Not on file 05/18/2023 Have you ever felt you should CUT down on your d rinking? 0 05/18/2023 Have you been ANNOYED by people criticizing your drinking? 0 05/18/2023 Have you felt GUILTY about your drinking? 0 05/18/2023 Have you had a drink first t devaughn in the morning ([employer]) to steady your nerves or to get rid of a hangover? 0 05/18/2023 CAGE Questionnaire Score 0 023 Comments Unknown Sex and Gender Information Value Date Recorded Sex Assigned at Female 05/17/2023 6:01 PM EDT Legal Sex Female 6:01 PM EDT Gender Identity Female 05/17/2023 6:01 PM EDT Sexual Orientation Not on file documented as of this encounter Functional Status * Calculated C-SSRS Risk Score (Lifetime/Recent) Answer Date of Assessment Author No Risk Indicated 05/21/2023 8:00 PM EDT Pancho Mayberry APRN, KULDIP * Question Answer Date of Assessment Author 1. Wish to be (Past 1 Month) No 05/21/2023 8:00 PM EDT Loree Ramirez [employer], KULDIP 2. Non-Specific Active Suicidal Thoughts (Past 1 Month) No 05/21/2023 8:00 PM EDT Loree Ramirez [employer], DNP 6. Suicidal Behavior (Lifetime) No 05/21/2023 8:00 PM EDT Loree Ramirez APRN, KULDIP documented as of this encounter Plan of Treatment Not on file documented as of this encounter Procedures Procedure Name Priority Date/Time Associated Diagnosis Comments MULTI DRUG RESISTANCE TEST Routine 05/20/2023 10:30 AM EDT Encounter for general adult medical examination without abnormal findings documented in this encounter Results * (ABNORMAL) Multi Drug Resistance Test (05/20/2023 10:30 AM EDT) Culture Methicillin-Resis tant Staphylococcus aureus(AA) 05/22/2023 9:19 AM EDT [facility] Comment:Previously isolated, still present in culture. 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
--- OUTSIDE RECORDS SUMMARY | 2025-10-07 01:44 | XMS_ITS | Patient Health Record ---
[facility] [address] [place] [phone] Care Team Providers Care Continuity Clerk Name Role Phone Jackelin Joyner Primary Care Provider Godwin Hdez Unavailable [phone] Herminia Marin Unavailable [phone] Dima Ramires Unavailable [phone] Lizy Swanson Unavailable [phone] Allergies No Known Allergies Results Component Value Reference Range Notes P-Ferritin Reviewed date:04/20/2025 03:04:49 PM Interpretation: Normal Performing Lab: Notes/Report: CLIA: [id number] Jc Salmon MD, Design Project Manager [address] [place] [address] , [place] [address] Test performed by [facility] Ferritin 24.6 13.0-301.0 ng/mL P-Iron Reviewed date:04/20/2025 03:04:49 PM Interpretation: Normal Performing Lab: Notes/Report: Test performed by [facility] [address] [place] [address] , [address], [place] [address] Jc Salmon MD, Design Project Manager CLIA: [id number] Iron 79 37-145 ug/dL P-TSH reflex to FT4 Reviewed date:04/20/2025 03:04:49 PM Interpretation: Normal Performing Lab: Notes/Report: Test performed by [facility] [address] [place] [address] , [address], [place] [address] Jc Salmon MD, Design Project Manager CLIA: [id number] TSH reflex to FT4 1.52 0.43-5.25 mU/L P-Lipid Panel Reviewed date:04/20/2025 03:04:49 PM Interpretation:chol 210, trigs 154, non-hdl 159 Performing Lab: Notes/Report: Test performed by [facility], [address] , [address], [place] [address] Jc Salmon MD, Design Project Manager CLIA: [id number] Cholesterol 210 <200 mg/dL Triglycerides 154 <150 [...] Results: 128 Units: mg/dL % Change: - P-Comprehensive Metabolic Pa yosvany (CMP) Reviewed date:04/20/2025 03:04:48 PM Interpretation: Normal Performing Lab: Notes/Report: Test performed by [facility] [address] [place] [address] , [address], [place] [address] Jc Salmon MD, Design Project Manager CLIA: [id number] Sodium 138 135-145 mmol/L Potassium 4.9 3.5-5.3 [...] 0.2 <0.2-1.2 mg/dL A/G Ratio 1.3 1.1-2.5 CBC Venipuncture (in house) Reviewed date:04/10/2025 11:23:03 [...] - 38 platlet 543 100 - 400 Mammogram Reviewed date:04/21/2025 12:57:31 PM Interpretation:Negative Performing Lab: Notes/Report: Negative Urinalysis - Inhouse Reviewed date:11/11/2024 11:37:27 AM Interpretation: Performing Lab: Notes/Report: Color/Clarity yellow/clear Leuk Neg Nitrite Neg Urobili 3.2 Protein Neg pH 6.0 Blood Trace-Intact Sp. Gr. 1.025 Ketone Neg Bili Neg Gluc Neg TEN-UTI panel Reviewed date:11/11/2024 11:13:47 AM Interpretation:Negative Performing Lab: Notes/Report: Negative Medications Medication SIG (Take, Route, Frequency, Duration) Notes Start Date End Date Status Eliquis 2.5 MG 1 tab(s) Orally Two times a day; Duration: 90 days patient must keep appt Active Ascorbic Acid 250 MG 1 tablet Orally Onc e a day Active Esomeprazole Magnesium 40 MG 1 cap(s) Orally once daily; Duration: 90 days Active EQL Allergy/Congestion Relief 10-240 MG 1 tablet Orally Once a day; Duration: 90 days Active Citalopram Hydrobromide 10 MG 1 tablet Orally Once a day; Duration: 90 days patient must keep appt Active Dymista 137-50 MCG/ACT 1 spray(s) intranasally 2 times a day; Duration: 90 days Active Immunizations Vaccine Route Administration Date Status Comme nts Tetanus Tdap-Adacel (over 7yrs) IM Intramuscular 04/08/2025 Administered COVID 19 Moderna Unknown 09/21/2021 Administered COVID 19 Moderna Unknown 10/20/2021 Administered Problems Problem Type SNOMED Code ICD Code Onset Dates Problem Status W/U Status Risk Notes Problem Streptococcal sore throat (disorder) (41386817) Strep pharyngitis (J02.0) Active confirmed Problem Menorrhagia (260919123) Menorrhagia (N92.0) Active confirmed Problem Abnormal mammogram (479295698) Abnormal mammogram (R92.8) Active confirmed Problem Generalized abdominal pain (079253665) Generalized abdominal pain (R10.84) Active confirmed Problem Mixed anxiety and depressive disorder (966225767) Anxiety and depression (F41.8) Active confirmed Problem Iron deficiency anemia (11141953) Iron deficiency anemia (D50.9) Active confirmed Problem Obese class I (570044433569311) BMI 33.0-33.9,adult (Z68.33) Active confirmed Problem Acute cystitis (93869430) Acute cystitis with hematuria (N30.01) Active confirmed Problem Gastroesophageal reflux disease (930510773) GERD without esophagitis (K21.9) Active confirmed Problem Obese class II (590111870091083) BMI 35.0-35.9,adult (Z68.35) Active confirmed Problem Gastroesophageal reflux disease (361585270) Gastroesophageal reflux disease, esophagitis presence not specified (K21.9) Active confirmed Problem Allergic rhinitis (92588097) Allergic rhinitis (J30.9) Active confirmed Problem Body mass index 40+ - morbidly obese (723460272) BMI 40.0-44.9, adult (Z68.41) Active confirmed Problem Microcytic anemia (175897968) Microcytic anemia (D50.9) Active confirmed Problem Body mass index 30.00 to 34.99 (944393328917641) BMI 34.0-34.9,adult (Z68.34) Active confirmed Problem Dyslipidemia (740657004) Dyslipidemia (E78.5) Active confirmed Problem Pulmonary embolism (34569955) Pulmonary embolism (I26.99) Active confirmed Problem Seasonal allergic rhinitis (209412146) Seasonal allergic rhinitis, unspecified trigger (J30.2) Active confirmed Problem Allergic rhinitis (14431643) Non-seasonal allergic rhinitis, unspecified trigger (J30.89) Active confirmed Problem Allergic rhinitis (39056569) Allergic rhinitis, unspecified seasonality, unspecified trigger (J30.9) Active confirmed Vital Signs Heart Rate 88 /min 04/08/2025 Blood pressure diastolic 84 mm Hg 04/08/2025 Height 64.50 in 04/08/2025 Blood pressure systolic 126 mm Hg 04/08/2025 Weight 215.8 lbs 04/08/2025 BMI 36.47 kg/m2 04/08/2025 Encounters Encounter Location Date Provider Diagnosis [facility] [facility] [facility] [address] [place] [id number] 11/08/2024 Dima [place] Rash R21 ; Dysuria R30.0 and Microscopic hematuria R31.29 [facility] [address] [facility] [address] [place], [place] [phone] 04/08/2025 Lizy Swanson Anxiety and depressi on F41.8 ; Pulmonary embolism I26.99 ; Microcytic anemia D50.9 ; Seasonal allergic rhinitis, unspecified trigger J30.2 ; Dyslipidemia E78.5 ; Iron deficiency anemia D50.9 ; GERD without esophagitis K21.9 ; Acute URI J06.9 and Screening mammogram, encounter for Z12.31 [facility] [address] [facility] [address] [place], [place] [phone] 04/05/2025 Jackelin Joyner [facility] [facility] [address] [place] [id number] 04/08/2025 Lizy Crowdontrell [facility] [address] [facility] [address] [place] [phone] 04/20/2025 Lizy Swanson Assessments Encounter Date Diagnosis (ICD Code) Assessment Notes Treatment Notes Treatment Clinical Notes Section Notes 11/08/2024 Rash (ICD-10 - R21) 11/08/2024 Dysuria (ICD-10 - R30.0) 04/08/2025 Anxiety and depression (ICD-10 - F41.8) 04/08/2025 Pulmonary embolism (ICD-10 - I26.99) 04/08/2025 Microcytic anemia (ICD-10 - D50.9) 11/08/2024 Microscopic hematuria (ICD-10 - R31.29) 04/08/2025 Seasonal allergic rhinitis, unspecified trigger (ICD-10 - J30.2) 04/08/2025 Dyslipidemia (ICD-10 - E78.5) 04/08/2025 Iron deficiency anemia (ICD-10 - D50.9) 04/08/2025 GERD without esophagitis (ICD-10 - K21.9) 04/08/2025 Acute URI (ICD-10 - J06.9) 04/08/2025 Screening mammogram, encounter for (ICD-10 - Z12.31) Plan Of Treatment No Information Insurance Providers Payer Name Payer Address Payer Phone Subscriber Number Group Number Insured Name Patient Relationship to Insured Coverage Start Date Coverage End Date [facility] [address] [place] [address] [id number] Kimani Ramsey Self - patient is the insured Medications Administered Medication Instructions Date of Administration Dosage Notes Depo- Medrol 40 mg/ml 06/10/2012 Dexamethasone 11/10/2009 1 mL Medical (General) History Medical History History ICD Code Allergues Urinary Incontinence Anemia Allergic Rhinitis Anxiety Esophageal Reflux Pulmonary embolus Cologuard - negative 04/2024 Surgical History Surgery Date(Month/Year) Complete Hysterectomy 10/09/2023 Hospitalization History Reason Date(Month/Year) 05/17/23- [facility] ER - Anxiety 05/17/2023
--- OUTSIDE RECORDS SUMMARY | 2025-10-07 01:44 | XMS_ITS | Clinical Summary ---
Author Organization [facility] Address [address] [place] [address] Care Team Providers Care Physicist Nuclear Name Role Phone Gen, Non Staff Referal Provider Primary Care Pro vider Source Comments This information has been disclosed to you from confidential records protectedfrom disclosure by state law. You shall make no further disclosure of thisinformation without the specific, written, and informed release of theindividual to whom it pertains, or as otherwise permitted by law. A generalauthorization for the release of medical or other information is not sufficientfor the purposes of therelease of HIV test results or diagnoses. [id number] Allergies No known active allergies Social History Tobacco Use Types Packs/Day Years Used Date Smoking Tobacco: Never Assessed Comments Unknown Sex and Gender Information Value Date Recorded Sex Assigned at Not on file Legal Sex Female 1:43 PM EDT Gender Identity Not on file Sexual Orientation Not on file Last Filed Vital Signs Vital Sign Reading Time Taken Comments Blood Pressure - - Pulse - - Temperature - - Respiratory Rate - - Oxygen Saturation - - Inhaled Oxygen Concentration - - Weight 93 kg (205 lb) 08/04/2013 3:10 PM EDT Height - - Body Mass Index - - Plan of Treatment Not on file Insurance BLUE [employer]ESS Care Teams Physicist Nuclear Relationship Specialty Start Date End Date Gen, Non Staff Referal Provider [address] [place] [id number] PCP - General 08/04/13
--- OUTSIDE RECORDS SUMMARY | 2025-10-07 01:45 | XMS_ITS | Clinical Summary ---
Author Organization [facility] Address [address] [place] [address] Care Team Providers Care Urologist Physician Name Role Phone Leonel Joyner MD Primary Care Provider [phone] Allergies Active Allergy Reactions Criticality Noted Date Comments Codeine Other - please docum ent in the comment field Low 05/17/2023 Vomiting Peanut-Containing Drug Products Unknown - Patient states they do not know rxn details Low 05/17/2023 Medications Azelastine-Flut icasone 137-50 MCG/ACT suspension Administer 1 spray into affected nostril(s) 2 (two) times a day if needed. Active citalopram (CeleXA) 10 MG tablet Take 1 tablet (10 mg) by mouth 1 (one) time each day. Active esomeprazole (NexIUM) [address] capsule Take 1 capsule (40 mg) by mouth 1 (one) time each day before breakfast. Do not open capsule. Active loratadine-pseu doephedrine ER (Claritin-D 24-hour) 10-240 MG 24 hr tablet Take 1 tablet by mouth 1 (one) time each day. Do not crush, chew, or split. Active apixaban (Eliquis) 5 MG tablet Take 1 tablet (5 mg) by mouth 2 (two) times a day. 60 tablet 1 3 Active Active Problems Problem Noted Date Diagnosed Date Acute pulmonary embolism 05/17/2023 Anxiety 05/17/2023 Anemia 05/17/2023 Non-seasonal allergic rhinitis 05/17/2023 Resolved Problems Problem Noted Date Diagnosed Date Resolved Date Other acute pulmonary emboli sm, unspecified whether acute cor pulmonale present 05/17/202304/25 Family History Medical History Relation Name Comments Cholangitis Father COPD Mother Colon cancer Mother Deep vein thrombosis Paternal Grandfather Relation Name Status Comments Father Mother Paternal Grandfather Social History Tobacco Use Types Packs/Day Years Used Date Smoking Tobacco: Never Smokeless Tobacco: Never Tobacco Cessation:Counseling Given: Not Answered Alcohol Use Standard Drinks/Week Comments Not Currently 0 (1 standard drink = 0.6 oz pure alcohol) Drink alcohol less than once a week PHQ-2 Answer Date Recorded Patient Health Questionnaire-2 Score 0 07/17/2023 CAGE ASSESSMENT Answer Date Recorded Cage unable [...] drink first t devaughn in the morning ([employer]) to steady your nerves or to get rid of a hangover? 0 05/18/2023 CAGE Questionnaire Score 0 023 PHQ-2A Answer Date Recorded Patient Health Questionnaire-2 Score 0 07/17/2023 Comments Unknown Sex and Gender Information Value Date Recorded Sex Assigned at Female 05/17/2023 6:01 PM EDT Legal Sex Female 6:01 PM EDT Gender Identity Female 05/17/2023 6:01 PM EDT Sexual Orientation Not on file Last Filed Vital Signs Vital Sign Reading Time Taken Comments Blood Pressure 126/85 07/17/2023 10:17 AM EDT Pulse 81 07/17/2023 10:17 AM EDT Temperature 36.3 C (97.4 F) 07/17/2023 10:17 AM EDT Respiratory Rate 15 05/22/2023 7:22 AM EDT Oxygen Saturation 96% 05/22/2023 7:22 AM EDT Inhaled Oxygen Concentration - - Weight 85.3 kg (188 lb 0.8 oz) 07/17/2023 10:17 AM EDT Height 162.6 cm (5' 4 ) 07/17/2023 10:17 AM EDT Body Mass Index 32.28 07/17/2023 10:17 AM EDT Plan of Treatment Health Maintenance Due Date Last Done Comments [facility]-/Child/Adol SDOH Screenings 1970 [facility]-Obesity Intervention 1976 [facility]- SDOH Screenings 1988 [facility]-Adult SDOH Screenings 1988 [facility]-DTaP,Tdap,and Td Vaccine s (1 - Tdap) 1989 [facility]-Hepatitis B Vaccines (1 of 3 - 19+ 3-dose series) 1989 [facility]-Pap Smear 1991 [facility]-Cervical Cancer Screening 2000 [facility]-HPV/Cotest 2000 CT Colonography 2015 Colonoscopy 2015 FIT-DNA 2015 FIT 2015 FOBT 2015 Sigmoidoscopy 2015 [facility]-Colorectal Cancer Screening 2015 [facility]-Breast Cancer Screening 2020 [facility]-Pneumococcal Vaccine: 50 + Years (1 of 1 - PCV) 2020 [facility]-Zoster Vaccines (1 of 2) 2020 [facility]-Depression Screening 07/17/2024 07/17/2023 [id number] Vaccine (3 - 2024- season) 2025 10/20/2021, 09/21/2021 [facility]-Influenza Vaccine (#1) 2025 10/04/2023 [facility]-HIV Screening Completed 05/18/2023 [facility]-Hepatitis C Screening Completed 05/18/2023 HPV Vaccines Aged Out No longer eligi ble based on patient's age to complete this topic [facility]-HIB Vaccines Aged Out No longer e ligible based on patient's age to complete this topic [facility]-Hepatitis A Vaccines Aged Out No longer eligible based on patient's age to complete this topic [facility]-IPV Vaccines Aged Out No longer e ligible based on patient's age to complete this topic [facility]-Rotavirus Vaccines Aged Out No lo nger eligible based on patient's age to complete this topic Procedures Procedure Name Priority Date/Time Associated Diagnosis Comments HEPATITIS C ANTIBODY - ED W/REFLEX TO HCV QUANT PCR Routine 05/18/2023 3:56 AM EDT HIV 1/2 ANTIBODY/ANTIGEN SCREEN WITH REFLEX TO HIV I/II DIFFERENTIATION Routine 05/18/2023 3:56 AM EDT from Last 3 Months or Most Recently Relevant to Health Maintenance Results * HIV 1 & 2 Antibody/Antigen Screen (05/18/2023 3:56 AM EDT) HIV 1 & 2 Antibody/Antigen Screen Non Reactive Non Reactive 05/18/2023 4:55 AM EDT [facility] Comment:Screening for HIV 1 & 2 antibodies, and P24 antigen is NONREACTIVE. No confirmatory testing is required. Blood Venous blood specimen / Unknown Venipuncture / Unknown 05/18/2023 3:56 AM EDT 05/18/2023 4:04 AM EDT [facility] BLOOD ORDERABLES Final Result Performing Organization Address City/[facility] Co de Phone Number [facility] [address] [place] [address] * Hepatitis C Antibody - ED (05/18/2023 3:56 AM EDT) Hepatitis C Antibody Negative Negative 05/18/2023 4:55 AM EDT [facility] Blood Venous blood specimen / Unknown Venipuncture / Unknown 05/18/2023 3:56 AM EDT 05/18/2023 4:04 AM EDT [facility] BLOOD ORDERABLES Final Result Performing Organization Address City/[facility] Co de Phone Number [facility] [address] [place] [address] from Last 3 Months or Most Recently Relevant to Health Maintenance Additional Health Concerns Infection Onset Date 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 Yes Care Teams Urologist Physician Relationship Specialty Start Date End Date Leonel Joyner MD [address] [place] [address] PCP - General 05/17/23
[2025-10-07] MEDS: HYDROMORPHONE 2MG/ML SYRINGE 0.5 MG IV (01:52)
[2025-10-07] MEDS: ONDANSETRON 4MG/2ML VIAL 4 MG IV (01:53)
[2025-10-07 01:54] LABS: Microscopic, Urine URINE MICROSCOPIC (MICROSCOPIC)
--- NOTE | 2025-10-07 01:55 | ED_ITS ---
Discharge Plan Disposition Patient Disposition: Xfer Short-Term Hosp Condition: Fair Prescriptions Prescriptions: No Action Eliquis 5 mg tablet 5 mg PO BID ascorbic acid (vitamin C) 250 mg tablet 1,000 mg PO DAILY citalopram 10 mg tablet 10 mg PO DAILY Patient Comments: TAKE ONE TABLET BY MOUTH ONCE DAILY docusate sodium [Colace] 100 mg capsule 100 mg PO DAILY Qty: 30 1RF Allergy and Congestion Relief 10-240 mg tablet extended release 24 hr 1 tab PO DAILY Patient Comments: TAKE ONE TABLET BY MOUTH ONCE DAILY esomeprazole magnesium 40 mg capsule,delayed release(DR/EC) 40 mg PO DAILY Patient Comments: TAKE ONE CAPSULE BY MOUTH EVERY DAY Referrals Follow up/Referrals: Lizy Swanson PA [Primary Care Provider, Medical] - See instructions Clinical Impressions Clinical Impression: Pyelonephritis, Sepsis, Hydronephrosis, Obstruction, uropathy, Hematuria Stand Alone Forms Stand Alone Forms: Transfer Record - ED Instructions Patient Instructions: DI for Acute Abdominal Pain Print Language Print Language: Luxembourgish Discharge ED Provider: Roberto Calzada General Adult HPI General Chief complaint: Abdominal Pain Stated complaint: back pain, pain when urinating, nausea Time Seen by Provider: 10/07/25 01:38 Mode of Arrival: Ambulatory Source of Information: Patient Description of Symptoms (Recalled from ER Triage Doc. by RN): Patient states she has had painful urination since . States in the last hour and a half she has had severe 8/10 pain in the RUQ, and right flank. States pain is horrible. denies N&V. History of Present Illness HPI narrative: 54-year-old female with history of blood clots on daily Eliquis as well as anxiety and seasonal allergies presents to the ER complaining of 1 week of dysuria but 1 to 2 hours of severe right upper quadrant, right flank pain. Patient is now also having frankly bloody urine. She states dysuria started 1 week ago and she was taking [id number] Uristat and thought her symptoms were improving, but tonight she had significant worsening of all of her symptoms including the dysuria, started having hematuria, and is having severe right sided pain as described. No medications prior to arrival. She denies vomiting or diarrhea. No documented fevers. No headache or dizziness, no chest pain or difficulty breathing. No numbness, tingling, or weakness. Reports pain is 8 out of 10 and nonradiating. Related Data Home Medications ?Medication ?Instructions ?Recorded ?Confirmed loratadine-pseudoephedrine ER 10 1 tab PO DAILY Allerg y Symptoms 01/03/23 11/11/23 mg-240 mg tablet,extended [id number] (Allergy and Congestion Relief) esomeprazole magnesium 40 mg 40 mg PO DAILY Acid Reflu x 03/01/23 11/11/23 capsule,delayed release apixaban 5 mg tablet (Eliquis) 5 mg PO BID Blood Thinn er/Hx of PE 05/29/23 11/11/23 ascorbic acid (vitamin C) 250 mg 1,000 mg PO DAILY Sup plement 10/02/23 11/11/23 tablet citalopram 10 mg tablet 10 mg PO DAILY Mood 10/09/23 11/11/23 Previous Rx's ?Medication ?Instructions ?Recorded docusate sodium 100 mg capsule 100 mg PO DAILY #30 cap s 10/11/23 (Colace) Allergies Allergy/AdvReac Type Severity Reaction Status Date / Time codeine (CODEINE) Allergy Severe nausea, Verified 11/11/23 10:20 vomiting peanut (PEANUT) Allergy Intermediate Congested, Verified 11/11/23 10:20 cough PFSH PFSH Disclaimer: The information contained in this section may have been updated after the patient was seen, as this information can be updated by other users. Medical History Abnormal uterine bleeding Chest pain Fibroid, uterine History of pulmonary embolism Menorrhagia Shortness of breath Sinusitis Surgical History H/O lumpectomy H/O splenectomy H/O tubal ligation History of cholecystectomy S/P IMER-BSO (total abdominal hysterectomy and bilateral salpingo-oophorectomy) 10/09/23 Family History Other Family history of aortic valve disorder Family history of cancer Family history of diabetes mellitus Social History Smoking Status: Never smoker alcohol intake: never counseling provided: provider counseling substance use type: denies use current occupational status: employed Travel in the last 8 weeks?: None household members: none Have you lived/traveled outside US in past 30 days?: No Contact w/someone who lives/traveled outside US past 30 days?: No Exposure to someone with infectious disease in past 14 days?: No Do you have a fever (greater than 100.4 F or 38 C)?: No Have you tested positive for COVID-19?: No Exposed to someone with COVID-19 in past 14 days?: No Do you have a sore throat?: No Do you have a cough?: No Do you have any weakness?: No Do you have any diarrhea?: No Are you experiencing any unusual bleeding?: No Do you have any muscle aches/pain?: No Do you have any abdominal pain?: Yes Are you experiencing loss of taste or smell?: No Other Medical History Have you received the Flu Vaccine for this season: No Have you received the Pneumonia Vaccine: No ROS Obtained: Yes Systems reviewed as appropriate & no additional complaints except as documented Per HPI Physical Exam General General appearance: alert and in no apparent distress Comment: Ill-appearing and uncomfortable Head Head exam: atraumatic and normocephalic Eye Eye exam: Present PERRL and EOMI ENT ENT exam: Present mucous membranes moist Neck Neck exam: Present normal inspection and full ROM Chest Chest inspection: Present symmetric chest wall rise Respiratory Respiratory exam: Present normal lung sounds bilaterally; Absent respiratory distress, wheezes or stridor Cardiovascular Cardiovascular exam: Present normal rhythm and tachycardia Abdominal Exam Abdominal exam: Present soft and tenderness (Right upper quadrant); Absent distention, guarding or rebound Extremities Exam Extremities exam: Present full ROM Back Exam Back exam: Present full ROM and CVA tenderness (R); Absent CVA tenderness (L) Neurological Exam Neurological exam: Present alert and oriented X3; Absent motor sensory deficit Psychiatric Psychiatric exam: Present normal affect and normal mood Skin Skin exam: Present warm and dry Medical Decision Making Medical Records Medical records reviewed: Yes I reviewed the patient's medical records. Screening: Per USPSTF and CDC recommendations, given the prevalence of disease in our region, it is our hospital?s policy to screen for HIV and viral Hepatitis for all patients aged 18 and over and those with ongoing risk factors. Russell Inquiry Pt receiving controlled substance: No Vital Signs: 10/07/25 01:49 Temperature 97.9 F Temperature Source Oral Respiratory Rate 17 Blood Pressure [Right Arm] 132/78 Blood Pressure Mean [Right Arm] 96 02 Sat by Pulse Oximetry 98 Oxygen Delivery Method Room Air Lab Data Lab Results 10/07/25 01:48: Urine Color Fischer, Urine Appearance Turbid, Urine pH 6.5, Ur Specific [place] 1.025, Urine Protein 3+ A, Urine Glucose (UA) Negative, Urine Ketones 2+, Urine Blood 2+ A, Urine Nitrate Positive A, Urine Bilirubin 1+ A, Urine Urobilinogen 1.0, Ur Leukocyte Esterase 1+ A, Urine RBC Tntc 10/07/25 02:00: WBC 18.6 H, RBC 5.72 H, Hgb 16.2, Hct 49.1 H, MCV 85.8, MCH 28.3, MCHC 33.0, RDW 17.0, Plt Count 584 H, MPV 9.7, Neut % (Auto) 66.8, Lymph % (Auto) 22.4, Mcintosh % (Auto) 7.9, Eos % (Auto) 1.8, Baso % (Auto) 0.8, Neut # (Auto) 12.4 H, Lymph # (Auto) 4.2, Mcintosh # (Auto) 1.5 H, Eos # (Auto) 0.3, Baso # (Auto) 0.2, PT 11.2, INR 1.01, Sodium 138, Potassium 4.3, Chloride 101, Carbon Dioxide 26, Anion Gap 15.3 H, BUN 13, Creatinine 0.90, Estimated Creat Clear 93, Estimated GFR 65, Est GFR ( Amer) 79, Glucose 104 H, Lactate 0.9, Calcium 10.3 H, Total Bilirubin 0.6, AST 32, ALT 26, Alkaline Phosphatase 93, Total Protein 9.1 H, Albumin 5.0, Globulin 4.1 H, Albumin/Globulin Ratio 1.2 10/07/25 02:00 10/07/25 02:00 Orders (Tests/Meds): ED MEDICATIONS Generic Name Dose Route Start Last Admin Trade Name Freq PRN Reason Stop Dose Admin Ceftriaxone Sodium 2 gm/ 100 mls @ 200 mls/hr 10/07/25 02:15 10/07/25 02:53 Sodium Chloride IV 10/17/25 02:14 Infused Q24H ELIZABETH Infusion Sodium Chloride 1,000 mls @ 125 mls/hr 10/07/25 04:45 10/07/25 04:36 Sod Chlor 0.9% 1000ml Bag IV 11/06/25 04:44 125 mls/hr .Q8H ELIZABETH Administration Miscellaneous 1 each 10/07/25 02:30 Vancomycin Consult Request NOTAPPLIC 11/06/25 02:29 CONSULT PHARMACY ELIZABETH Sodium Chloride 10 ml 10/07/25 02:51 10/07/25 02:52 Sodium Chloride 0.9% 10ml Syr (Rad Only) IV 11/06/25 02:50 10 ml NEEDED PRN Administration Maintain IV Site Discontinued Medications Generic Name Dose Route Start Last Admin Trade Name Freq PRN Reason Stop Dose Admin Diphenhydramine HCl 50 mg 10/07/25 04:00 10/07/25 04:03 Diphenhydramine 50mg/Ml Vial IV 10/07/25 04:01 50 mg ONCE ONE Administration Hydromorphone HCl 0.5 mg 10/07/25 01:46 10/07/25 01:52 Hydromorphone 2mg/Ml Syringe IV 10/07/25 01:47 0.5 mg ONCE ONE Administration Hydromorphone HCl 1 mg 10/07/25 02:29 10/07/25 03:00 Hydromorphone 2mg/Ml Syringe IV 10/07/25 02:30 1 mg ONCE ONE Administration Sodium Chloride 1,000 mls @ 820 mls/hr 10/07/25 02:02 10/07/25 02:58 Sod Chlor 0.9% 1000ml Bag IV 10/07/25 04:02 820 mls/hr .Q1H14M ELIZABETH Administration Vancomycin/PEG/NADA/Lysine/Water 1.5 gm in 300 mls @ 150 mls/hr 10/07/25 02:45 10/07/25 04:03 Vancomycin 1.5gm/300ml (Peg) Premix IV 10/07/25 04:44 0 mls/hr ONCE ONE Infusion Iopamidol 75 ml 10/07/25 02:51 10/07/25 02:51 Iopamidol-370 (76%);100ml Bottle IV 10/07/25 02:52 75 ml ONCE ONE Administration Ondansetron HCl 4 mg 10/07/25 01:46 10/07/25 01:53 Ondansetron 4mg/2ml Vial IV 10/07/25 01:47 4 mg ONCE ONE Administration ORDERS Category Date Time Status CT abdomen pelvis w con Stat Cat Scan 10/07/25 01:40 Completed CBC w/Auto Diff [Complete Blood Count Auto Diff] Stat Lab 10/07/25 02:00 Completed CMP [Comprehensive Metabolic Panel] Stat Lab 10/07/25 02:00 Completed Lactic Acid Stat Lab 10/07/25 02:00 Completed PT INR [Prothrombin Time INR] Stat Lab 10/07/25 02:00 Completed Urinalysis and Microscopic Stat Lab 10/07/25 01:48 Completed Blood Culture Stat Micro 10/07/25 02:01 Received Urine Culture Stat Micro 10/07/25 01:48 Received Medical Decision Narrative: In summary, this 54-year-old female with comorbidities described in the HPI presents to the emergency department today with dysuria, hematuria, right flank pain. On initial evaluation patient is tachycardic but otherwise hemodynamically stable, afebrile, physical exam notable for right upper quadrant tenderness, significant right CVA tenderness, urine at bedside and specimen cup is frankly bloody. Differential diagnosis includes but is not limited to urinary tract infection, pyelonephritis, perinephric abscess, also considered the possibility of nephrolithiasis, ureterolithiasis, hydronephrosis, kidney dysfunction, with patient being tachycardic and ill-appearing I suspect she may be septic. Based on these concerns, I ordered hematologic and serum labs, CT imaging, urinalysis, blood cultures. Patient received Dilaudid, Zofran, 30 mL/kg IBW fluid bolus. Labs personally reviewed demonstrate UA positive for findings of infection. Nitrate positive and leukocyte esterase positive as well as too numerous to count RBCs. Nitrates could be from Uristat use, however given her other symptoms we will treat for infection. CMP nonactionable. Lactate normal. CT abdomen pelvis personally interpreted demonstrates mild right hydronephrosis and enhancement of the ureter consistent with infection, I do not appreciate obvious stone, however I reviewed the radiology read which discusses possible 1 mm stone just proximal to the right UVJ versus other enhancing lesion. See radiology read for full interpretation. Patient required an additional dose of Dilaudid for pain management. I reviewed results with her and recommended transfer to higher level of care for urology for concerns of infected stone versus UTI/pyelo with other ureteral lesion causing hydronephrosis. Patient is agreeable to this. I am reaching out to [facility] and awaiting a callback at this time. Dr. Kirk with urology called back and we discussed this case. He agrees patient would be appropriate for transfer and the urology team will consult. Awaiting a callback from hospitalist at this time. Dr. Bethea with the hospitalist team called back and we discussed this case including management in the ER and the fact that the patient developed some itching with the administration of vancomycin so she has received Benadryl and the rate of administration has been reduced at the recommendation of the pharmacist on-call, Sam. Specifically Sam recommended that the remaining dose of vancomycin to be administered over the next 4 hours. Any future doses should be administered over at least [address] Bethea agrees with the management so far and graciously accepted the patient for transfer to [facility]. Bed assignment provided. Patient is agreeable to transfer. She wanted to go by private vehicle but I explained to her that was not feasible or safe since she is septic and actively receiving IV antibiotics that we will still be running over the next 4 hours due to the reduced rate. She is agreeable to go by ambulance. She will go by [facility] ambulance. Prior to transfer patient started having itching again despite the reduced rate on the vancomycin. It has been stopped. She remains hemodynamically stable, no anaphylaxis. After medication stopped her itching resolved. Will not continue administering this medication at this time. Receiving hospital notified. Pain is currently still controlled. She was reassessed immediately prior to transfer. GCS 15, airway patent, hemodynamically stable. IV fluids still being administered. She is appropriate for transfer and was transferred in stable condition by [facility] ambulance. Procedures Miscellaneous Procedure Procedure Performed: Ultrasound-guided IV Performed by: Roberto Calzada MD Indication: Need for peripheral IV access, multiple failed nursing attempts Consent: Verbal provided by patient after discussion of risks and benefits Procedure details: Area cleaned with alcohol which was allowed to dry prior to procedure. Sterile jelly used and appropriate vessel identified under real-time ultrasound. 18-gauge catheter was placed in the vessel just proximal to the right AC under real-time ultrasound guidance and I directly visualized it entering the vessel. IV draws and flushes. Secured with Tegaderm. Post procedure details: Neurovascularly intact, tolerated procedure well, no complications Critical Care Critical Care Time Critical Care Time: Yes Attestation: On 10/07/25, the high probability of a clinically significant, sudden or life threatening deterioration of the following system(s) required my full and direct attention, intervention and personal management. The time I documented below is in addition to time spent performing reported procedures but includes the following listed in this critical care notation. Total Time Total Critical Care Time: 45
[2025-10-07 02:00] LABS: Color,Urine ORANGE (Yellow); Glucose,Urine (UA) Negative (Negative); Ketones,Urine 2+ (Negative); Leukocyte Esterase,Urine 1+ (Negative); PH,Urine 6.5 (5.0-8.5); Protein,Urine 3+ (Negative); Specific Gravity, Urine 1.025 (1.005-1.030); Urobilinogen,Urine 1.0 EU/dl (0.2)
[2025-10-07 02:02] LABS: Bilirubin,Urine 1+ (Negative)
[2025-10-07 02:03] LABS: RBC,Urine TNTC #/hpf (0-3)
[2025-10-07 02:15] LABS: Hematocrit 49.1 % (37.0-47.0); Hemoglobin 16.2 g/dL (12.2-16.2); Immature Granulocytes % 0.3 %; Mean Corpuscular HGB Conc 33.0 g/dL (31.8-35.4); Mean Corpuscular Hemoglobin 28.3 pg (27.0-31.2); Mean Corpuscular Volume 85.8 fl (81-99); Nucleated Red Blood Cells % 0 %; Platelet Count 584 K/mm3 (142-424); Red Blood Count 5.72 M/mm3 (4.20-5.40); Red Cell Distribution Width-SD 51.8 fL; White Blood Count 18.6 K/mm3 (4.8-10.8)
[2025-10-07 02:24] LABS: INR 1.01 (0.9-1.1); Prothrombin Time 11.2 seconds (10.1-12.5)
[2025-10-07 02:33] LABS: Alanine Aminotransferase 26 U/L (12-78); Albumin Level 5.0 g/dl (3.5-5.0); Albumin/Globulin Ratio 1.2 (1.1-1.8); Alkaline Phosphatase 93 U/L (38-126); Anion Gap 15.3 mEq/L (5-15); Aspartate Amino Transferase 32 U/L (14-36); Bilirubin,Total 0.6 mg/dl (0.2-1.3); Blood Urea Nitrogen 13 mg/dl (7-17); Calcium 10.3 mg/dl (8.4-10.2); Carbon Dioxide 26 mmol/L (22.0-30.0); Chloride 101 mmol/L (98-107); Creatinine Clearance Estimated 93 mL/min (50-200); Creatinine,Serum 0.90 mg/dl (0.52-1.04); Estimated Glomerular Filt Rate 65 ml/min (>60); GFR (African American) 79 ML/MIN (>60); Globulin 4.1 g/dL (1.3-3.2); Glucose 104 mg/dl (74-100); Potassium 4.3 mmoL/L (3.5-5.1); Sodium 138 mmol/L (136-145); Total Protein,Serum 9.1 g/dl (6.3-8.2)
[2025-10-07] MEDS: IOPAMIDOL-370 (76%);100ML BOTTLE 75 ML IV (02:51)
[2025-10-07] MEDS: SODIUM CHLORIDE 0.9% 10ML SYR (RAD ONLY) 10 ML IV (02:52)
[2025-10-07] MEDS: 0.9 % SODIUM CHLORIDE 1000ML 1,000 ML 820 ML IV (02:58)
[2025-10-07] MEDS: HYDROMORPHONE 2MG/ML SYRINGE 1 MG IV (03:00)
[2025-10-07] MEDS: VANCOMYCIN/WATER FOR INJ (PEG) 1.5 GM/300 ML PIGGYBACK IV (03:13)
--- NOTE | 2025-10-07 04:31 | PC.NURSE ---
Patient had a reaction to the Vanc. consulted pharmacy who advised to slow the rate from 150ml/hr, to 50ml/hr. Dr. muñiz also ordered 50mg of Bendryl. After 15-20 min after bendryl dose, i started the vanc at 50ml/hr. Patient began to be itchy again, Dr muñiz advised to stop the infusion.
[2025-10-07] MEDS: 0.9 % SODIUM CHLORIDE 1000ML 1,000 ML 125 ML IV (04:36)
--- NOTE | 2025-10-08 08:56 | PC.NURSE ---
Urine culture results faxed to [facility] 6th floor- [phone]
== END 2025-10-07 05:05 | disposition short-term general hospital (02) ==
PROVIDERS: Emergency Provider Emergency Medicine; PCP Physician Assistant
DX: A41.9 Sepsis, unspecified organism (principal); N12 Tubulo-interstitial nephritis, not specified as acute or chronic; N13.30 Unspecified hydronephrosis
CPT/HCPCS: 74177; 80053; 81001; 83605; 85025; 85610; 87040; 87086; 87088; 87186; 96365; 96366; 96367; 96375; 96376; 99285; J0696; J1171; J1200; J2405; J3375; J7030; J7120; Q9967

== ENCOUNTER 2025-11-23 07:33 | Outpatient (CLI) | payer BC, SELFPAY ==
--- OUTSIDE RECORDS SUMMARY | 2013-08-04 05:45 | XMS_ITS | Continuity of Care Document ---
Author Organization [facility] Address [address] [place] [address] Phone Care Team Providers Care Reinforcing Bar Setter Name Role Phone Baltazar Shin MD Unavailable [...] Copied on Encounter OFFICE/OUTPATI ENT VISIT, EST [facility] , [address], [place], [address], [place] tel:[phone] [facility] Golisa Baltazra. [address] [place], [place], [id number], . tel:[phone] Referring Provider: Tyler Goodman, [address] [facility] [address], [place], [address]. tel:[phone] OFFICE CONSULTATION [facility] , [address] [place], [address], tel:[phone] [facility] Aleida Baltazar. [address] [place], [place], [id number], . tel:[phone] Referring Provider: Tyler Goodman, [address] [facility] [address], [place], [address]. tel:[phone] Family History Family Member Type Diagnosis Age At Onset Grandmother (m) Problem (finding) HBP Multiple Problem (finding) Family history unknown Grandmother (m) Problem (finding) Retinal Disorders Multiple Problem (finding) Maternal history of mukesh betes mellitus Grandmother (m) Problem (finding) degenerative disorde r of macula Multiple Problem (finding) cataract Payers Payer name Insurance type Covered republican ID Monik carlson(s) [facility] [id number] Social History Type Description Quantity Date Captured [...] presumably benigh intracranial lesion. reviwed mri at [facility] and rec repeat mri and if [...]
--- OUTSIDE RECORDS SUMMARY | 2024-06-03 05:00 | XMS_ITS ---
[facility] Address [address] [place] [id number] Care Team Providers Care Launching Pad Mechanic Name Role Phone Jackelin Joyner Primary Care Provider [phone] Godwin Hdez Unavailable [phone] Herminia Marin Unavailable [phone] Allergies No Known Allergies REASON FOR VISIT 6 month f/u, Needs labs, mammogram, colon cancer screening, Tdap, & shingles vaccine Medications Medication SIG (Take, Route, Frequency, Duration) Notes Start Date End Date Status Eliquis 2.5 MG take one tablet by mouth twice daily Orally Two times a day Active Ferrous Sulfate 324 MG 1 tablet Orally o nce daily Active Ascorbic Acid 250 MG 1 tablet Orally Onc e a day Active Dymista 137-50 MCG/ACT 1 spray(s) intranasally 2 times a day; Duration: 90 days Active medroxyPROGESTERone Acetate 10 MG 1 tablet with food Orally Once a day Not-Taking EQL Allergy/Congestion Relief 10-240 MG 1 tablet Orally Once a day; Duration: 90 days Active Esomeprazole Magnesium 40 MG 1 cap(s) or ally once a day; Duration: 90 days Active Montelukast Sodium 10 MG 1 tab(s) orally once a day; Duration: 30 day(s) Not-Taking Citalopram Hydrobromide 10 MG 1 tab(s) orally once a day; Duration: 90 days Active Macrobid 100 MG 1 cap(s) orally 2 times a day; Duration: 7 days 07/25/2022 Not-Taking Problems Problem Type SNOMED Code ICD Code Onset Dates Problem Status W/U Status Risk Notes Problem Microcytic anemia (797500314) Microcytic anemia (D50.9) Active confirmed Problem Dyslipidemia (789219290) Dyslipidemia (E78.5) Active confirmed Problem Obese class I (931324911086026 ) BMI 33.0-33.9,adult (Z68.33) Active confirmed Vital Signs Blood pressure systolic 126 mm Hg 06/03/20 24 Blood pressure diastolic 80 mm Hg 024 Heart Rate 90 /min 06/03/2024 Height 64.50 in 06/03/2024 Weight 198.6 lbs 06/03/2024 BMI 33.56 kg/m2 06/03/2024 Encounters Encounter Location Date Provider Diagnosis [facility] [address] [facility] [address] [facility] [address] [place] [id number] 06/03/2024 Jackelin Joyner Microcytic anemia D5 0.9 ; Dyslipidemia E78.5 ; BMI 33.0-33.9,adult Z68.33 and Pulmonary embolism I26.99 Assessments Encounter Date Diagnosis (ICD Code) Assessment Notes Treatment Notes Treatment Clinical Notes Section Notes 06/03/2024 Microcytic anemia (ICD-10 - D50.9) Repeat CBC in 2 months 06/03/2024 Dyslipidemia (ICD-10 - E78.5) Reinforced low-fat diet 06/03/2024 BMI 33.0-33.9,adult (ICD-10 - Z68.33) Discussed lifestyle modification with diet and aerobic exercise 06/03/2024 Pulmonary embolism (ICD-10 - I26.99) Plan Of Treatment Medication Medication Name Sig Start Date Stop Date Notes Eliquis 2.5 MG take one tablet by m out twice daily Orally Two times a day Ferrous Sulfate 324 MG 1 tablet Orally once daily Treatment Notes Assessment Notes Microcytic anemia Repeat CBC in 2 kerline hs Dyslipidemia Reinforced low-fat d iet BMI 33.0-33.9,adult Discussed lifestyle modification with diet and aerobic exercise Next Appt Details Follow Up: 2 Months, Reason: Progress Notes * Luigi RAMSEYOB:1970 (54 yo F)Acc No.[id number]:06/03/2024 Progress Notes Patient: Kimani FALCON Provider: Jackelin Joyner M.D. :1970 A ge:53 Y S ex:Female Date:06/03/2024 Address:[place], [id number] Subjective: * Chief Complaints: * 1 . 6 month f/u. 2. Needs labs, mammogram, colon cancer screening, Tdap, & shingles vaccine. * HPI: H PI: She returns for scheduled checkup and refills. She had recent blood work for review. C onstitutional: c/o Weight gain P t sts that she has been gradually gaining weight. Pt sts that since she had a hysterectomy she has slowly put weight back on after losing quite a bit prior to surgery. E ndocrinology: Recent Blood Sugars P t would like to discuss her glucose. Pt sts that she knows that her last A1c was 6, but wants to make sure that this should no longer be a concern. G astroenterology: She completed and returned to Cologuard test but has not gotten results as yet. E NT/respiratory: She continues on Eliquis for her history of pulmonary embolus. H ematology: She has a past history of anemia related to menorrhagia that resolved after hysterectomy. She was on iron supplement prior to her hysterectomy but but this was discontinued by her laundry presser after her surgery. Current blood work is continue to show anemia. She denies melena, hematochezia, hematuria. * ROS: C ARDIOLOGY: no C hest pain. n o S hortness of breath. ? G ASTROENTEROLOGY: no N ausea. n o V omiting. n o D iarrhea.? U ROLOGY: no D ifficulty urinating. n o B lood in urine. * Medical History: A llergues, Urinary Incontinence, Anemia, Allergic Rhinitis, Anxiety , Esophageal Reflux, Pulmonary embolus, Cologuard - negative 04/2024. * Surgical History: C omplete Hysterectomy 10/09/2023. * Hospitalization/Major Diagno stic Procedure: H ER - Anxiety 05/17/23, [facility] 05/17/23-05/22/23. * Family History: F ather: alive. M other: alive. P aternal Grand Father: . P aternal Grand Mother: , cancer, lung. M aternal Grand Father: , cancer, prostate. M aternal Grand Mother: , heart disease. 2 daughter(s) - healthy. . * Social History: C URRENT TOBACCO USE S moking Status: Patient does NOT smoke. H ome smoke detector use: yes. Marital Status: . 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 Past smoking status: no. * Medications: T aking Dymista 137-50 MCG/ACT Suspension 1 spray(s) intranasally 2 times a day , Taking Ascorbic Acid 250 MG Tablet 1 tablet Orally Once a day , Taking Eliquis 2.5 MG Tablet take one tablet by mouth twice daily Orally Two times a day , Taking Citalopram Hydrobromide 10 MG Tablet 1 tab(s) orally once a day , Taking Esomeprazole Magnesium 40 MG Capsule Delayed Release 1 cap(s) orally once a day , Taking EQL Allergy/Congestion Relief 10-240 MG Tablet Extended Release 24 Hour 1 tablet Orally Once a day , Not-Taking Montelukast Sodium 10 MG Tablet 1 tab(s) orally once a day , Not-Taking Macrobid 100 MG Capsule 1 cap(s) orally 2 times a day , Not-Taking Ferrous Sulfate 324 MG Tablet Delayed Release 1 tablet Orally every other day , Not- Taking medroxyPROGESTERone Acetate 10 MG Tablet 1 tablet with food Orally Once a day , Medication List reviewed and reconciled with the patient * Allergies: N .K.D.A. Objective: * Vitals: W t:198.6, Temp:97.8, BP:126/80, HR:90, Nurse:GLORY, Ht: 64.50, BMI:33.56. * Examination: G eneral Examination: General Appearance: N AD. Weight gain noted. N shireen: s upple, no lymphadenopathy. H eart: R SR. L ungs: c lear to auscultation.?Extremities: n o leg edema. * Physical Examination: L ABS: See labs L abs reviewed showing microcytic anemia with hemoglobin 10.4, mildly elevated lipids, and normal blood sugar of 96.. Assessment: * Assessment: 1. M icrocytic anemia - D50.9 (Primary) 2 . D yslipidemia - E78.5 ? 3 . B KS 33.0-33.9,adult - Z68.33 4 . P ulmonary embolism - I26.99? Plan: * Treatment: 2. D yslipidemia Notes: Reinforced low-fat diet 3. B KS 33.0-33.9,adult Notes: Discussed lifestyle modification with diet and aerobic exercise 4. P ulmonary embolism Continue Eliquis Tablet, 2.5 MG, take one tablet by mouth twice daily, Orally, Two times a day.? * Follow Up: 2 Months * Images: Billing Information: * Visit Code: 38803 Office Visit, Est Pt., Level 4. * Procedure Codes: * Electronic signature of Jackelin Joyner MD on 11/24/2025 at 07:36 AM EST Sign off status: Pending * Provider: Jackelin Joyner M.D. Date: 0 06/03/2024 Generated for Murali odom/Mari/Ekaterinaitting on: 0 11/24/2025 07:36 AM EST History and Physical Notes * HPI (History of Present Illness) Category Sub-Category Detail Notes Category Not es Endocrinology Recent Blood Sugars Pt would lik e to discuss her glucose. Pt sts that she knows that her last A1c was 6, but wants to make sure that this should no longer be a concern Constitutional Weight gain Pt sts that she has been gradually gaining weight. Pt sts that since she had a hysterectomy she has slowly put weight back on after losing quite a bit prior to surgery Physical Examination Category Sub-Category Detail Notes Section Note s LABS See labs Labs reviewed sh owing microcytic anemia with hemoglobin 10.4, mildly elevated lipids, and normal blood sugar of 96. Examination Category Sub-Category Detail Notes Category Not es General Examination Heart: RSR Lungs: clear to auscultatio n Extremities: no leg edema General Appearance: NAD. Weight gain not ed Neck: supple, no lymphaden opathy
--- OUTSIDE RECORDS SUMMARY | 2024-08-05 10:30 | XMS_ITS ---
Author Organization [facility] Address [address] [facility] [address] [place] [id number] Care Team Providers Care Brush Machine Setter Name Role Phone Jackelin Joyner Primary Care Provider [phone] Godwin Hdez Unavailable [phone] Herminia Marin Unavailable [phone] Allergies No Known Allergies Results Component Value [...] Problem Body mass index 30.00 to 34.99 (720008185177 107) BMI 34.0-34.9,a dult (Z68.34) Active confirmed Vital Signs Blood pressure systolic 126 mm Hg 08/05/20 24 Blood pressure diastolic 90 mm Hg 024 Heart Rate 85 /min 08/05/2024 Height 64.50 in 08/05/2024 Weight 205.6 lbs 08/05/2024 BMI 34.74 kg/m2 08/05/2024 Encounters Encounter Location Date Provider Diagnosis [facility] [address] [facility] [address] [place], [place] [address], [place] [id number] 08/05/2024 R David Joyner Microcytic anemia D50.9 [...] Notes * Luigi RAMSEYOB:1970 (54 yo F)Acc No.[id number]:08/05/2024 Progress Notes Patient: Kimani FALCON Provider: Jackelin Joyner M.D. :1970 A ge:53 Y S ex:Female Date:08/05/2024 Address:[facility] [place], [id number] Subjective: * Chief Complaints: * 1 . [...] detector use: yes. Marital Status: . 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 Past smoking status: no. * Medications: [...] anemia - D50.9 (Primary) 2 . B [place] 34.0-34.9,adult - Z68.34? Plan: * Treatment: Value [...] Procedure Codes: 3 6416 CAPILLARY BLOOD DRAW, 20367 CBC WITH AUTO DIFF * Follow Up: 4 Weeks * Images: Billing Information: * Visit Code: 58807 Office Visit, Est Pt., Level 3. * Procedure Codes: 16447 CAPILLARY BLOOD DRAW. 13677 CBC WITH AUTO DIFF. * Electronic signature of Jackelin Joyner MD on 11/24/2025 at 07:34 AM EST Sign off status: Pending * Provider: Jackelin Joyner M.D. Date: 0 08/05/2024 Generated for Murali odom/Mari/Aimee on: 0 11/24/2025 07:34 AM EST History and Physical Notes * Examination Category Sub-Category Detail Notes Category Not es General Examination Heart: RSR Lungs: clear to auscultatio n General Appearance: NAD
--- OUTSIDE RECORDS SUMMARY | 2024-09-09 11:00 | XMS_ITS ---
Author Organization [facility] Address [address] [place] [id number] Care Team Providers Care Clinical Interviewer Name Role Phone Jakcelin Joyner Primary Care Provider Godwin Hdez Unavailable [phone] Herminia Marin Unavailable [phone] Allergies No Known Allergies REASON FOR VISIT [...] Status Risk Notes Problem Obese class II (166088953875 105) BMI 35.0-35.9,a dult (Z68.35) Active confirmed Vital Signs Blood pressure systolic 128 mm Hg 09/09/20 24 Blood pressure diastolic 86 mm Hg 024 Heart Rate 50 /min 09/09/2024 Height 64.50 in 09/09/2024 Weight 209.6 lbs 09/09/2024 BMI 35.42 kg/m2 09/09/2024 Encounters Encounter Location Date Provider Diagnosis [facility] [address] [place] [phone] 09/09/2024 Jackelin Joyner BMI 35.0-35.9,adult Z68.35 and [...] Notes * Luigi RAMSEYOB:1970 (54 yo F)Acc No.[id number]:09/09/2024 Progress Notes Patient: Kimani FALCON Provider: Jackelin Joyner M.D. :1970 A ge:53 Y S ex:Female Date:09/09/2024 Address:[place], [id number] Subjective: * Chief Complaints: * 1 . [...] detector use: yes. Marital Status: . 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 Past smoking status: no. * Medications: T [...] to auscultation. Assessment: * Assessment: 1. B [place] 35.0-35.9,adult - Z68.35 (Primary) 2 . W eight gain - R63.5 ? Plan: * Treatment: * Follow Up: 1 month * Images: Billing Information: * Visit Code: 17569 Office Visit, Est Pt., Level 3. * Procedure Codes: * Electronic signature of Jackelin Joyner MD on 11/24/2025 at 07:35 AM EST Sign off status: Pending * Provider: Jackelin Joyner M.D. Date: Generated for Murali odom/Mari/Radhasmitting on: 0 11/24/2025 07:35 AM EST History and Physical Notes * Examination Category Sub-Category Detail Notes Category Not es General Examination Heart: RSR Lungs: clear to auscultatio n General Appearance: NAD
--- OUTSIDE RECORDS SUMMARY | 2024-10-14 11:00 | XMS_ITS ---
Author Organization [facility] Address [address] [facility] 36 [facility] [address] [place] [phone] Care Team Providers Care Machine Spring Former Name Role Phone Jackelin Joyner Primary Care Provider Godwin Hdez Unavailable [phone] Herminia Marin Unavailable [phone] REASON FOR VISIT 1 month Encounters Encounter Location Date Provider Diagnosis [facility] [address] [place] [phone] 10/14/2024 Jackelin Joyner Plan Of Treatment No Information Progress Notes * Luigi RAMSEYOB:1970 (54 yo F)Acc No.[id number]:10/14/2024 Progress Notes Patient: Kimani FALCON Provider: Jackelin Joyenr M.D. :1970 A ge:53 Y S ex:Female Date:10/14/2024 Address:[place], [id number] Subjective: * Chief Complaints: * 1 . 1 month. * Medical History: Objective: * Vitals: Assessment: Plan: * Treatment: * Images: Billing Information: * Visit Code: * Procedure Codes: * Electronic signature of Jackelin Joyner MD on 11/24/2025 at 07:36 AM EST Sign off status: Pending * Provider: Jackelin Joyner M.D. Date: 1 12/14/2023 Generated for Murali odom/Mari/Aimee on: 0 11/24/2025 07:36 AM EST
--- OUTSIDE RECORDS SUMMARY | 2024-11-08 11:45 | XMS_ITS ---
Author Organization [facility] Address [address] [place] [id number] Care Team Providers Care Flour Blender Name Role Phone Jackelin Joyner Primary Care Provider [phone] Godwin Hdez Unavailable [phone] Herminia Marin Unavailable [phone] Dima Ramires Unavailable [phone] Allergies No Known Allergies Results Component Value [...] [address] [place], [place] [phone] 11/08/2024 Dima Ramires Rash R21 ; Dysuria [...] Notes * Luigi RAMSEYOB:1970 (54 yo F)Acc No.[id number]:11/08/2024 Progress Notes Patient: Kimani FALCON Provider: Kev Ramires M.D. :1970 A ge:53 Y S ex:Female Date:11/08/2024 Address:[facility] [place], [id number] Pcp:Jackelin Joyner Subjective: * Chief Complaints: * [...] detector use: yes. Marital Status: . 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 Past smoking status: no. * Medications: T [...] * Images: Billing Information: * Visit Code: 87767 Office Visit, Est Pt., Level 3. * Procedure Codes: 60591 Urinalysis, no micro. * Electronic signature of Kate Ramires MD on 11/24/2025 at 07:36 AM EST Sign off status: Pending * Provider: Kev Ramires M.D. Date: 1 01/09/2024 Generated for Printi ng/Mari/eTransmitting on: 0 11/24/2025 07:36 AM EST History [...]
--- OUTSIDE RECORDS SUMMARY | 2025-04-08 04:15 | XMS_ITS ---
[facility] Organization [facility] Address [address] [facility] [address] [place] [id number] Care Team Providers Care Vp & General Counsel Name Role Phone Jackelin Joyner Primary Care Provider Godwin Hdez Unavailable [phone] Herminia Marin Unavailable [phone] Lizy Swanson Unavailable [phone] Allergies No Known Allergies Results Component Value [...] Normal Performing Lab: Notes/Report: Test performed by [facility], [facility] [address] [place] [address] , [address], [place] [address] Jc Salmon MD, Mattress Finisher CLIA: [id number] Sodium 138 135-145 mmol/L Potassium 4.9 3.5-5.3 [...] Normal Performing Lab: Notes/Report: Test performed by [facility] [address] [place] [address] , [address], [place] [address] Jc Salmon MD, Mattress Finisher CLIA: [id number] Ferritin 24.6 13.0-301.0 ng/mL P-Iron Reviewed date:04/20/2025 03:04:49 PM Interpretation: Normal Performing Lab: Notes/Report: Test performed by [facility] [address] [place] [address] , [address], [place] [address] Jc Salmon MD, Mattress Finisher CLIA: [id number] Iron 79 37-145 ug/dL P-Lipid Panel Reviewed date:04/20/2025 03:04:49 PM Interpretation:chol 210, trigs 154, non-hdl 159 Performing Lab: Notes/Report: Test performed by [facility] [employer] [facility] [address] [place] [address] , [address], [place] [address] Jc Salmon MD, Mattress Finisher CLIA: [id number] Cholesterol 210 <200 mg/dL Triglycerides 154 <150 [...] Normal Performing Lab: Notes/Report: Test performed by [facility], [address] , [address], [place] [address] Jc Salmon MD, Mattress Finisher CLIA: [id number] TSH reflex to FT4 1.52 0.43-5.25 mU/L [...] Status Risk Notes Problem Gastroesophageal reflux disease (105906547) GERD without esophagitis (K21.9) Active confirmed Vital Signs Blood pressure systolic 126 mm Hg 04/08/20 25 Blood pressure diastolic 84 mm Hg 025 Heart Rate 88 /min 04/08/2025 Height 64.50 in 04/08/2025 Weight 215.8 lbs 04/08/2025 BMI 36.47 kg/m2 04/08/2025 Encounters Encounter Location Date [facility] [address] [id number] 04/08/2025 Lizy Swanson Anxiety and depressi on [...] Progress Notes * BRAULIOLuigiOB:1970 (54 yo F)Acc No.[id number]:04/08/2025 Progress Notes Patient: Kimani FALCON Provider: JAMAL Cavanaugh :1970 A ge:54 Y S ex:Female Date:04/08/2025 Address:[address] [place] [address] [facility] [id number] Pcp:Jackelin Joyner Subjective: * Chief Complaints: * [...] detector use: yes. Marital Status: . 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 Past smoking status: no. * Medications: [...] Madsen 04/11/2025 8:57:45 AM > faxed to [facility] Scheduling Appt. @ 4:30CrLizy reid 04/21/2025 08:28:47 AM > Please let patient [...] * Images: Billing Information: * Visit Code: 91859 Office Visit, Est Pt., Level 4. * Procedure Codes: 97773 CBC WITH AUTO DIFF. 3074F SYST BP LT 130 MM HG. 3079F DIAST BP 80-89 MM HG. * Electronic signature of JAMAL Gaston on 11/24/2025 at 07:36 AM EST Sign off status: Pending * Provider: JAMAL Cavanaugh Date: 0 04/08/2025 Generated for Murali odom/Mari/eTganeshsmitting on: 0 11/24/2025 07:36 AM EST History [...]
--- OUTSIDE RECORDS SUMMARY | 2025-06-10 06:00 | XMS_ITS ---
Author Organization [facility] Address [address] [facility] [address] [facility] [address] [place] [id number] Care Team Providers Care Global Marketing Intern Name Role Phone Jackelin Joyner Primary Care Provider Godwin Hdez Unavailable [phone] Herminia Marin Unavailable [phone] Lizy Swanson Unavailable [phone] Allergies No Known Allergies REASON FOR VISIT 2 Month Follow Up, Needs shingles vaccine Encounters Encounter Location Date Provider Diagnosis [facility] [address] [facility] [address] [facility] [address] [place] [phone] 06/10/2025 Lizy Swanson Plan Of Treatment No Information Progress Notes * Luigi RAMSEYOB:1970 (54 yo F)Acc No.[id number]:06/10/2025 Progress Notes Patient: Kimani FALCON Provider: JAMAL Cavanaugh :1970 A ge:54 Y S ex:Female Date:06/10/2025 Address:[place], [id number] Pcp:Jackelin Joyner Subjective: * Chief Complaints: * 1 . 2 Month Follow Up. 2. Needs shingles vaccine. * HPI: H PI: 54 year old female presents with c/o Patient is here today for?Pt is here today for a 2 month check up. Pt sts she is doing well and has no ocncerns . ? * ROS: D ERMATOLOGY: no R arlet. [...] 10/09/2023. * Hospitalization/Major Diagno stic Procedure: [facility] - Anxiety 05/17/2023, [facility] 05/17/23-. * [...] detector use: yes. Marital Status: . 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 Past smoking status: no. * Allergies: N .K.D.A. Objective: * Vitals: Assessment: Plan: * Treatment: * Images: Billing Information: * Visit Code: * Procedure Codes: * Electronic signature of JAMAL Gaston on 11/24/2025 at 07:36 AM EST Sign off status: Pending * Provider: JAMAL Cavanaugh Date: 0 06/10/2025 Generated for Murali odom/Mari/Ekaterinaitting on: 0 11/24/2025 07:36 AM EST History and Physical Notes * HPI (History of Present Illness) Category Sub-Category Detail Notes Category Not es HPI Patient is here today for Pt is here today for a 2 month check up. Pt sts she is doing well and has no ocncerns
--- OUTSIDE RECORDS SUMMARY | 2025-10-07 05:52 | XMS_ITS | Encounter Summary ---
Author Organization [employer] ([place], [place], [place], [place], [place]) Address [address] [place] [address] Care Team Providers Care Railroad Dispatcher Name Role Phone Unavailable Primary Care Provider Unavailabl e Reason for Visit * Auth/Cert (Routine) Specialty Diagnoses / Procedures Referred By Swati t Referred To Contact Diagnoses Obstructive uropathy Obstructive Uropathy [facility] [address] [place] [address] Phone: tel: fax: [facility] [address] [place] [address] Phone: tel: fax: Referral ID Status Reason Start Date Expiration Date Visits Re quested Visits Authorized [id number] 1 1 Encounter Details Date Type Department Care Team (Late st Contact Info) Description 10/07/2025 5:52 AM EST - 10/08/2025 5:00 PM EST Hospital Encounter [facility] [address] [place] [address] Asif Child MD [address] [place] [address] Pan Grant MD [address] [place], [place] [id number] Satish Quintero DO [address] [facility] [address] [place] [address] Discharge Disposition: Home or Self Care Social History Tobacco Use Types Packs/Day Years Used Date Smoking Tobacco: Never Assessed Utilities Answer Date Recorded In the past 12 months, has t he electric, gas, oil, or water company threatened to shut off services in your home? No 10/07/2025 Interpersonal Safety Answer Date Record ed How often does anyone, dariusz montaño family and friends, physically hurt you? Never 10/07/2025 How often does anyone, dariusz montaño family and friends, insult or talk down to you? Never 10/07/2025 How often does anyone, dariusz montaño family and friends, threaten you with harm? Never 10/07/2025 How often does anyone, dariusz montaño family and friends, scream or curse at you? Never 10/07/2025 Housing Stability Answer Date Recorded What is your living situation today? I have a [facility] place to live 10/07/[address] you li ve. Do you have problems with any of the following? None of the above 10/07/2025 Food Insecurity Answer Date Recorded Within the past 12 months, y ou worried that your food would run out before you got money to buy more. Never true 10/07/2025 Within the past 12 months, t he food you bought just didn't last and you didn't have money to get more. Never true 10/07/2025 Transportation Needs Answer Date Record ed In the past 12 months, has l ack of reliable transportation kept you from medical appointments, meetings, work or from getting things needed for daily living? No 10/07/2025 Financial Resource Strain Answer Date R ecorded How hard is it for you to pa y for the very basics like food, housing, medical care, and heating? Would you say it is: Not hard at all 10/07/2025 Employment Answer Date Recorded Do you want help finding or keeping work or a job? I do not need or want help 10/07/2025 Family and Community Support Answer Lopez e Recorded If for any reason you need h elp with day-to-day activities such as bathing, preparing meals, shopping, managing finances, etc., do you get the help you need? I don't need any help 10/07/2025 Feeling Lonely or Isolated 0 10/07 Educational Attainment Answer Date Ad rded Do you speak a language other than [employer] [employer] [facility]? No 10/07/2025 Do you want help with school or training? For example, starting or completing job training or getting a high school diploma, GED or equivalent. No 10/07/2025 Physical Activity Answer Date Recorded Number of minutes of exercise per week 0 10/07/2025 Self Management Answer Date Recorded Because of a physical, menta l, or emotional condition, do you have serious difficulty concentrating, remembering, or making decisions? (5 years or older) No 10/07/2025 Because of a physical, menta l, or emotional condition, do you have difficulty doing errands alone such as visiting a doctor's office or shopping? (15 years or older) No 10/07/2025 Substance Use Answer Date Recorded How many times in the past y ear have you used prescription drugs for non-medical reasons? Never 10/07/2025 How many times in the past year have you used il legal drugs? Never 10/07/2025 Mental Health Answer Date Recorded Calculation of above two rows 0 Comments Unknown Sex and Gender Information Value Date Recorded Sex Assigned at Not on file Legal Sex Female 12:47 PM CDT Gender Identity Not on file Sexual Orientation Not on file documented as of this encounter Last Filed Vital Signs Vital Sign Reading Time Taken Comments Blood Pressure 144/74 10/08/2025 4:30 PM EST Pulse 79 10/08/2025 4:30 PM EST Temperature 36.7 C (98.1 F) 10/08/2025 4:30 PM EST Respiratory Rate 16 10/08/2025 4:30 PM EST Oxygen Saturation 95% 10/08/2025 4:30 PM EST Inhaled Oxygen Concentration - - Weight 82.6 kg (182 lb) 10/07/2025 6:07 AM EST Height 162.6 cm (5' 4 ) 10/07/2025 6:07 AM EST Body Mass Index 31.24 10/07/2025 6:07 AM EST documented in this encounter Functional Status * Pain Score Answer Date of Assessment Author 2 10/08/2025 12:36 PM Laura uHa RN * Tidal Volume Answer Date of Assessment Author 320 10/07/2025 6:07 AM Samantha Nettles RN * Shock Index Answer Date of Assessment Author 0.55 10/08/2025 4:30 PM Ashely Hua RN * Mobility Question Answer Date of Assessment Author VTE Risk Score 3 10/08/2025 5:01 PM DIRECTOR OF PRIMARY CARE Epi c, User * Pain Assessment Timer Question Answer Date of Assessment Author Restart Pain Assessment Timer Yes 10/08/2025 12:36 PM Laura Hua RN * Feature 3: Altered Level of Consciousness Answer Date of Assessment Author Negative 10/08/2025 9:00 AM Ashely Hua RN * 2-Grout Pump Operator Skin Assessment Question Answer Date of Assessment Author Has 2-Licensed Skin Assessment been completed? Yes 10/07/2025 6:00 AM Samantha Nettles RN Staff #1 Samantha Oneal RN 10/07/2025 6:00 AM Samantha Nettles RN Staff #2 Yasmin Baltazar RN 10/07/2025 6:00 AM Samantha Nettles RN Skin integrity Skin intact 10/07/2025 6:00 AM Samantha Weeks RN * High Risk of Injury From Falls Question Answer Date of Assessment Author Positive Injury Screen Interventions Gait belt 09/24 5:00 PM Dinora Maher * Physical Activity Question Answer Date of Assessment Author In the last 30 days, other t beltran the activities you did for work, on average, how many days per week did you engage in moderate exercise (like walking fast, running, jogging, dancing, swimming, biking, or other similar activities)? 0 10/07/2025 6:00 AM Samantha Nettles RN On average, how many minutes did you usually spend exercising at this level on one of those days? 0 10/07/2025 6:00 AM Samantha Pulido RN Number of minutes of exercis e per week 0 10/07/2025 6:00 AM Samantha Nettles RN * Intake (mL) Question Answer Date of Assessment Author [address] 10/08/2025 5:00 PM Dinora Nguyen Percent Meals Eaten (%) 80 10/08/2025 5:00 P M Dinora Maher * Cobian Fall Risk Question Answer Date of Assessment Author History of Falling 0 10/08/2025 3:00 PM Laura Hua RN Secondary Diagnosis 15 10/08/2025 3:00 PM Laura Perez RN Ambulatory Aids 0 10/08/2025 3:00 PM Laura Walker RN Intravenous Therapy/Intraven ous Access 20 10/08/2025 3:00 PM Laura Hua RN Gait/Transferring 0 10/08/2025 3:00 PM Laura Hua RN Mental Status 0 10/08/2025 3:00 PM Laura Caldwell RN Score 35 10/08/2025 3:00 PM Laura Lopez RN * Fernando Question Answer Date of Assessment Author Sensory Perceptions 4 10/08/2025 9:00 AM Laura Perez RN Moisture 4 10/08/2025 9:00 AM Laura Lopez RN Activity 4 10/08/2025 9:00 AM Laura Lopez RN Mobility 4 10/08/2025 9:00 AM Laura Lopez RN Nutrition 4 10/08/2025 9:00 AM Laura Lopez RN Friction and Shear 3 10/08/2025 9:00 AM Laura Hua RN Fernando Scale Score 23 10/08/2025 9:00 AM Laura Hua RN * BMI (Calculated) Answer Date of Assessment Author 31.2 10/07/2025 6:07 AM Samantha Nettles RN * R: Pain Location Answer Date of Assessment Author Abdomen 10/08/2025 11:36 AM Laura Hua RN * Pain Intervention(s) Answer Date of Assessment Author Medication (See eMAR) 10/07/2025 3:57 PM Brianne Muñoz RN * R: Pain Location 2 Answer Date of Assessment Author Abdomen 10/07/2025 7:40 PM Brianne Haile RN * Charting Type Question Answer Date of Assessment Author Charting Type Shift assessment 10/08/2025 9:00 AM Laura Hua RN * Discharge Planning Question Answer Date of Assessment Author Living Arrangements Spouse/significant other 10/07/2025 6:00 AM Samantha Nettles RN Support Systems Spouse/significant other;Children;Family members 10/07/2025 6:00 AM Samantha Nettles RN Assistance Needed Denies 10/07/2025 6:0 0 AM Samantha Nettles RN Type of Residence Private residence 10/07/2025 6 :00 AM Samantha Nettles RN Home or Post Acute Services Home/self care 10/07/2025 6:00 AM Samantha Nettles RN Needs Assistance with Transportation No 10/07/2025 9:00 PM Tressa Gutierrez RN Do you have animals or pets at home? Yes 10/07/2025 6:00 AM Samantha Nettles RN Type of Animals or Pets dogs 10/07/20 6:00 AM Samantha Nettles RN Who is requesting discharge planning? Provider 10/07/2025 6:00 AM Samantha Nettles RN * Q: Pain Quality Answer Date of Assessment Author Aching 10/07/2025 7:40 PM Brianne Haile RN * Pain Onset Answer Date of Assessment Author Gradual 10/07/2025 7:40 PM Brianne Haile RN * T: Pain Frequency Answer Date of Assessment Author Intermittent 10/07/2025 7:40 PM Brianne Haile RN * Patient's Stated Comfort Goal Answer Date of Assessment Author No pain 10/07/2025 3:57 PM Brianne Haile RN * Vitals Question Answer Date of Assessment Author Heart Rate Source Monitor/Pulse Ox 10/08/2025 4:30 PM DIRECTOR OF PRIMARY CARE Dinora Frederick * Opioid Sedation Level (POSS) Answer Date of Assessment Author 1 - Awake and Alert 10/07/2025 7:40 PM DIRECTOR OF PRIMARY CARE Brianne Casillas RN * Fall Risk Interventions Question Answer Date of Assessment Author Basic Safety Measures Bed and chair alar ms in use 10/08/2025 5:00 PM DIRECTOR OF PRIMARY CARE Dinora Frederick High Fall Risk Interventions All Basic Safety Interventions in place 10/08/2025 5:00 PM DIRECTOR OF PRIMARY CARE Dinora Frederick Bed/Chair Alarm(s) Bed on 10/07/2025 5: 00 PM DIRECTOR OF PRIMARY CARE Elena Del Cid * ADL Screen Question Answer Date of Assessment Author Difficulty doing errands deb ne such as visiting a doctor's office or shopping No 10/07/2025 6:16 AM Samantha Nettles RN Patient has limitations in a ny activities because of a physical, mental or emotional condition No 10/07/2025 6:16 AM Samantha Nettles RN Patient's Vision Adequate to Safely Complete Daily Activities 1 10/07/2025 6:16 AM Samantha Nettles RN Patient's Judgement Adequate to Safely Complete Daily Activities 1 10/07/2025 6:16 AM Samantha Nettles RN Patient's Memory Adequate to Safely Complete Daily Activities 1 10/07/2025 6:16 AM Samantha Nettles RN Patient Able to Express Needs/Desires 1 10/07/2025 6:16 AM Samantha Nettles RN Dressing Independent 10/07/2025 6:16 AM Samantha Barba RN Grooming Independent 10/07/2025 6:16 AM Samantha Barba RN Feeding Independent 10/07/2025 6:16 AM Samantha Barba RN Bathing Independent 10/07/2025 6:16 AM Samantha Barba RN Toileting Independent 10/07/2025 6:16 AM Samantha Barba RN In/Out Bed Independent 10/07/2025 6:16 AM Samantha Barba RN Walks in Home Independent 10/07/2025 6:16 AM Samantha Pulido RN Weakness of Legs None 10/07/2025 6:16 AM Samantha Maguire RN Weakness of Arms/Hands None 10/07/2025 6:16 AM Samantha Nettles RN Hearing - Right Ear Functional 10/07/2025 6:16 AM CS Samantha Lugo RN Hearing - Left Ear Functional 10/07/2025 6:16 AM Samantha Nettles RN * Assistive Devices Question Answer Date of Assessment Author Assistive Devices Dentures upper;Dentu res lower 10/07/2025 6:16 AM Samantha Nettles RN * Sepsis Huddle Question Answer Date of Assessment Author Screen Outcome Not treating for sepsis 10/08/2025 2:55 PM Laura Hua RN * Restart Vitals Timer Answer Date of Assessment Author Yes 10/08/2025 4:30 PM Ashely Hua RN * Pain Type Answer Date of Assessment Author Acute pain 10/08/2025 11:36 AM Laura Hua RN * Response to Interventions Answer Date of Assessment Author Not changed 10/07/2025 3:57 PM Brianne Haile RN * Pain Assessment Scale Answer Date of Assessment Author 0-10 10/07/2025 7:40 PM Brianne Haile RN * Nutrition Question Answer Date of Assessment Author Diet Type Diet (see order) 10/08/2025 5:00 PM DIRECTOR OF PRIMARY CARE Dinora Medel Feeding Able to feed self 10/08/2025 5:00 PM DIRECTOR OF PRIMARY CARE Dinora Frederick * HEENT Question Answer Date of Assessment Author R Eye Intact 10/08/2025 9:00 AM Laura Lopez RN L Eye Intact 10/08/2025 9:00 AM Laura Lopez RN R Ear Intact 10/08/2025 9:00 AM Laura Lopez RN L Ear Intact 10/08/2025 9:00 AM Laura Lopez RN Nose Intact 10/08/2025 9:00 AM Laura Lopez RN Throat Intact 10/08/2025 9:00 AM Laura Lopez RN Tongue [place] & moist 10/08/2025 9:00 AM Laura Lopez RN Mucous Membrane(s) Moist;[place];Intact 10/08/2025 9:00 A M Laura Hua RN Teeth Missing teeth;Dentur es upper;Dentures lower 10/08/2025 9:00 AM Laura Hua RN Head and Face Symmetrical 10/08/2025 9:00 AM Laura Caldwell RN Lips Intact 10/08/2025 9:00 AM Laura Lopez RN HEENT (WDL) X 10/08/2025 9:00 AM Laura Lopez RN Denture Status Intact 10/07/2025 9:00 PM Tressa Ernst RN * Sedation Scales Question Answer Date of Assessment Author Singleton Agitation Sedation Scale (RASS) 0 10/08/2025 9:00 AM Laura Hua RN * Pain Assesment Question Answer Date of Assessment Author R: Pain Orientation Right 10/07/2025 6:07 AM Samantha Horton RN * Pain Assessment Scale Answer Date of Assessment Author 0-10 10/08/2025 11:36 AM Laura Hua RN * Integumentary Question Answer Date of Assessment Author 2-Grout Pump Operator Skin Assessment complete 10/07/2025 9:00 PM Lori Gutierrez RN Integumentary (WDL) WDL 10/08/2025 9:00 AM Laura Perez RN * Sepsis Screening Question Answer Date of Assessment Author Is there a suspected infection? Yes 10/08/2025 2:55 PM Laura Hua RN Are there risk factors of infection present/new? Current infection present/suspected 10/08/2025 2:55 PM Laura Hua RN Sepsis Escalation Criteria WBC greater than 12 k/mcL OR less than 4 k/mcl 10/08/2025 2:55 PM Laura Hua RN * Vital Signs Question Answer Date of Assessment Author BP 144/74 10/08/2025 4:30 PM Laura Lopez RN Temp 98.1 10/08/2025 4:30 PM Laura Lopez RN Temp src Oral 10/08/2025 4:30 PM Laura Lopez RN Pulse 79 10/08/2025 4:30 PM Laura Lopez RN Resp 16 10/08/2025 4:30 PM Laura Lopez RN BP Location Right arm 10/08/2025 4:30 PM Laura Lopez RN BP Method Automatic 10/08/2025 4:30 PM Laura Lopez RN MAP (mmHg) 92 10/08/2025 4:30 PM Laura Lopez RN Patient Position Lying 10/08/2025 4:30 PM Laura Wesley RN * Oxygen Therapy Question Answer Date of Assessment Author SpO2 95 10/08/2025 4:30 PM Laura Lopez RN * Height and Weight Question Answer Date of Assessment Author Height 64 10/07/2025 6:07 AM Samantha Barba RN Weight 2912 10/07/2025 6:07 AM Samantha Barba RN * Respiratory Question Answer Date of Assessment Author Bilateral Breath Sounds Clear 10/08/20 9:00 AM Laura Hua RN Respiratory Effort Unlabored 10/08/2025 9: 00 AM Laura Hua RN Respiratory Depth/Rhythm Regular 10/08/2025 9:00 AM Laura Hua RN Dyspnea Occurrence At rest;None 10/08/2025 9: 00 AM Laura Hua RN Respiratory (WDL) WDL 10/08/2025 9:0 0 AM Laura Hua RN Chest Assessment Symmetrical;Chest expansion symmetrical 10/08/2025 9:00 AM Laura Hua RN * Gastrointestinal Question Answer Date of Assessment Author Last BM Date [address] 10/07/2025 6:00 AM Samantha Nettles RN Passing Flatus Yes 10/07/2025 9:00 PM Tressa Gutierrez RN Tenderness Soft;Nontender 10/08/2025 9:00 AM Laura Hua RN Bowel Sounds (All Quadrants) Active 10/08/2025 9:00 AM Laura Hua RN Abdomen Inspection Soft;Nondistended 10/08/2025 9:00 AM Laura Hua RN Bowel Incontinence No 10/07/2025 9: 00 PM Tressa Gutierrez RN Bowel Sounds All quadrants 10/08/2025 9:00 AM Laura Hua RN Gastrointestinal ([facility]) [facility] 9:00 AM Laura Hua RN * Peripheral Vascular Question Answer Date of Assessment Author Peripheral Vascular ([facility]) [facility] 10/08/2025 9:00 AM Laura Hua RN * Musculoskeletal Question Answer Date of Assessment Author Musculoskeletal ([facility]) [facility] 10/08/2025 9:00 AM Laura Hua RN * Psychosocial Question Answer Date of Assessment Author Psychosocial ([facility]) [facility] 10/08/2025 9:00 AM Laura Hua RN * Pain Score 2 Answer Date of Assessment Author 0 - No pain 10/07/2025 4:55 PM Brianne Haile RN * Cardiac Question Answer Date of Assessment Author Cardiac Regularity Regular 10/08/2025 9:00 AM Laura Hua RN Pacemaker No 10/08/2025 9:00 AM Laura Lopez RN Heart Sounds S1, S2 10/08/2025 9:00 AM Laura Lopez RN Telemetry/Hot Tar Roofer Helper No 10/08/2025 9:00 AM Laura Hua RN Jugular Venous Distention (JVD) No 10/08/2025 9:00 AM Laura Hua RN Cardiac Symptoms Asymptomatic 10/08/2025 9:00 AM Laura Wesley RN Cardiac ([facility]) WDL 10/08/2025 9:00 AM Laura Caldwell RN * Genitourinary Question Answer Date of Assessment Author Urinary Incontinence No 10/08/2025 9:00 AM Laura Sampson RN Genitourinary Symptoms Burning;Excessive passage of urine;Increased frequency;Urgency 10/07/2025 8:00 AM Brianne Haile RN Genitourinary Additional Assessments No 10/07/2025 9:00 PM Tressa Gutierrez RN Suprapubic Tenderness No 10/08/2025 9:00 AM Laura Hua RN Genitourinary (WD) WDL 10/08/2025 9:00 AM Laura Perez RN * Neurological Question Answer Date of Assessment Author Level of Consciousness Alert 9:00 AM Laura Hua RN Orientation Level Oriented X4 10/08/2025 9:0 0 AM Laura Hua RN Cognition Appropriate judgement;Follows commands 10/08/2025 9:00 AM Laura Hua RN Speech Clear;Appropriate fo r developmental age 1110/08/2025 9:00 AM Laura Hua RN Swallow Able to swallow jacque ds and liquids without difficulty 10/08/2025 9:00 AM Laura Hua RN Neuro Symptoms None 10/07/2025 9:00 PM Tressa Gutierrez RN Neuro ([facility]) WDL 10/08/2025 9:00 AM Laura Hua RN * Mobility Question Answer Date of Assessment Author BMAT Score Level 4 10/08/2025 3:00 PM Laura Lopez RN Activity Resting in bed 10/08/2025 5:00 PM Dinora Costa Repositioned Turns self 10/08/2025 5:00 PM Dinora Nguyen Level of Assistance Modified independent , requires aide device or extra time 10/08/2025 5:00 PM Dinora Maher Head of Bed Elevated Self regulated 10/08/2025 5:00 PM Dinora Maher Positioning Frequency Able to turn self 10/08/2025 5:0 0 PM Dinora Maher * Entertainment Question Answer Date of Assessment Author Entertainment Activities Television 10/08/2025 5:00 PM DIRECTOR OF PRIMARY CARE Dinora Frederick * Urine Output/Assessment Question Answer Date of Assessment Author Urine Amount Unable to assess 10/08/2025 5:00 AM DIRECTOR OF PRIMARY CARE Kari Eli RN Urine Color [place] 10/08/2025 5:00 AM Kari Benedict RN Urine Appearance Unable to assess 10/08/2025 5:00 AM Kari Andrews RN Urine Odor [place] 10/08/2025 5:00 AM Kari Benedict RN Urine Occurrence 1 10/08/2025 4:00 PM DIRECTOR OF PRIMARY CARE Laura Stoll RN * Safe Environment Question Answer Date of Assessment Author Side Rails/Bed Safety 01/2510/08/2025 5:00 PM Dinora Maher The Patient's Environment is Safe Yes 025 5:00 PM Dinora Maher Arm Bands On ID;Fall 10/08/2025 5:00 PM DIRECTOR OF PRIMARY CARE Dinora Motta * Precautions Question Answer Date of Assessment Author Precautions Fall 10/08/2025 5:00 PM DIRECTOR OF PRIMARY CARE Dinora Motta * Family/Significant Other Communication Question Answer Date of Assessment Author Family/Significant Other Update Visiting 5:00 PM Dinora Maher * High Risk of Injury From Falls Question Answer Date of Assessment Author Positive Injury Screen Interventions Gait belt 09/24 5:00 PM Dinora Maher * Cobian Fall Risk Question Answer Date of Assessment Author History of Falling 0 10/08/2025 3:00 PM Laura Hua RN Secondary Diagnosis 15 10/08/2025 3:00 PM CS T Laura Kulkarni RN Ambulatory Aids 0 10/08/2025 3:00 PM DIRECTOR OF PRIMARY CARE Laura Stewart RN Intravenous Therapy/Intraven ous Access 20 10/08/2025 3:00 PM Laura Hua RN Gait/Transferring 0 10/08/2025 3:00 PM Laura Hua RN Mental Status 0 10/08/2025 3:00 PM Laura Caldwell RN Score 35 10/08/2025 3:00 PM Laura Lopez RN * Fernando Question Answer Date of Assessment Author Sensory Perceptions 4 10/08/2025 9:00 AM CS T Laura Kulkarni RN Moisture 4 10/08/2025 9:00 AM Laura Lopez RN Activity 4 10/08/2025 9:00 AM Laura Lopez RN Mobility 4 10/08/2025 9:00 AM Laura Lopez RN Nutrition 4 10/08/2025 9:00 AM Laura Lopez RN Friction and Shear 3 10/08/2025 9:00 AM Laura Hua RN Fernando Scale Score 23 10/08/2025 9:00 AM Laura Hua RN * BMI (Calculated) Answer Date of Assessment Author 31.2 10/07/2025 6:07 AM Samantha Nettles RN * Discharge Planning Question Answer Date of Assessment Author Living Arrangements Spouse/significant other 10/07/2025 6:00 AM Samantha Nettles RN Support Systems Spouse/significant other;Children;Family members 10/07/2025 6:00 AM Samantha Nettles RN Assistance Needed Denies 10/07/2025 6:0 0 AM Samantha Nettles RN Type of Residence Private residence 10/07/2025 6 :00 AM Samantha Nettles RN Home or Post Acute Services Home/self care 10/07/2025 6:00 AM Samantha Nettles RN Needs Assistance with Transportation No 10/07/2025 9:00 PM Tressa Gutierrez RN Do you have animals or pets at home? Yes 10/07/2025 6:00 AM Samantha Nettles RN Type of Animals or Pets dogs 10/07/20 6:00 AM Samantha Nettles RN Who is requesting discharge planning? Provider 10/07/2025 6:00 AM Samantha Nettles RN * Fall Risk Interventions Question Answer Date of Assessment Author Basic Safety Measures Bed and chair alar ms in use 10/08/2025 5:00 PM DIRECTOR OF PRIMARY CARE Dinora Frederick High Fall Risk Interventions All Basic Safety Interventions in place 10/08/2025 5:00 PM DIRECTOR OF PRIMARY CARE Dinora Frederick Bed/Chair Alarm(s) Bed on 10/07/2025 5: 00 PM Elena Holly * ADL Screen Question Answer Date of Assessment Author Difficulty doing errands deb ne such as visiting a doctor's office or shopping No 10/07/2025 6:16 AM Samantha Nettles RN Patient has limitations in a ny activities because of a physical, mental or emotional condition No 10/07/2025 6:16 AM Samantha Nettles RN Patient's Vision Adequate to Safely Complete Daily Activities 1 10/07/2025 6:16 AM Samantha Nettles RN Patient's Judgement Adequate to Safely Complete Daily Activities 1 10/07/2025 6:16 AM Samantha Nettles RN Patient's Memory Adequate to Safely Complete Daily Activities 1 10/07/2025 6:16 AM Samantha Nettles RN Patient Able to Express Needs/Desires 1 10/07/2025 6:16 AM Samantha Nettles RN Dressing Independent 10/07/2025 6:16 AM Samantha Barba RN Grooming Independent 10/07/2025 6:16 AM Samantha Barba RN Feeding Independent 10/07/2025 6:16 AM Samantha Barba RN Bathing Independent 10/07/2025 6:16 AM Samantha Barba RN Toileting Independent 10/07/2025 6:16 AM Samantha Barba RN In/Out Bed Independent 10/07/2025 6:16 AM Samantha Barba RN Walks in Home Independent 10/07/2025 6:16 AM Samantha Pulido RN Weakness of Legs None 10/07/2025 6:16 AM Samantha Maguire RN Weakness of Arms/Hands None 10/07/2025 6:16 AM Samantha Nettles RN Hearing - Right Ear Functional 10/07/2025 6:16 AM Samantha Horton RN Hearing - Left Ear Functional 10/07/2025 6:16 AM Samantha Nettles RN * Assistive Devices Question Answer Date of Assessment Author Assistive Devices Dentures upper;Dentu res lower 10/07/2025 6:16 AM Samantha Nettles RN * Sedation Scales Question Answer Date of Assessment Author Singleton Agitation Sedation Scale (RASS) 0 10/08/2025 9:00 AM Laura Hua RN * Vital Signs Question Answer Date of Assessment Author BP 144/74 10/08/2025 4:30 PM Laura Lopez RN Pulse 79 10/08/2025 4:30 PM Laura Lopez RN Resp 16 10/08/2025 4:30 PM Laura Lopez RN * Oxygen Therapy Question Answer Date of Assessment Author SpO2 95 10/08/2025 4:30 PM Laura Lopez RN * Neurological Question Answer Date of Assessment Author Level of Consciousness Alert 10/08/2025 9:00 AM Laura Hua RN * Mobility Question Answer Date of Assessment Author BMAT Score Level 4 10/08/2025 3:00 PM Laura Lopez RN Activity Resting in bed 10/08/2025 5:00 PM Dinora Costa Repositioned Turns self 10/08/2025 5:00 PM Dinora Nguyen Level of Assistance Modified independent , requires aide device or extra time 10/08/2025 5:00 PM Dinora Maher Head of Bed Elevated Self regulated 10/08/2025 5:00 PM Dinora Maher Positioning Frequency Able to turn self 10/08/2025 5:0 0 PM Dinora Maher * Family/Significant Other Communication Question Answer Date of Assessment Author Family/Significant Other Update Visiting 5:00 PM Dinora Maher documented as of this encounter Mental Status * Pain Score Answer Entry Date Author 2 10/08/2025 12:36 PM Laura Hua RN * Tidal Volume Answer Entry Date Author 320 10/07/2025 6:07 AM Samantha Nettles RN * Shock Index Answer Entry Date Author 0.55 10/08/2025 4:30 PM Ashely Hua RN * Feature 3: Altered Level of Consciousness Answer Entry Date Author Negative 10/08/2025 9:00 AM Ashely Hua RN * 2-Grout Pump Operator Skin Assessment Question Answer Entry Date Author Has 2-Licensed Skin Assessment been completed? Yes 10/07/2025 6:00 AM Samantha Nettles RN Staff #1 Samantha Oneal RN 10/07/2025 6:0 0 AM Samantha Nettles RN Staff #2 Yasmin Baltazar RN 10/07/2025 6: 00 AM Samantha Nettles RN Skin integrity Skin intact 10/07/2025 6:00 AM Samantha Nettles RN * High Risk of Injury From Falls Question Answer Entry Date Author Positive Injury Screen Interventions Gait belt 09/24 5:00 PM DIRECTOR OF PRIMARY CARE Dinora Frederick * Cobian Fall Risk Question Answer Entry Date Author History of Falling 0 10/08/2025 3:00 PM Laura Hua RN Secondary Diagnosis 15 10/08/2025 3:00 PM Laura Perez RN Ambulatory Aids 0 10/08/2025 3:00 PM Laura Walker RN Intravenous Therapy/Intraven ous Access 20 10/08/2025 3:00 PM Laura Hua RN Gait/Transferring 0 10/08/2025 3:00 PM Laura Hua RN Mental Status 0 10/08/2025 3:00 PM Laura Caldwell RN Score 35 10/08/2025 3:00 PM Laura Lopez RN * Fernando Question Answer Entry Date Author Sensory Perceptions 4 10/08/2025 9:00 AM Laura Perez RN Moisture 4 10/08/2025 9:00 AM Laura Lopez RN Activity 4 10/08/2025 9:00 AM Laura Lopez RN Mobility 4 10/08/2025 9:00 AM Laura Lopez RN Nutrition 4 10/08/2025 9:00 AM Laura oLpez RN Friction and Shear 3 10/08/2025 9:00 AM Laura Hua RN Fernando Scale Score 23 10/08/2025 9:00 AM Laura Hua RN * BMI (Calculated) Answer Entry Date Author 31.2 10/07/2025 6:07 AM Samantha Nettles RN * R: Pain Location Answer Entry Date Author Abdomen 10/08/2025 11:36 AM Laura Hua RN * Pain Intervention(s) Answer Entry Date Author Medication (See eMAR) 10/07/2025 3:57 PM Brianne Muñoz RN * R: Pain Location 2 Answer Entry Date Author Abdomen 10/07/2025 7:40 PM Brianne Haile RN * Charting Type Question Answer Entry Date Author Charting Type Shift assessment 10/08/2025 9:00 AM Laura Hua RN * Discharge Planning Question Answer Entry Date Author Living Arrangements Spouse/significant other 10/07/2025 6:00 AM Samantha Nettles RN Support Systems Spouse/significant other;Children;Family members 10/07/2025 6:00 AM Samantha Nettles RN Assistance Needed Denies 10/07/2025 6:0 0 AM Samantha Nettles RN Type of Residence Private residence 10/07/2025 6 :00 AM Samantha Nettles RN Home or Post Acute Services Home/self care 09/24 6:00 AM Samantha Nettles RN Needs Assistance with Transportation No 10/07/2025 9:00 PM Tressa Gutierrez RN Do you have animals or pets at home? Yes 10/07/2025 6:00 AM Samantha Nettles RN Type of Animals or Pets dogs 10/07/20 6:00 AM Samantha Nettles RN Who is requesting discharge planning? Provider 10/07/2025 6:00 AM Samantha Nettles RN * Q: Pain Quality Answer Entry Date Author Aching 10/07/2025 7:40 PM Brianne Haile RN * Pain Onset Answer Entry Date Author Gradual 10/07/2025 7:40 PM Brianne Haile RN * T: Pain Frequency Answer Entry Date Author Intermittent 10/07/2025 7:40 PM Brianne Haile RN * Patient's Stated Comfort Goal Answer Entry Date Author No pain 10/07/2025 3:57 PM Brianne Haile RN * Vitals Question Answer Entry Date Author Heart Rate Source Monitor/Pulse Ox 10/08/2025 4:30 PM Dinora Maher * Opioid Sedation Level (POSS) Answer Entry Date Author 1 - Awake and Alert 10/07/2025 7:40 PM Brianne Munoz RN * Fall Risk Interventions Question Answer Entry Date Author Basic Safety Measures Bed and chair alar ms in use 10/08/2025 5:00 PM DIRECTOR OF PRIMARY CARE Dinora Frederick High Fall Risk Interventions All Basic Safety Interventions in place 10/08/2025 5:00 PM DIRECTOR OF PRIMARY CARE Dinora Frederick Bed/Chair Alarm(s) Bed on 10/07/2025 5: 00 PM DIRECTOR OF PRIMARY CARE Elena Del Cid * ADL Screen Question Answer Entry Date Author Difficulty doing errands deb ne such as visiting a doctor's office or shopping No 10/07/2025 6:16 AM Samantha Nettles RN Patient has limitations in a ny activities because of a physical, mental or emotional condition No 10/07/2025 6:16 AM Samantha Nettles RN Patient's Vision Adequate to Safely Complete Daily Activities 1 10/07/2025 6:16 AM Samantha Nettles RN Patient's Judgement Adequate to Safely Complete Daily Activities 1 10/07/2025 6:16 AM Samantha Nettles RN Patient's Memory Adequate to Safely Complete Daily Activities 1 10/07/2025 6:16 AM Samantha Nettles RN Patient Able to Express Needs/Desires 1 10/07/2025 6:16 AM Samantha Nettles RN Dressing Independent 10/07/2025 6:16 AM Samantha Barba RN Grooming Independent 10/07/2025 6:16 AM Samantha Barba RN Feeding Independent 10/07/2025 6:16 AM Samantha Barba RN Bathing Independent 10/07/2025 6:16 AM Samantha Barba RN Toileting Independent 10/07/2025 6:16 AM Samantha Barba RN In/Out Bed Independent 10/07/2025 6:16 AM Samantha Barba RN Walks in Home Independent 10/07/2025 6:16 AM DIRECTOR OF PRIMARY CARE Samantha Thorne RN Weakness of Legs None 10/07/2025 6:16 AM DIRECTOR OF PRIMARY CARE S pencerSamantha RN Weakness of Arms/Hands None 10/07/2025 6:16 AM Samantha Nettles RN Hearing - Right Ear Functional 10/07/2025 6:16 AM CS T Samantha Oneal RN Hearing - Left Ear Functional 10/07/2025 6:16 AM Samantha Nettles RN * Assistive Devices Question Answer Entry Date Author Assistive Devices Dentures upper;Dentu res lower 10/07/2025 6:16 AM Samantha Nettles RN * Pain Type Answer Entry Date Author Acute pain 10/08/2025 11:36 AM Laura Hua RN * Response to Interventions Answer Entry Date Author Not changed 10/07/2025 3:57 PM Brianne Haile RN * Pain Assessment Scale Answer Entry Date Author 0-10 10/07/2025 7:40 PM Brianne Haile RN * HEENT Question Answer Entry Date Author R Eye Intact 10/08/2025 9:00 AM Laura Hua RN L Eye Intact 10/08/2025 9:00 AM Laura Hua RN R Ear Intact 10/08/2025 9:00 AM Laura Hua RN L Ear Intact 10/08/2025 9:00 AM Laura Hua RN Nose Intact 10/08/2025 9:00 AM Laura Hua RN Throat Intact 10/08/2025 9:00 AM Laura Hua RN Tongue [place] & moist 10/08/2025 9:00 AM Laura Hua RN Mucous Membrane(s) Moist;[place];Intact 10/08/2025 9:00 AM Laura Hua RN Teeth Missing teeth;Dentur es upper;Dentures lower 10/08/2025 9:00 AM Laura Hua RN Head and Face Symmetrical 10/08/2025 9:00 AM Laura Hua RN Lips Intact 10/08/2025 9:00 AM Laura Hua RN HEENT (WDL) X 10/08/2025 9:00 AM Laura Hua RN Denture Status Intact 10/07/2025 9:00 PM Tressa Gutierrez RN * Sedation Scales Question Answer Entry Date Author Singleton Agitation Sedation Scale (RASS) 0 10/08/2025 9:00 AM Laura Hua RN * Pain Assesment Question Answer Entry Date Author R: Pain Orientation Right 10/07/2025 6:07 AM Samantha Horton RN * Pain Assessment Scale Answer Entry Date Author 0-10 10/08/2025 11:36 AM Laura Hua RN * Integumentary Question Answer Entry Date Author 2-Grout Pump Operator Skin Assessment complete 10/07/2025 9:00 PM Lori Gutierrez RN Integumentary (WDL) WDL 10/08/2025 9:00 AM Laura Perez RN * Vital Signs Question Answer Entry Date Author BP 144/74 10/08/2025 4:30 PM Laura Lopez RN Temp 98.1 10/08/2025 4:30 PM Laura Lopez RN Temp src Oral 10/08/2025 4:30 PM Laura Lopez RN Pulse 79 10/08/2025 4:30 PM Laura Lopez RN Resp 16 10/08/2025 4:30 PM Laura Lopez RN BP Location Right arm 10/08/2025 4:30 PM Laura Lopez RN BP Method Automatic 10/08/2025 4:30 PM Laura Lopez RN MAP (mmHg) 92 10/08/2025 4:30 PM Laura Lopez RN Patient Position Lying 10/08/2025 4:30 PM Laura Wesley RN * Oxygen Therapy Question Answer Entry Date Author SpO2 95 10/08/2025 4:30 PM Laura Lopez RN * Height and Weight Question Answer Entry Date Author Height 64 10/07/2025 6:07 AM Samantha Barba RN Weight 2912 10/07/2025 6:07 AM Samantha Barba RN * Respiratory Question Answer Entry Date Author Bilateral Breath Sounds Clear 10/08/20 9:00 AM Laura Hua RN Respiratory Effort Unlabored 10/08/2025 9: 00 AM Laura Hua RN Respiratory Depth/Rhythm Regular 025 9:00 AM Laura Hua RN Dyspnea Occurrence At rest;None 10/08/2025 9: 00 AM Laura Hua RN Respiratory (WDL) WDL 10/08/2025 9:0 0 AM Laura Hua RN Chest Assessment Symmetrical;Chest expansion symmetrical 10/08/2025 9:00 AM Laura Hua RN * Gastrointestinal Question Answer Entry Date Author Last BM Date [address]69[address] 10/07/2025 6:00 AM Samantha Netltes RN Passing Flatus Yes 10/07/2025 9:00 PM Tressa Gutierrez RN Tenderness Soft;Nontender 10/08/2025 9:00 AM Laura Hua RN Bowel Sounds (All Quadrants) Active 9:00 AM Laura Hua RN Abdomen Inspection Soft;Nondistended 10/08/2025 9:00 AM Laura Hua RN Bowel Incontinence No 10/07/2025 9: 00 PM Tressa Gutierrez RN Bowel Sounds All quadrants 10/08/2025 9:00 AM Laura Hua RN Gastrointestinal ([facility]) WD 9:00 AM Laura Hua RN * Peripheral Vascular Question Answer Entry Date Author Peripheral Vascular ([facility]) [facility] 10/08/2025 9:00 AM Laura Hua RN * Musculoskeletal Question Answer Entry Date Author Musculoskeletal ([facility]) [facility] 10/08/2025 9:00 AM Laura Hua RN * Psychosocial Question Answer Entry Date Author Psychosocial ([facility]) [facility] 10/08/2025 9:00 AM Laura Hua RN * Cardiac Question Answer Entry Date Author Cardiac Regularity Regular 10/08/2025 9:00 AM Laura Hua RN Pacemaker No 10/08/2025 9:00 AM Laura Lopez RN Heart Sounds S1, S2 10/08/2025 9:00 AM Laura Lopez RN Telemetry/Hot Tar Roofer Helper No 10/08/2025 9:00 AM Laura Hua RN Jugular Venous Distention (JVD) No 10/08/2025 9:00 AM Laura Hua RN Cardiac Symptoms Asymptomatic 10/08/2025 9:00 AM Laura Wesley RN Cardiac ([facility]) WD 10/08/2025 9:00 AM Laura Caldwell RN * Genitourinary Question Answer Entry Date Author Urinary Incontinence No 10/08/2025 9:00 AM Laura Hua RN Genitourinary Symptoms Burning;Excessive passage of urine;Increased frequency;Urgency 10/07/2025 8:00 AM Brianne Haile RN Genitourinary Additional Assessments No 10/07/2025 9:00 PM Tressa Gutierrez RN Suprapubic Tenderness No 10/08/2025 9:00 AM Laura Hua RN Genitourinary ([facility]) WDL 10/08/2025 9 :00 AM Laura Hua RN * Neurological Question Answer Entry Date Author Level of Consciousness Alert 9:00 AM aLura Hua RN Orientation Level Oriented X4 10/08/2025 9:0 0 AM Laura Hua RN Cognition Appropriate judgement;Follows commands 10/08/2025 9:00 AM Laura Hua RN Speech Clear;Appropriate fo r developmental age 1110/08/2025 9:00 AM Laura Hua RN Swallow Able to swallow jacque ds and liquids without difficulty 10/08/2025 9:00 AM Laura Hua RN Neuro Symptoms None 10/07/2025 9:00 PM Tressa Gutierrez RN Neuro (WDL) WDL 10/08/2025 9:00 AM Laura Hua RN * Urine Output/Assessment Question Answer Entry Date Author Urine Color [place] 10/08/2025 5:00 AM Kari Benedict RN Urine Appearance Unable to assess 10/08/2025 5:00 AM Kari Andrews RN Urine Odor [place] 10/08/2025 5:00 AM Kari Benedict RN * Family/Significant Other Communication Question Answer Entry Date Author Family/Significant Other Update Visiting 5:00 PM Dinora Maher documented in this encounter Discharge Summaries * Pan Grant MD - 10/08/2025 4:56 PM EST Patient Name: Kimani Hernandez : 1970 Date of Admission: 10/07/2025 Date of Discharge: 10/08/2025 5:00 PM Primary Care Physician: No primary care provider on file. Consultations: Discharge Diagnoses: Possible obstructive uropathy Urinary tract infection History of pulmonary embolism GERD Reason for Admission: Kimani Hernandez is a 54 y.o. female with past medical history of pulmonary embolism on Eliquis anxiety depression, GERD, patient was transferred from [facility] for obstructive uropathy. Patient started having right flank pain started last night, sharp in nature, due to her groin, stated with nausea but no vomiting, she also reports she have burning micturition and she had some blood inher urine. Initial workup urinalysis nitrate positive, leukocyte esterase +1, color turbid, CBC WBC18.6, hemoglobin 16.2, platelet 584, sodium 138, potassium 4.3, BUN 13, creatinine 0.9, glucose 104, AST 32, ALT 26, lactic acid 0.9. C Tscan showed per report mild hydronephrosis,possible 1mm stone just proximal to the right UVJ vs other enhancing lesion Patient was giving IV ceftriaxone and vancomycin. Hospital Course: Patient was admitted for further evaluation and treatment, she was started on IV antibiotics, repeated CT scan in our facility showed no evidence of obstruction,, there is no hydronephrosis per report. Patient condition stable, will be discharged home follow-up with primary care provider as an outpatient. Studies Performed: Procedures Performed: Discharge Medications: Your medication list START taking these medications Instructions Comments Quantity Refills cefdinir 300 mg capsule Commonly known as: OMNICEF Take 1 capsule (300 mg total) by mouth 2 (two) times daily for 5 days. 10 capsule 0 oxyCODONE 5 MG immediate release tablet Commonly known as: ROXICODONE Take 1 tablet (5 mg total) by mouth every 4 (four) hours as needed for up to 3 days Look-alike/Sound-alike medication. Max Daily Amount: 30 mg 10 tablet 0 CONTINUE taking these medications Instructions Comments Quantity Refills ascorbic acid with pato hips 500 MG tablet Generic drug: ascorbic acid Take 1 tablet (500 mg total) by mouth daily. 0 cholecalciferol (vitamin D3) 25 mcg (1,000 unit) capsule Take 1 capsule (1,000 Units total) by mouth daily. 0 citalopram 10 MG tablet Commonly known as: CeleXA Take 1 tablet (10 mg total) by mouth daily Look-alike/Sound-alike medication. 0 docusate sodium 100 MG capsule Commonly known as: COLACE Take 1 capsule (100 mg total) by mouth daily. 0 Dymista 137-50 mcg/spray [place] Generic drug: azelastine-fluticasone Administer 1 spray into affected nostril(s) 2 (two) times daily. 0 Eliquis 2.5 MG tablet Generic drug: apixaban Take 1 tablet (2.5 mg total) by mouth 2 (two) times daily. 0 esomeprazole 40 MG capsule Commonly known as: NexIUM Take 1 capsule (40 mg total) by mouth Daily (0600). 0 loratadine-pseudoephedrine 10-240 mg per 24 hr tablet Commonly known as: CLARITIN-D 24-hour Take 1 tablet by mouth daily. 0 magnesium oxide 400 mg tablet Commonly known as: MAG-OX Take 1 tablet (400 mg total) by mouth daily. 0 multivitamin per tablet Take 1 tablet by mouth daily. 0 tirzepatide 12.5 mg/0.5 mL Pnij Inject 12.5 mg under the skin every 7 days. 0 zinc sulfate 50 mg zinc (220 mg) capsule Commonly known as: ZINCATE Take 1 capsule (50 mg total) by mouth daily. 0 Where to Get Your Medications These medications were sent to [facility] [address] [place] [id number] cefdinir 300 mg capsule oxyCODONE 5 MG immediate release tablet Physical Exam BP (!) 144/74 (BP Location: Right arm, Patient Position: Lying) Pulse 79 Temp 98.1 ??F (36.7 ??C) (Oral) Resp 16 Ht 1.626 m (5' 4 ) Wt 82.6 kg (182 lb) SpO2 95% BMI 31.24 kg/m?? Discharge Instructions Discharge Diet: Discharge Activity: Discharge Follow UP: Time Spent: 33min Electronically signed by Pan Grant MD, 10/11/25, 10:52 PM EST CTOR OF PRIMARY CARE documented in this encounter Discharge Instructions * Appointments* Laura Kulkarni RN - 10/08/2025 4:58 PM EST Follow-up with your PCP within 2 weeks CTOR OF PRIMARY CARE * Attachments The following attachments cannot be sent through Care Everywhere. * Urinary Tract Infection Adult [id number] (Prydeinig) documented in this encounter Medications at Time of Discharge apixaban (Eliquis) 2.5 mg tab tablet Take 1 tablet (2.5 mg total) by mouth 2 (two) times daily. ascorbic acid (ascorbic acid with pato hips) 500 MG tablet Take 1 tablet (500 mg total) by mouth daily. azelastine-fluti casone (Dymista) 137-50 mcg/spray spry Administer 1 spray into affected nostril(s) 2 (two) times daily. cholecalciferol, vitamin D3, 25 mcg (1,000 unit) capsule Take 1 capsule (1,000 Units total) by mouth daily. citalopram (CeleXA) 10 MG tablet Take 1 tablet (10 mg total) by mouth daily Look-alike/Shira nd-alike medication. docusate sodium (COLACE) 100 MG capsule Take 1 capsule (100 mg total) by mouth daily. esomeprazole (NexIUM) 40 MG capsule Take 1 capsule (40 mg total) by mouth Daily (0600). loratadine-pseud oephedrine (CLARITIN-D 24-hour) 10-240 mg per 24 hr tablet Take 1 tablet by mouth daily. magnesium oxide (MAG-OX) 400 mg tablet Take 1 tablet (400 mg total) by mouth daily. multivitamin per tablet Take 1 tablet by mouth daily. tirzepatide 12.5 mg/0.5 mL pnij Inject 12.5 mg under the skin every 7 days. zinc sulfate (ZINCATE) 50 mg zinc (220 mg) capsule Take 1 capsule (50 mg total) by mouth daily. cefdinir (OMNICEF) 300 mg capsule Take 1 capsule (300 mg total) by mouth 2 (two) times daily for 5 days. 10 capsule 10/08/2025 5 oxyCODONE (ROXICODONE) 5 MG immediate release tablet Take 1 tablet (5 mg total) by mouth every 4 (four) hours as needed for up to 3 days Look-alike/Shira nd-alike medication. Max Daily Amount: 30 mg 10 tablet 10/08/2025 5 documented as of this encounter Progress Notes * Sampson Renteria MD - 10/08/2025 10:08 AM EST Patient does not have any signs of obstruction of her urinary system on CT imaging. I will round onher tomorrow. She can eat. No urologic intervention planned. CTOR OF PRIMARY CARE documented in this encounter H&P Notes * Pan Grant MD - 10/07/2025 10:33 AM EST History of Present Illness History Of Present Illness Kimani Hernandez is a 54 y.o. female with past medical history of pulmonary embolism on Eliquis anxiety depression, GERD, patient was transferred from [facility] for obstructive uropathy. Patient started having right flank pain started last night, sharp in nature, due to her groin, stated with nausea but no vomiting, she also reports she have burning micturition and she had some blood inher urine. Initial workup urinalysis nitrate positive, leukocyte esterase +1, color turbid, CBC WBC18.6, hemoglobin 16.2, platelet 584, sodium 138, potassium 4.3, BUN 13, creatinine 0.9, glucose 104, AST 32, ALT 26, lactic acid 0.9. C Tscan showed per report mild hydronephrosis,possible 1mm stone just proximal to the right UVJ vs other enhancing lesion Patient was giving IV ceftriaxone and vancomycin. Past Medical History She has no past medical history on file. Surgical History She has no past surgical history on file. Social History She has no history on file for tobacco use, alcohol use, and drug use. Family History Her family history is not on file. Allergies Patient has no known allergies. Medications No current outpatient medications Review of Systems Review of Systems As above Last Recorded Vitals Blood pressure (!) 141/77, pulse 99, temperature 97.2 ??F (36.2 ??C), temperature source Oral, resp. rate 18, height 1.626 m (5' 4 ), weight 82.6 kg (182 lb), SpO2 98%. Physical Exam Head atraumatic normal cephalic Constitutional alert oriented not acute distress or pain Cardiovascular S1-S2 no murmur gallops rubs appreciated Respiratory clear to quotation bilateral no crepitation or wheezing Right costophrenic angle tenderness Diagnostic Results Admission on 10/07/2025 Component Date Value Ref Range Status Sodium 10/07/2025 141 136 - 145 meq/L Final Potassium 10/07/2025 4.0 3.4 - 5.1 meq/L Final Chloride 10/07/2025 109 98 - 112 meq/L Final CO2 10/07/2025 23 22 - 29 meq/L Final Calcium 10/07/2025 8.7 8.4 - 10.2 mg/dL Final Glucose 10/07/2025 87 74 - 100 mg/dL Final BUN 10/07/2025 12.0 9.8 - 20.1 mg/dL Final Creatinine 10/07/2025 0.68 0.50 - 1.10 mg/dL Final BUN/Creatinine 10/07/2025 18 8 - 20 Final eGFR (mL/min/1.73m2) 10/07/2025 104 >=60 mL/min/1.73m2 Final Albumin 10/07/2025 3.6 3.5 - 5.0 g/dL Final Alkaline Phosphatase 10/07/2025 197 (H) 40 - 150 U/L Final ALT 10/07/2025 306 (H) <55 U/L Final AST 10/07/2025 561 (H) 5 - 34 U/L Final Total Bilirubin 10/07/2025 0.6 0.3 - 1.2 mg/dL Final Protein, Total 10/07/2025 7.2 6.4 - 8.3 g/dL Final Globulin 10/07/2025 3.6 2.5 - 4.1 g/dL Final Anion Gap 10/07/2025 13 (H) 4 - 12 Final A/G Ratio 10/07/2025 1.0 0.7 - 1.9 Final Osmolality Calc 10/07/2025 280.4 mOsm/kg Final WBC 10/07/2025 14.4 (H) 4.0 - 10.0 K/??L Final RBC 10/07/2025 4.98 3.93 - 5.22 M/??L Final Hemoglobin 10/07/2025 14.1 11.2 - 15.7 GM/DL Final Hematocrit 10/07/2025 44.3 34.1 - 44.9 % Final MCV 10/07/2025 89 79 - 95 fL Final MCH 10/07/2025 28.3 25.6 - 32.2 pg Final MCHC 10/07/2025 31.8 (L) 32.2 - 35.5 GM/DL Final RDW 10/07/2025 17.1 (H) 11.7 - 14.4 % Final Platelets 10/07/2025 538 (H) 140 - 375 K/CU MM Final MPV 10/07/2025 9.8 9.4 - 12.3 fL Final % Neutros 10/07/2025 63 34 - 71 % Final % Lymphs 10/07/2025 24 19 - 52 % Final % Monos 10/07/2025 11 5 - 13 % Final % Eos 10/07/2025 0.8 (L) 1.0 - 6.0 % Final % Baso 10/07/2025 1 0 - 1 % Final NRBC Absolute 10/07/2025 <0.01 0 - 0.012 K/ul Final # Neutros 10/07/2025 9.10 (H) 1.56 - 6.13 K/??L Final # Lymphs 10/07/2025 3.41 1.18 - 3.74 K/??L Final # Monos 10/07/2025 1.62 (H) 0.24 - 0.86 K/??L Final # Eos 10/07/2025 0.12 0.04 - 0.36 K/??L Final # Baso 10/07/2025 0.10 (H) 0.01 - 0.08 K/??L Final % Imm Grans 10/07/2025 0.30 0.01 - 0.43 % Final # IG 10/07/2025 0.04 (H) 0.00 - 0.03 K/uL Final Protime 10/07/2025 10.7 9.0 - 12.0 seconds Final INR 10/07/2025 0.96 0.80 - 1.10 Final aPTT 10/07/2025 29.9 22.0 - 32.0 seconds Final CRP 10/07/2025 9.5 (H) 0.0 - 5.0 mg/L Final Procalcitonin 10/07/2025 0.03 See Comment ng/mL Final No image results found. Assessment and plan #Obstructive uropathy # Urinary tract infection Patient with no previous history of kidney stones Urinalysis noted Follow cultures obtained at outside facility She received IV vancomycin and ceftriaxone, will continue with IV ceftriaxone Check procalcitonin and CRP Will keep n.p.o. Urology consultation # History of pulmonary embolism Patient on Eliquis will hold for now #Anxiety and depression Resume Celexa #GERD PPI After discussion with ER provider, decision made for admission Patient will require inpatient admission for greater than 48 hours for work-up and stabilization oftheir condition Electronically signed by: Pan Grant MD, 10/07/2025 at 10:39 AM CTOR OF PRIMARY CARE CTOR OF PRIMARY CARE documented in this encounter Miscellaneous Notes * Plan of Care - Laura Kulkarni RN - 10/08/2025 3:02 PM EST Problem: Pain Goal: Patient's pain/discomfort is manageable Description: Assess and monitor patient's pain using appropriate pain scale. Collaborate with interdisciplinary team and initiate plan and interventions as ordered. Re-assess patient's pain level after pain management intervention. Outcome: Progressing Problem: Safety Goal: Patient will be injury free during hospitalization Description: Assess and monitor vitals signs, neurological status including level of consciousness and orientation. Assess patient's risk for falls and implement fall prevention plan of care and interventions per hospital policy. Ensure arm band on, uncluttered walking paths in room, adequate room lighting, call light and overbed table within reach, bed in low position, wheels locked, side rails up per policy, and non-skid footwear provided. Outcome: Progressing Problem: Potential for Developing a Blood Clot Goal: Tissue perfusion is adequate - venous Description: Assess and monitor skin color and temperature, skin integrity, pulses, capillary refill, edema, pain in extremities, Homans' sign, labs (D- dimer), and diagnostic tests (ultrasound, CT scan, VQ scan). Monitor for signs and symptoms of deep vein thrombosis (swelling of calf/thigh, redness, pain, tenderness). Monitor for signs and symptoms of pulmonary embolism (dyspnea, tachypnea, tachycardia). Collaborate with interdisciplinary team and initiate plans and interventions as needed Outcome: Progressing Problem: Daily Care Goal: Daily care needs are met Description: Assess and monitor ability to perform self care and identify potential discharge needs. Outcome: Progressing Problem: Potential for Infection Goal: Remains infection free Description: Assess and monitor vital signs, skin (color, moisture, integrity, turgor), respiratorystatus, urinary and gastrointestinal status, and labs (WBC, cultures). Administer antibiotics and antipyretics as ordered. Ensure aseptic care of all intravenous lines, invasive tubes/drains and wounds. Monitor for signs and symptoms of infection (redness, warmth, discharge, increased body temperature). Wash hands properly before and after each patient care activity. Follow isolation guidelines per hospital protocol/policy. Collaborate with interdisciplinary team and initiate plan and interventions as ordered. Outcome: Progressing Problem: Psychosocial Needs Goal: Demonstrates ability to cope with hospitalization/illness Description: Assess and monitor patients ability to cope with his/her illness. Outcome: Progressing Goal: Collaborate with patient/family/caregiver to identify patient specific goals for this hospitalization Outcome: Progressing Problem: Anxiety Goal: Anxiety is at manageable level Description: Assess and monitor patient's anxiety level. Monitor for signs and symptoms of anxiety both physical and emotional (heart palpitations, chest pain, shortness of breath, headaches, nausea,feeling jumpy, restlessness, irritable, apprehensive). Collaborate with interdisciplinary team and initiate plan and interventions as ordered. Outcome: Progressing Problem: Inadequate Coping Goal: Demonstrates ability to cope effectively Description: Patient is able to verbalize feelings related to emotional state. Outcome: Progressing Goal: Verbalizes adaptive coping mechanisms Description: Able to verbalize adaptive coping mechanisms such as physical activity, distraction, and deep breathing exercises. Outcome: Progressing Goal: Verbalizes personal strengths Description: Spend time with the patient using empathy and active listening skills. Outcome: Progressing Problem: Progressive Mobility Goal: BMAT Level 1 - With full mechanical lifting assistance: Outcome: Progressing Goal: BMAT Level 2 - With 2-person and/or mechanical lifting assistance: Outcome: Progressing Goal: BMAT Level 3 - With 1 to 2-person and/or mechanical lifting assistance: Outcome: Progressing Goal: BMAT Level 4 - With 1-person assistance or mobility aid as needed (walker, cane, crutches): Outcome: Progressing Problem: Discharge Barriers Goal: Patient's discharge needs are met Description: Collaborate with interdisciplinary team and initiate plans and interventions as needed. Outcome: Progressing [facility] * Plan of Care - Tressa Brewer RN - 10/08/2025 2:07 AM EST Problem: Pain Goal: Patient's pain/discomfort is manageable Description: Assess and monitor patient's pain using appropriate pain scale. Collaborate with interdisciplinary team and initiate plan and interventions as ordered. Re-assess patient's pain level after pain management intervention. Outcome: Progressing Problem: Safety Goal: Patient will be injury free during hospitalization Description: Assess and monitor vitals signs, neurological status including level of consciousness and orientation. Assess patient's risk for falls and implement fall prevention plan of care and interventions per hospital policy. Ensure arm band on, uncluttered walking paths in room, adequate room lighting, call light and overbed table within reach, bed in low position, wheels locked, side rails up per policy, and non-skid footwear provided. Outcome: Progressing Problem: Potential for Developing a Blood Clot Goal: Tissue perfusion is adequate - venous Description: Assess and monitor skin color and temperature, skin integrity, pulses, capillary refill, edema, pain in extremities, Homans' sign, labs (D- dimer), and diagnostic tests (ultrasound, CT scan, VQ scan). Monitor for signs and symptoms of deep vein thrombosis (swelling of calf/thigh, redness, pain, tenderness). Monitor for signs and symptoms of pulmonary embolism (dyspnea, tachypnea, tachycardia). Collaborate with interdisciplinary team and initiate plans and interventions as needed Outcome: Progressing Problem: Daily Care Goal: Daily care needs are met Description: Assess and monitor ability to perform self care and identify potential discharge needs. Outcome: Progressing Problem: Potential for Infection Goal: Remains infection free Description: Assess and monitor vital signs, skin (color, moisture, integrity, turgor), respiratorystatus, urinary and gastrointestinal status, and labs (WBC, cultures). Administer antibiotics and antipyretics as ordered. Ensure aseptic care of all intravenous lines, invasive tubes/drains and wounds. Monitor for signs and symptoms of infection (redness, warmth, discharge, increased body temperature). Wash hands properly before and after each patient care activity. Follow isolation guidelines per hospital protocol/policy. Collaborate with interdisciplinary team and initiate plan and interventions as ordered. Outcome: Progressing Problem: Psychosocial Needs Goal: Demonstrates ability to cope with hospitalization/illness Description: Assess and monitor patients ability to cope with his/her illness. Outcome: Progressing Goal: Collaborate with patient/family/caregiver to identify patient specific goals for this hospitalization Outcome: Progressing Problem: Anxiety Goal: Anxiety is at manageable level Description: Assess and monitor patient's anxiety level. Monitor for signs and symptoms of anxiety both physical and emotional (heart palpitations, chest pain, shortness of breath, headaches, nausea,feeling jumpy, restlessness, irritable, apprehensive). Collaborate with interdisciplinary team and initiate plan and interventions as ordered. Outcome: Progressing Problem: Inadequate Coping Goal: Demonstrates ability to cope effectively Description: Patient is able to verbalize feelings related to emotional state. Outcome: Progressing Goal: Verbalizes adaptive coping mechanisms Description: Able to verbalize adaptive coping mechanisms such as physical activity, distraction, and deep breathing exercises. Outcome: Progressing Goal: Verbalizes personal strengths Description: Spend time with the patient using empathy and active listening skills. Outcome: Progressing Problem: Progressive Mobility Goal: BMAT Level 1 - With full mechanical lifting assistance: Outcome: Progressing Goal: BMAT Level 2 - With 2-person and/or mechanical lifting assistance: Outcome: Progressing Goal: BMAT Level 3 - With 1 to 2-person and/or mechanical lifting assistance: Outcome: Progressing Goal: BMAT Level 4 - With 1-person assistance or mobility aid as needed (walker, cane, crutches): Outcome: Progressing Problem: Discharge Barriers Goal: Patient's discharge needs are met Description: Collaborate with interdisciplinary team and initiate plans and interventions as needed. Outcome: Progressing [facility] * Plan of Care - Samantha Oneal RN - 10/07/2025 6:19 AM EST Problem: Pain Goal: Patient's pain/discomfort is manageable Description: Assess and monitor patient's pain using appropriate pain scale. Collaborate with interdisciplinary team and initiate plan and interventions as ordered. Re-assess patient's pain level after pain management intervention. Outcome: Progressing Problem: Safety Goal: Patient will be injury free during hospitalization Description: Assess and monitor vitals signs, neurological status including level of consciousness and orientation. Assess patient's risk for falls and implement fall prevention plan of care and interventions per hospital policy. Ensure arm band on, uncluttered walking paths in room, adequate room lighting, call light and overbed table within reach, bed in low position, wheels locked, side rails up per policy, and non-skid footwear provided. Outcome: Progressing Problem: Potential for Developing a Blood Clot Goal: Tissue perfusion is adequate - venous Description: Assess and monitor skin color and temperature, skin integrity, pulses, capillary refill, edema, pain in extremities, Homans' sign, labs (D- dimer), and diagnostic tests (ultrasound, CT scan, VQ scan). Monitor for signs and symptoms of deep vein thrombosis (swelling of calf/thigh, redness, pain, tenderness). Monitor for signs and symptoms of pulmonary embolism (dyspnea, tachypnea, tachycardia). Collaborate with interdisciplinary team and initiate plans and interventions as needed Outcome: Progressing Problem: Daily Care Goal: Daily care needs are met Description: Assess and monitor ability to perform self care and identify potential discharge needs. Outcome: Progressing Problem: Potential for Infection Goal: Remains infection free Description: Assess and monitor vital signs, skin (color, moisture, integrity, turgor), respiratorystatus, urinary and gastrointestinal status, and labs (WBC, cultures). Administer antibiotics and antipyretics as ordered. Ensure aseptic care of all intravenous lines, invasive tubes/drains and wounds. Monitor for signs and symptoms of infection (redness, warmth, discharge, increased body temperature). Wash hands properly before and after each patient care activity. Follow isolation guidelines per hospital protocol/policy. Collaborate with interdisciplinary team and initiate plan and interventions as ordered. Outcome: Progressing Problem: Psychosocial Needs Goal: Demonstrates ability to cope with hospitalization/illness Description: Assess and monitor patients ability to cope with his/her illness. Outcome: Progressing Goal: Collaborate with patient/family/caregiver to identify patient specific goals for this hospitalization Outcome: Progressing Problem: Anxiety Goal: Anxiety is at manageable level Description: Assess and monitor patient's anxiety level. Monitor for signs and symptoms of anxiety both physical and emotional (heart palpitations, chest pain, shortness of breath, headaches, nausea,feeling jumpy, restlessness, irritable, apprehensive). Collaborate with interdisciplinary team and initiate plan and interventions as ordered. Outcome: Progressing Problem: Inadequate Coping Goal: Demonstrates ability to cope effectively Description: Patient is able to verbalize feelings related to emotional state. Outcome: Progressing Goal: Verbalizes adaptive coping mechanisms Description: Able to verbalize adaptive coping mechanisms such as physical activity, distraction, and deep breathing exercises. Outcome: Progressing Goal: Verbalizes personal strengths Description: Spend time with the patient using empathy and active listening skills. Outcome: Progressing Problem: Progressive Mobility Goal: BMAT Level 1 - With full mechanical lifting assistance: Outcome: Progressing Goal: BMAT Level 2 - With 2-person and/or mechanical lifting assistance: Outcome: Progressing Goal: BMAT Level 3 - With 1 to 2-person and/or mechanical lifting assistance: Outcome: Progressing Goal: BMAT Level 4 - With 1-person assistance or mobility aid as needed (walker, cane, crutches): Outcome: Progressing Problem: Discharge Barriers Goal: Patient's discharge needs are met Description: Collaborate with interdisciplinary team and initiate plans and interventions as needed. Outcome: Progressing [facility] documented in this encounter Plan of Treatment Not on file documented as of this encounter Procedures Procedure Name Priority Date/Time Associated Diagnosis Comments COMPREHENSIVE METABOLIC PANEL Routine 10/08/2025 8:[address] ABDOMEN/PELVIS WITHOUT IV CONTRAST STAT 10/07/2025 5:57 PM EST CBC W/ AUTO DIFF STAT 10/07/2025 8:23 AM EST PROCALCITONIN Routine 10/07/2025 8:23 AM EST C-REACTIVE PROTEIN Routine 10/07/2025 8: 23 AM EST APTT STAT 10/07/2025 8:23 AM EST PROTHROMBIN TIME/INR STAT 10/07/2025 8:23 AM EST COMPREHENSIVE METABOLIC PANEL STAT 10/07/2025 8:23 AM EST documented in this encounter Results * (ABNORMAL) Comprehensive metabolic panel (10/08/2025 8:57 AM EST) [facility] Sodium 139 136 - 145 meq/L 10/08/2025 9:25 AM EST [facility] Potassium 3.7 3.4 - 5.1 meq/L 10/08/2025 9:25 AM [facility] Chloride 112 98 - 112 meq/L 10/08/2025 9:25 AM [facility] CO2 19(L) 22 - 29 meq/L 10/08/2025 9:25 AM [facility] Calcium 8.6 8.4 - 10.2 mg/dL 10/08/2025 9:25 AM [facility] Glucose 140(H) 74 - 100 mg/dL 10/08/2025 9:25 AM [facility] BUN 10.0 9.8 - 20.1 mg/dL 10/08/2025 9:25 AM [facility] Creatinine 0.59 0.50 - 1.10 mg/dL 10/08/2025 9:25 AM [facility] BUN/Creatinine 17 8 - 20 10/08/2025 9:25 AM [facility] eGFR (mL/min/1.73m2) 107 >=60 mL/min/1.7 3m2 10/08/2025 9:25 AM [facility] Comment:ESTIMATED GFR IS NOT ACCURATE CREATININE CLEARANCE IN PREDICTING GLOMERULAR FILTRATION RATE. ESTIMATED GFR IS NOT APPLICABLE FOR DIALYSIS PATIENTS. Albumin 3.1(L) 3.5 - 5.0 g/dL 10/08/2025 9:25 AM [facility] Alkaline Phosphatase 164(H) 40 - 150 U/L 10/08/2025 9:25 AM [facility] ALT 350(H) <55 U/L 10/08/2025 9:25 AM [facility] AST 226(H) 5 - 34 U/L 10/08/2025 9:25 AM [facility] Total Bilirubin 0.3 0.3 - 1.2 mg/dL 10/08/2025 9:25 AM [facility] Protein, Total 6.3(L) 6.4 - 8.3 g/dL 10/08/2025 9:25 AM [facility] Globulin 3.2 2.5 - 4.1 g/dL 10/08/2025 9:25 AM EST [facility] Anion Gap 12 4 - 12 10/08/2025 9:25 AM EST [facility] A/G Ratio 1.0 0.7 - 1.9 10/08/2025 9:25 AM EST [facility] Osmolality Calc 278.9 mOsm/kg 9:25 AM EST [facility] Blood Venipuncture / Unknown 10/08/2025 8:57 AM EST 10/08/2025 9:01 AM EST us Pan Grant MD LAB BLOOD ORDERABLES Final Re sult [facility] [address] [phone] * CT ABDOMEN/PELVIS WITHOUT IV CONTRAST Standard Protocol (10/07/2025 5:57 PM EST) Anatomical Region Laterality Modality Abdomen, Pelvis Computed Tomogra phy (CT) 10/07/2025 8:49 PM EST Impressions 10/07/2025 9:03 PM EST 1. Contrast excreted from the kidneys. There is no hydronephrosis. 2. GI demonstrates no obstruction. 3. Prior cholecystectomy. 4. Moderate right-sided stool. Images reviewed, interpreted, and dictated by Dr. Rg Marquez. Transcribed by Bernardo Dee. Narrative 10/07/2025 9:[address] ABDOMEN AND PELVIS WITH IV CONTRAST HISTORY: Acute right flank pain. Nausea/vomiting. TECHNIQUE: Thin-section axial images from the lung bases through the symphysis pubis were performed with the administration of 100 milliliters of Isovue 300 intravenously. This study was performed with techniques to keep radiation doses as low as reasonably achievable, (ALARA). Individualized dose reduction techniques using automated exposure control or adjustment of mA and/or kV according to the patient size were employed. COMPARISON: None FINDINGS: The lung bases are clear. There is a trace pericardial effusion. There is a small hiatal hernia. The liver is unremarkable. The patient is status post cholecystectomy. There are small splenules present, but no dominant spleen. The pancreas demonstrates normal enhancement with normal contours. The adrenal glands are unremarkable. The kidneys demonstrate contrast within the collecting systems bilaterally. There is no hydronephrosis. There is no perinephric stranding. The urinary bladder is decompressed. The aorta has normal contours without significant plaque formation. The GI tract demonstrates no obstruction. There is no bowel wall thickening. Surgical clips are noted in the cecum suggesting appendectomy. There is no free air. There is anterior lower abdominal wall hernia containing nonobstructed small bowel. There is no free fluid or inflammatory process. There is no adenopathy or mass. There are no bony abnormalities. Procedure Note Rg Marquez MD - 10/07/2025 CT ABDOMEN AND PELVIS WITH IV CONTRAST HISTORY: Acute right flank pain. Nausea/vomiting. TECHNIQUE: Thin-section axial images from the lung bases through the symphysis pubis were performed with the administration of 100 milliliters of Isovue 300 intravenously. This study was performed with techniques to keep radiation doses as low as reasonably achievable, (ALARA). Individualized dose reduction techniques using automated exposure control or adjustment of mA and/or kV according to the patient size were employed. COMPARISON: None FINDINGS: The lung bases are clear. There is a trace pericardial effusion. There is a small hiatal hernia. The liver is unremarkable. The patient is status post cholecystectomy. There are small splenules present, but no dominant spleen. The pancreas demonstrates normal enhancement with normal contours. The adrenal glands are unremarkable. The kidneys demonstrate contrast within the collecting systems bilaterally. There is no hydronephrosis. There is no perinephric stranding. The urinary bladder is decompressed. The aorta has normal contours without significant plaque formation. The GI tract demonstrates no obstruction. There is no bowel wall thickening. Surgical clips are noted in the cecum suggesting appendectomy. There is no free air. There is anterior lower abdominal wall hernia containing nonobstructed small bowel. There is no free fluid or inflammatory process. There is no adenopathy or mass. There are no bony abnormalities. IMPRESSION: 1. Contrast excreted from the kidneys. There is no hydronephrosis. 2. GI demonstrates no obstruction. 3. Prior cholecystectomy. 4. Moderate right-sided stool. Images reviewed, interpreted, and dictated by Dr. Rg Marquez. Transcribed by Bernardo Dee. us Sampson Renteria MD IMG CT ORDERABLES Final Result * Procalcitonin (10/07/2025 8:23 AM EST) Procalcitonin 0.03 See Comment ng/mL 10/07/2025 10:07 AM EST [facility] Comment: Sepsis comment <0.5 Antibiotics Discouraged >0.5 Antibiotics Encouraged *Assessing Sepsis Risk and Severity* >2.0 ng/mL High Risk for Progression to severe sepsis and/or septic shock 0.5-2.0 ng/mL Sepsis should be considered <0.5 ng/mL Low Risk for Progression to Severe and/or septic shock Lower Respiratory Tract Infection (LRT) <0.25 Antibiotics Discouraged >0.25 Antibiotics Encouraged *Procalcitonin results should be interpreted carefully in settings that are known to falsely elevate results such as renal failure, trauma, localized infections and cee. Blood Venipuncture / Unknown 10/07/2025 8:23 AM EST 10/07/2025 8:48 AM EST Pan Grant MD LAB BLOOD ORDERABLES Final Re sult Performing Organization Address [facility] Co de Phone Number [facility] [address] [phone] * (ABNORMAL) C-Reactive Protein (10/07/2025 8:23 AM EST) [facility] CRP 9.5(H) 0.0 - 5.0 mg/L 10/07/2025 10:07 AM EST [facility] Blood Venipuncture / Unknown 10/07/2025 8:23 AM EST 10/07/2025 8:48 AM EST Pan Grant MD LAB BLOOD ORDERABLES Final Re sult Performing Organization Address [facility] Co de Phone Number [facility] [address] [phone] * aPTT (10/07/2025 8:23 AM EST) [facility] aPTT 29.9 22.0 - 32.0 seconds 10/07/2025 9:03 AM EST [facility] Blood Venipuncture / Unknown 10/07/2025 8:23 AM EST 10/07/2025 8:48 AM EST Pan Grant MD LAB BLOOD ORDERABLES Final Re sult [facility] [address] [phone] * Prothrombin time/INR (10/07/2025 8:23 AM EST) Protime 10.7 9.0 - 12.0 seconds 10/07/2025 9:03 AM EST [facility] INR 0.96 0.80 - 1.10 10/07/2025 9:03 AM EST [facility] Comment: Recommended therapeutic ranges using International Normalized Ratio (INR) are: INR RANGE 2.0 - 3.0 Routine oral anticoagulant therapy 2.5 - 3.5 Oral anticoagulant therapy for patients with thromboembolic events on standard doses of Coumadin and those with mechanical heart valves. Blood Venipuncture / Unknown 10/07/2025 8:23 AM EST 10/07/2025 8:48 AM EST Pan Grant MD LAB BLOOD ORDERABLES Final Re sult [facility] [address] [phone] * (ABNORMAL) CBC with automated diff (10/07/2025 8:23 AM EST) WBC 14.4(H) 4.0 - 10.0 K/ L 10/07/2025 8:53 AM EST [facility] RBC 4.98 3.93 - 5.22 M/ L 10/07/2025 8:53 AM EST [facility] Hemoglobin 14.1 11.2 - 15.7 GM/DL 10/07/2025 8:53 AM EST [facility] Hematocrit 44.3 34.1 - 44.9 % 10/07/2025 8:53 AM EST [facility] MCV 89 79 - 95 fL 10/07/2025 8:53 AM [facility] MCH 28.3 25.6 - 32.2 pg 10/07/2025 8:53 AM [facility] MCHC 31.8(L) 32.2 - 35.5 GM/DL 10/07/2025 8:53 AM [facility] RDW 17.1(H) 11.7 - 14.4 % 10/07/2025 8:53 AM [facility] Platelets 538(H) 140 - 375 K/CU MM 10/07/2025 8:53 AM [facility] MPV 9.8 9.4 - 12.3 fL 10/07/2025 8:53 AM [facility] % Neutros 63 34 - 71 % 10/07/2025 8:53 AM [facility] % Lymphs 24 19 - 52 % 10/07/2025 8:53 AM [facility] % Monos 11 5 - 13 % 10/07/2025 8:53 AM [facility] % Eos 0.8(L) 1.0 - 6.0 % 10/07/2025 8:53 AM [facility] % Baso 1 0 - 1 % 10/07/2025 8:53 AM [facility] NRBC Absolute <0.01 0 - 0.012 K/ul 10/07/2025 8:53 AM [facility] # Neutros 9.10(H) 1.56 - 6.13 K/ L 10/07/2025 8:53 AM [facility] # Lymphs 3.41 1.18 - 3.74 K/ L 10/07/2025 8:53 AM [facility] # Monos 1.62(H) 0.24 - 0.86 K/ L 10/07/2025 8:53 AM [facility] # Eos 0.12 0.04 - 0.36 K/ L 10/07/2025 8:53 AM [facility] # Baso 0.10(H) 0.01 - 0.08 K/ L 10/07/2025 8:53 AM [facility] % Imm Grans 0.30 0.01 - 0.43 % 10/07/2025 8:53 AM [facility] # IG 0.04(H) 0.00 - 0.03 K/uL 10/07/2025 8:53 AM [facility] Blood Venipuncture / Unknown 10/07/2025 8:23 AM EST 10/07/2025 8:48 AM EST Narrative [facility] - 10/07/2025 8:53 AM EST When CBC w/ Auto Diff is ordered the lab will add a Manual Differential as a quality check at no additional charge if: Lymphocytes greater than seventy five percent with normal or increased WBC Monocytes greater than Fifteen percent Basophil greater than four percent Bands >10% or several immature myeloids are seen on scan Blast? Flag noted Atypical Lymph flag noted us Pan Grant MD LAB BLOOD ORDERABLES Final Re sult [facility] [address] [place] [address] * (ABNORMAL) Comprehensive Metabolic Panel (10/07/2025 8:23 AM EST) Sodium 141 136 - 145 meq/L 10/07/2025 9:08 AM [facility] Potassium 4.0 3.4 - 5.1 meq/L 10/07/2025 9:08 AM [facility] Chloride 109 98 - 112 meq/L 10/07/2025 9:08 AM [facility] CO2 23 22 - 29 meq/L 10/07/2025 9:08 AM [facility] Calcium 8.7 8.4 - 10.2 mg/dL 10/07/2025 9:08 AM [facility] LABORATORY Glucose 87 74 - 100 mg/dL 10/07/2025 9:08 AM [facility] BUN 12.0 9.8 - 20.1 mg/dL 10/07/2025 9:08 AM [facility] Creatinine 0.68 0.50 - 1.10 mg/dL 10/07/2025 9:08 AM [facility] BUN/Creatinine 18 8 - 20 10/07/2025 9:08 AM [facility] eGFR (mL/min/1.73m2) 104 >=60 mL/min/1.7 3m2 10/07/2025 9:08 AM [facility] Comment:ESTIMATED GFR IS NOT ACCURATE CREATININE CLEARANCE IN PREDICTING GLOMERULAR FILTRATION RATE. ESTIMATED GFR IS NOT APPLICABLE FOR DIALYSIS PATIENTS. Albumin 3.6 3.5 - 5.0 g/dL 10/07/2025 9:08 AM [facility] Alkaline Phosphatase 197(H) 40 - 150 U/L 10/07/2025 9:08 AM [facility] ALT 306(H) <55 U/L 10/07/2025 9:08 AM [facility] AST 561(H) 5 - 34 U/L 10/07/2025 9:08 AM [facility] Total Bilirubin 0.6 0.3 - 1.2 mg/dL 10/07/2025 9:08 AM [facility] Protein, Total 7.2 6.4 - 8.3 g/dL 10/07/2025 9:08 AM [facility] Globulin 3.6 2.5 - 4.1 g/dL 10/07/2025 9:08 AM [facility] Anion Gap 13(H) 4 - 12 10/07/2025 9:08 AM [facility] A/G Ratio 1.0 0.7 - 1.9 10/07/2025 9:08 AM [facility] Osmolality Calc 280.4 mOsm/kg 9:08 AM [facility] Blood Venipuncture / Unknown 10/07/2025 8:23 AM EST 10/07/2025 8:48 AM EST us Pan Grant MD LAB BLOOD ORDERABLES Final Re sult [facility] [address] [phone] documented in this encounter Visit Diagnoses Diagnosis Obstructive uropathy- Primary Urinary obstruction, unspecified documented in this encounter Admitting Diagnoses Diagnosis Obstructive uropathy Urinary obstruction, unspecified documented in this encounter Administered Medications Inactive Administered Medications - up to 3 most recent administrations Medication Order MAR Action Action Date Dose Rate Site acetaminophen (TYLENOL) tablet 1,000 mg 1,000 mg Every 6 hours PRN, oral, fever greater than or equal to 38C, Starting on Fri10/07/25 at 0756, Recommended maximum dose of acetaminophen is 4000 mg from all sources in 24 hours Given 10/07/2025 3:57 PM EST 1,000 mg acetaminophen (TYLENOL) tablet 1,000 mg 1,000 mg Every 6 hours PRN, oral, fever greater than or equal to 38C, mild pain (1-3), Starting on Fri10/08/25 at 1133, Recommended maximum dose of acetaminophen is 4000 mg from all sources in 24 hours Given 10/08/2025 11:36 AM EST 1,000 mg cefTRIAXone (ROCEPHIN) 1 g in sodium chloride 0.9 % (NS) 50 mL TIFFANY IVPB 1 g Every 24 hours, intravenous, at 100 mL/hr, First dose on Fri10/07/25 at 1100, Please choose an indication: Urinary Tract Infection IVPB Started 10/08/2025 11:26 AM EST 1 g 100 mL/hr IVPB Started 10/07/2025 11:27 AM EST 1 g 100 mL/hr citalopram (CeleXA) tablet 10 mg 10 mg Daily, oral, First dose on Fri10/07/25 at 1530, Look-alike/Sound-alike medication Given 10/08/2025 9: 03 AM EST 10 mg Given 10/07/2025 3:21 PM EST 10 mg HYDROmorphone (DILAUDID) injection 0.2 mg 0.2 mg Every 4 hours PRN, intravenous, severe pain (7-10), Starting on Fri10/07/25 at 0759, Sub for morphine 1mg (mfg. Backorder) Given 10/07/2025 7:[address] 0.2 mg Given 10/07/2025 8:36 AM EST 0.2 mg ondansetron (ZOFRAN) injection 4 mg 4 mg Every 8 hours PRN, intravenous, nausea, vomiting, Starting on Fri10/07/25 at 0756, Give IV if patient is unable to take orally. 1st line If inadequate response within 60 minutes, proceed to next-line agent for same PRN reason or contact provider if no further options ordered. For IV push, give over 2 - 5 minutes. ondansetron (ZOFRAN-ODT) disintegrating tablet 4 mg 4 mg Every 8 hours PRN, oral, nausea, vomiting, Starting on Fri10/07/25 at 0756, 1st line. If inadequate response within 60 minutes, proceed to next-line agent for same PRN reason or contact provider if no further options ordered. oxyCODONE (ROXICODONE) immediate release tablet 5 mg 5 mg Every 4 hours PRN, oral, moderate pain (4-6), Starting on Fri10/07/25 at 0756, 2nd line analgesic. Give only if inadequate response (less than 50% reduction in pain score) 60 minutes after administration of 1st line analgesics + adjuvants (if ordered). Look-alike/Sound-alike medication Given 10/07/2025 10:05 PM EST 5 mg Given 10/07/2025 3:55 PM EST 5 mg Given 10/07/2025 11:25 AM EST 5 mg pantoprazole (PROTONIX) EC tablet 40 mg 40 mg Daily, oral, First dose on Fri10/07/25 at 1530, Therapeutic Interchange for Proton Pump Inhibitors. * DO NOT CRUSH THIS DOSAGE FORM * Given 10/08/2025 9:03 AM EST 40 mg Given 10/07/2025 3:21 PM EST 40 mg sodium chloride 0.9 % infusion 100 mL/hr Continuous, intravenous, Starting on Fri10/07/25 at 0830 New Bag 10/07/2025 9:45 PM EST 100 mL/hr 100 mL/hr New Bag 10/07/2025 8:55 AM EST 100 mL/hr 100 mL/hr sodium chloride flush 10 mL 10 mL As needed, intravenous, line care, Starting on Fri10/07/25 at 0756, Every 8 hours and PRN to flush documented in this encounter Active and Recently Administered Medications Times are shown in EST. Scheduled Medication Order 10/06/2025 10/07/2025 10/08/2025 cefTRIAXone (ROCEPHIN) 1 g in sodium chloride 0.9 % (NS) 50 mL TIFFANY IVPB 1 g Every 24 hours, intravenous, at 100 mL/hr, First dose on Fri10/07/25 at 1100, Please choose an indication: Urinary Tract Infection 1127 (IVPB Started - Provider: Brianne Pickett RN)1219 (IVPB Stopped - Provider: Brianne Pickett RN) 1126 (IVPB Started - Provider: Laura Kulkarni, KONRAD)1156 (IVPB Stopped - Provider: Laura Kulkarni, KONRAD) citalopram (CeleXA) tablet 10 mg 10 mg Daily, oral, First dose on Fri10/07/25 at 1530, Look-alike/Sound-alike medication 1521 (Given - Provider: Brianne Pickett RN) 0903 (Given - Provider: Laura Kulkarni RN) pantoprazole (PROTONIX) EC tablet 40 mg 40 mg Daily, oral, First dose on Fri10/07/25 at 1530, Therapeutic Interchange for Proton Pump Inhibitors. * DO NOT CRUSH THIS DOSAGE FORM * 1521 (Given - Provider: Brianne Pickett RN) 0903 (Given - Provider: Laura Kulkarni RN) tirzepatide pnij 12.5 mg 12.5 mg Every 7 days, subcutaneous, First dose on Fri10/07/25 at 1530 1653 (Not Given - Provider: Brianne Pickett RN - Reason: Other (with Comment) - Comment: took it earlier on) Continuous Medication Order 10/06/2025 10/07/2025 10/08/2025 sodium chloride 0.9 % infusion 100 mL/hr Continuous, intravenous, Starting on Fri10/07/25 at 0830 0855 (New Bag - Provider: Louise Pickett RN)2145 (New Bag - Provider: Tressa Brewer RN) PRN Medication Order 10/06/2025 10/07/2025 10/08/2025 acetaminophen (TYLENOL) tablet 1,000 mg (CANCELED) 1,000 mg Every 6 hours PRN, oral, fever greater than or equal to 38C, Starting on Fri10/07/25 at 0756, Recommended maximum dose of acetaminophen is 4000 mg from all sources in 24 hours 1557 (Given - Provider: Brianne Pickett RN) acetaminophen (TYLENOL) tablet 1,000 mg 1,000 mg Every 6 hours PRN, oral, fever greater than or equal to 38C, mild pain (1-3), Starting on Fri10/08/25 at 1133, Recommended maximum dose of acetaminophen is 4000 mg from all sources in 24 hours 1136 (Given - Provid er: Laura Kulkarni RN) HYDROmorphone (DILAUDID) injection 0.2 mg 0.2 mg Every 4 hours PRN, intravenous, severe pain (7-10), Starting on Fri10/07/25 at 0759, Sub for morphine 1mg (mfg. Backorder) 0836 (Given - Provider: Brianne Pickett, KONRAD)1940 (Given - Provider: Brianne Pickett RN) ondansetron (ZOFRAN) injection 4 mg(Linked Group 1) 4 mg Every 8 hours PRN, intravenous, nausea, vomiting, Starting on Fri10/07/25 at 0756, Give IV if patient is unable to take orally. 1st line If inadequate response within 60 minutes, proceed to next-line agent for same PRN reason or contact provider if no further options ordered. For IV push, give over 2 - 5 minutes. ondansetron (ZOFRAN-ODT) disintegrating tablet 4 mg(Linked Group 1) 4 mg Every 8 hours PRN, oral, nausea, vomiting, Starting on Fri10/07/25 at 0756, 1st line. If inadequate response within 60 minutes, proceed to next-line agent for same PRN reason or contact provider if no further options ordered. oxyCODONE (ROXICODONE) immediate release tablet 5 mg 5 mg Every 4 hours PRN, oral, moderate pain (4-6), Starting on Fri10/07/25 at 0756, 2nd line analgesic. Give only if inadequate response (less than 50% reduction in pain score) 60 minutes after administration of 1st line analgesics + adjuvants (if ordered). Look-alike/Sound-alike medication 1125 (Given - Provider: Brianne Pickett RN)1555 (Given - Provider: Brianne Pickett RN)2205 (Given - Provider: Tressa Brewer RN) sodium chloride flush 10 mL(Linked Group 2) 10 mL As needed, intravenous, line care, Starting on Fri10/07/25 at 0756, Every 8 hours and PRN to flush Linked Groups Order Group 1: ondansetron (ZOFRAN-ODT) disintegrating tablet 4 mgJump to med 4 mg Every 8 hours PRN, oral, nausea, vomiting, Starting on Fri10/07/25 at 0756, 1st line. If inadequate response within 60 minutes, proceed to next-line agent for same PRN reason or contact provider if no further options ordered. Or ondansetron (ZOFRAN) injection 4 mgJump to med 4 mg Every 8 hours PRN, intravenous, nausea, vomiting, Starting on Fri10/07/25 at 0756, Give IV if patient is unable to take orally. 1st line If inadequate response within 60 minutes, proceed to next-line agent for same PRN reason or contact provider if no further options ordered. For IV push, give over 2 - 5 minutes. Group 2: Insert Peripheral IV (CANCELED) STAT, Once, On Fri10/07/25 at 0757, For 1 occurrence And Saline Lock IV (CANCELED) Routine, Once, On Fri10/07/25 at 0757, For 1 occurrence And sodium chloride flush 10 mLJump to med 10 mL As needed, intravenous, line care, Starting on Fri10/07/25 at 0756, Every 8 hours and PRN to flush documented in this encounter
--- OUTSIDE RECORDS SUMMARY | 2025-11-24 07:36 | XMS_ITS | Clinical Summary ---
Author Organization [employer] ([place], [place], [place], [place], [place]) Address [address] [place] [address] Care Team Providers Care Tomato Grader Name Role Phone Unavailable Primary Care Provider Unavailabl e Allergies Active Allergy Reactions Criticality Noted Date Comments Codeine Nausea And Vomiting 10/07/2025 Vancomycin Itching 10/07/2025 Medications apixaban (Eliquis) 2.5 mg tab tablet Take 1 tablet (2.5 mg total) by mouth 2 (two) times daily. Active esomeprazole (NexIUM) 40 MG capsule Take 1 capsule (40 mg total) by mouth Daily (0600). Active citalopram (CeleXA) 10 MG tablet Take 1 tablet (10 mg total) by mouth daily Look-alike/So und-alike medication. Active azelastine-flut icasone (Dymista) 137-50 mcg/spray spry Administer 1 spray into affected nostril(s) 2 (two) times daily. Active loratadine-pseu doephedrine (CLARITIN-D 24-hour) 10-240 mg per 24 hr tablet Take 1 tablet by mouth daily. Active ascorbic acid (ascorbic acid with pato hips) 500 MG tablet Take 1 tablet (500 mg total) by mouth daily. Active magnesium oxide (MAG-OX) 400 mg tablet Take 1 tablet (400 mg total) by mouth daily. Active cholecalciferol , vitamin D3, 25 mcg (1,000 unit) capsule Take 1 capsule (1,000 Units total) by mouth daily. Active zinc sulfate (ZINCATE) 50 mg zinc (220 mg) capsule Take 1 capsule (50 mg total) by mouth daily. Active multivitamin per tablet Take 1 tablet by mouth daily. Active docusate sodium (COLACE) 100 MG capsule Take 1 capsule (100 mg total) by mouth daily. Active tirzepatide 12.5 mg/0.5 mL pnij Inject 12.5 mg under the skin every 7 days. Active Active Problems Problem Noted Date Diagnosed Date Obstructive uropathy 10/07/2025 Encounters Date Type Department Care Team Description 10/07/2025 5:52 AM EST - 10/08/2025 5:00 PM EST Hospital Encounter [facility] [address] [place] [address] Asif Child MD Elsallabi, Osama, MD Brammell, Korey, DO Discharge Disposition: Home or Self Care from Last 3 Months Social History Tobacco Use Types Packs/Day Years [...] you? Never 10/07/2025 How often does anyone, taurusantonio sabra family and friends, insult or talk down to you? Never 10/07/2025 How often does anyone, dariusz montaño family and friends, threaten you with harm? Never 10/07/2025 How often does anyone, taurusantonio montaño family and friends, scream or curse at you? Never 10/07/2025 Housing Stability Answer Date Recorded What is your living situation today? I have a [facility] place to live 10/07/2025 Think about the [...] Do you speak a language other than Burkinan at [facility]? No 10/07/2025 Do you want help with [...] Mass Index 31.24 10/07/2025 6:07 AM EST Plan of Treatment Health Maintenance Due Date Last Done Comments CT Colonography 1970 Colonoscopy 1970 Colorectal Cancer Screening 1970 FOBT/FIT 1970 Fit-DNA (Cologuard) 1970 Sigmoidoscopy 1970 Depression Screening (12+) 1982 Tobacco Cessation Counseling and Screening (12+) 1982 HIV Screening 1985 Hepatitis C Screening 1988 Pap Smear 1991 Breast Cancer Screening 2010 Lipid Panel 2015 Pneumococcal 50+ years (1 of 1 - PCV) 2020 Shingles Vaccine (Zoster) (1 of 2) 2020 COVID-19 VACCINE (3 - season) 2025, 09/21/2021 Influenza Vaccine (#1) 2025 10/04/2023 DTAP/TDAP/TD VACCINES (2 - Td or Tdap) 04/08/2035 Procedures Procedure Name Priority Date/Time Associated Diagnosis Comments COMPREHENSIVE METABOLIC PANEL Routine 10/08/2025 8:[address] ABDOMEN/PELVIS WITHOUT IV CONTRAST STAT 10/07/2025 5:57 PM EST PROCALCITONIN Routine 10/07/2025 8:23 AM EST C-REACTIVE PROTEIN Routine 10/07/2025 8: 23 AM EST APTT STAT 10/07/2025 8:23 AM EST PROTHROMBIN TIME/INR STAT 10/07/2025 8:23 AM EST CBC W/ AUTO DIFF STAT 10/07/2025 8:23 AM EST COMPREHENSIVE METABOLIC PANEL STAT 10/07/2025 8:23 AM EST from Last 3 Months Results * (ABNORMAL) Comprehensive metabolic panel (10/08/2025 8:57 AM EST) Only the most recent of2 resultswithin the time period is included. Sodium 139 136 - 145 meq/L 10/08/2025 9:25 AM [facility] Potassium 3.7 3.4 - 5.1 meq/L 10/08/2025 9:25 AM [facility] Chloride 112 98 - 112 meq/L 10/08/2025 9:25 AM [facility] CO2 19(L) 22 - 29 meq/L 10/08/2025 9:25 AM [facility] Calcium 8.6 8.4 - 10.2 mg/dL 10/08/2025 9:25 AM [facility] Glucose 140(H) 74 - 100 mg/dL 10/08/2025 9:25 AM [facility] BUN 10.0 9.8 - 20.1 mg/dL 10/08/2025 9:25 AM [facility] Creatinine 0.59 0.50 - 1.10 mg/dL 10/08/2025 9:25 AM [facility] BUN/Creatinine 17 8 - 20 10/08/2025 9:25 AM [facility] eGFR (mL/min/1.73m2) 107 >=60 mL/min/1.7 3m2 10/08/2025 9:25 AM [facility] Comment:ESTIMATED GFR IS NOT ACCURATE CREATININE CLEARANCE IN PREDICTING GLOMERULAR FILTRATION RATE. ESTIMATED GFR IS NOT APPLICABLE FOR DIALYSIS PATIENTS. Albumin 3.1(L) 3.5 - 5.0 g/dL 10/08/2025 9:25 AM [facility] Alkaline Phosphatase 164(H) 40 - 150 U/L 10/08/2025 9:25 AM [facility] ALT 350(H) <55 U/L 10/08/2025 9:25 AM [facility] AST 226(H) 5 - 34 U/L 10/08/2025 9:25 AM [facility] Total Bilirubin 0.3 0.3 - 1.2 mg/dL 10/08/2025 9:25 AM [facility] Protein, Total 6.3(L) 6.4 - 8.3 g/dL 10/08/2025 9:25 AM [facility] Globulin 3.2 2.5 - 4.1 g/dL 10/08/2025 9:25 AM [facility] Anion Gap 12 4 - 12 10/08/2025 9:25 AM [facility] A/G Ratio 1.0 0.7 - 1.9 10/08/2025 9:25 AM [facility] Osmolality Calc 278.9 mOsm/kg 9:25 AM [facility] Blood Venipuncture / Unknown 10/08/2025 8:57 AM EST 10/08/2025 9:01 AM EST us Pan Grant MD LAB BLOOD ORDERABLES Final Re sult [facility] [address] [phone] * CT ABDOMEN/PELVIS WITHOUT IV CONTRAST Standard [...] by Bernardo Dee. us Sampson Renteria MD IM CT ORDERABLES Final Result * (ABNORMAL) CBC with automated diff (10/07/2025 8:23 AM EST) WBC 14.4(H) 4.0 - 10.0 K/ L 10/07/2025 8:53 AM [facility] RBC 4.98 3.93 - 5.22 M/ L 10/07/2025 8:53 AM [facility] Hemoglobin 14.1 11.2 - 15.7 GM/DL 10/07/2025 8:53 AM [facility] Hematocrit 44.3 34.1 - 44.9 % 10/07/2025 8:53 AM [facility] MCV 89 79 - 95 fL 10/07/2025 8:53 AM [facility] MCH 28.3 25.6 - 32.2 pg 10/07/2025 8:53 AM [facility] MCHC 31.8(L) 32.2 - 35.5 GM/DL 10/07/2025 8:53 AM [facility] RDW 17.1(H) 11.7 - 14.4 % 10/07/2025 8:53 AM [facility] Platelets 538(H) 140 - 375 K/CU MM 10/07/2025 8:53 AM [facility] MPV 9.8 9.4 - 12.3 fL 10/07/2025 8:53 AM [facility] % Neutros 63 34 - 71 % 10/07/2025 8:53 AM [facility] % Lymphs 24 19 - 52 % 10/07/2025 8:53 AM [facility] % Monos 11 5 - 13 % 10/07/2025 8:53 AM [facility] % Eos 0.8(L) 1.0 - 6.0 % 10/07/2025 8:53 AM [facility] % Baso 1 0 - 1 % 10/07/2025 8:53 AM [facility] NRBC Absolute <0.01 0 - 0.012 K/ul 10/07/2025 8:53 AM [facility] # Neutros 9.10(H) 1.56 - 6.13 K/ L 10/07/2025 8:53 AM [facility] # Lymphs 3.41 1.18 - 3.74 K/ L 10/07/2025 8:53 AM [facility] # Monos 1.62(H) 0.24 - 0.86 K/ L 10/07/2025 8:53 AM [facility] # Eos 0.12 0.04 - 0.36 K/ L 10/07/2025 8:53 AM [facility] # Baso 0.10(H) 0.01 - 0.08 K/ L 10/07/2025 8:53 AM [facility] % Imm Grans 0.30 0.01 - 0.43 % 10/07/2025 8:53 AM [facility] # IG 0.04(H) 0.00 - 0.03 K/uL 10/07/2025 8:53 AM [facility] Blood Venipuncture / Unknown 10/07/2025 8:23 AM EST 10/07/2025 8:48 AM [facility] - 10/07/2025 8:53 AM EST When [...] Blast? Flag noted Atypical Lymph flag noted Result [facility] Pan Grant MD LAB BLOOD ORDERABLES Final Re sult Performing Organization Address [facility]/ZIP Co de Phone Number [facility] [address] [phone] * Procalcitonin (10/07/2025 8:23 AM EST) Procalcitonin 0.03 See Comment ng/mL 10/07/2025 10:07 AM EST [facility] Comment: Sepsis comment <0.5 Antibiotics [...] 8:23 AM EST 10/07/2025 8:48 AM EST Result [facility] Pan Grant MD LAB BLOOD ORDERABLES Final Re sult Performing Organization Address City/[facility]/ZIP Co de Phone Number [facility] [address] [phone] * (ABNORMAL) C-Reactive Protein (10/07/2025 8:23 AM EST) CRP 9.5(H) 0.0 - 5.0 mg/L 10/07/2025 10:07 AM EST [facility] Blood Venipuncture / Unknown 10/07/2025 8:23 AM EST 10/07/2025 8:48 AM EST Result [facility] Pan Grant MD LAB BLOOD ORDERABLES Final Re sult [facility] [address] [phone] * aPTT (10/07/2025 8:23 AM EST) aPTT 29.9 22.0 - 32.0 seconds 10/07/2025 9:03 AM EST [facility] Blood Venipuncture / Unknown 10/07/2025 8:23 AM EST 10/07/2025 8:48 AM EST Pan Grant MD LAB BLOOD ORDERABLES Final Re sult Performing Organization Address [facility] Co de Phone Number [facility] [address] [phone] * Prothrombin time/INR (10/07/2025 8:23 AM EST) Protime 10.7 9.0 - 12.0 seconds 10/07/2025 9:03 AM EST [facility] INR 0.96 0.80 - 1.10 10/07/2025 9:03 AM EST [facility] Comment: Recommended therapeutic ranges using [...] ORDERABLES Final Re sult Performing Organization Address City/[facility]/ZIP Co de Phone Number [facility] [address] [phone] from Last 3 Months Insurance BLUE CROSS/BLUE SHIELD Advance Directives For more information, please contact: [phone] * Full Code (Latest Code Status on File) Date Activated Date Inactivated Comments 10/07/2025 6:57 AM 10/08/2025 6:29 PM
--- OUTSIDE RECORDS SUMMARY | 2025-11-24 07:36 | XMS_ITS | Clinical Summary ---
Author Organization [facility] Address [address] [place] [id number] Care Team Providers Care Burlesque Dancer Name Role Phone Gen, Non Staff Referal [...] therelease of HIV test results or diagnoses. [id number] Allergies No known active allergies Social [...] on file Insurance BLUE ACCESS Care Teams Burlesque Dancer Relationship Specialty Start Date End Date Gen, Non Staff Referal Provider [address] [place] [id number] PCP - General 08/04/13
--- OUTSIDE RECORDS SUMMARY | 2025-11-24 07:36 | XMS_ITS | Patient Health Record ---
[facility] Address [address] [place] [id number] Care Team Providers Care Teletypewriter Installer Name Role Phone Jackelin Joyner Primary Care Provider Godwin Hdez Unavailable [phone] Herminia Marin Unavailable [phone] Lizy Swanson Unavailable [phone] Allergies No Known Allergies Results Component Value [...] Normal Performing Lab: Notes/Report: Test performed by [facility], [facility] [address] [place] [address] , [address], [place] [address] Jc Salmon MD, Business Information Manager CLIA: [id number] Sodium 138 135-145 mmol/L Potassium 4.9 3.5-5.3 [...] 0.2 <0.2-1.2 mg/dL A/G Ratio 1.3 1.1-2.5 P-Lipid Panel Reviewed date:04/20/2025 03:04:49 PM Interpretation:chol 210, trigs 154, non-hdl 159 Performing Lab: Notes/Report: Test performed by [facility], [address] , [address], [place] [address] Jc Salmon MD, Business Information Manager CLIA: [id number] Cholesterol 210 <200 mg/dL Triglycerides 154 <150 [...] Normal Performing Lab: Notes/Report: Test performed by [facility] [address] , [address], [place] [address] Jc Salmon MD, Business Information Manager CLIA: [id number] TSH reflex to FT4 1.52 0.43-5.25 mU/L Mammogram Reviewed date:04/21/2025 12:57:31 PM Interpretation:Negative Performing Lab: Notes/Report: Negative P-Iron Reviewed date:04/20/2025 03:04:49 PM Interpretation: Normal Performing Lab: Notes/Report: Test performed by [facility] [address] , [address], [place] [address] Jc Salmon MD, Business Information Manager CLIA: [id number] Iron 79 37-145 ug/dL P-Ferritin Reviewed date:04/20/2025 03:04:49 PM Interpretation: Normal Performing Lab: Notes/Report: Test performed by [facility] [address] , [address], [place] [address] Jc Salmon MD, Business Information Manager CLIA: [id number] Ferritin 24.6 13.0-301.0 ng/mL Medications Medication SIG (Take, Route, Frequency, Duration) [...] Risk Notes Problem Streptococcal sore throat (disorder) (62435440) Strep pharyngitis (J02.0) Active confirmed Problem Menorrhagia (265849309) Menorrhagia (N92.0) Active confirmed Problem Abnormal mammogram (391687196) Abnormal mammogram (R92.8) Active confirmed Problem Generalized abdominal pain (062195868) Generalized abdominal pain (R10.84) Active confirmed Problem Mixed anxiety and depressive disorder (334584726) Anxiety and depression (F41.8) Active confirmed Problem Iron deficiency anemia (22266894) Iron deficiency anemia (D50.9) Active confirmed Problem Obese class I (277947682588915) BMI 33.0-33.9,adult (Z68.33) Active confirmed Problem Acute cystitis (27871657) Acute cystitis with hematuria (N30.01) Active confirmed Problem Gastroesophageal reflux disease (338284627) GERD without esophagitis (K21.9) Active confirmed Problem Obese class II (918471926058570) BMI 35.0-35.9,adult (Z68.35) Active confirmed Problem Gastroesophageal reflux disease (502517792) Gastroesophageal reflux disease, esophagitis presence not specified (K21.9) Active confirmed Problem Allergic rhinitis (50662223) Allergic rhinitis (J30.9) Active confirmed Problem Body mass index 40+ - morbidly obese (556171776) BMI 40.0-44.9, adult (Z68.41) Active confirmed Problem Microcytic anemia (047055863) Microcytic anemia (D50.9) Active confirmed Problem Body mass index 30.00 to 34.99 (391364831975523) BMI 34.0-34.9,adult (Z68.34) Active confirmed Problem Dyslipidemia (091130253) Dyslipidemia (E78.5) Active confirmed Problem Pulmonary embolism (13129909) Pulmonary embolism (I26.99) Active confirmed Problem Seasonal allergic rhinitis (010069579) Seasonal allergic rhinitis, unspecified trigger (J30.2) Active confirmed Problem Allergic rhinitis (05504009) Non-seasonal allergic rhinitis, unspecified trigger (J30.89) Active confirmed Problem Allergic rhinitis (90536922) Allergic rhinitis, unspecified seasonality, unspecified trigger (J30.9) Active confirmed Vital Signs Heart Rate 88 /min 04/08/2025 Blood pressure diastolic 84 mm Hg 04/08/2025 Height 64.50 in 04/08/2025 Blood pressure systolic 126 mm Hg 04/08/2025 Weight 215.8 lbs 04/08/2025 BMI 36.47 kg/m2 04/08/2025 Encounters Encounter Location Date Provider Diagnosis [facility] [address] [place], [place] [id number] 04/08/2025 Lizy Swanson Anxiety and depressi on F41.8 ; Pulmonary embolism I26.99 ; Microcytic anemia D50.9 ; Seasonal allergic rhinitis, unspecified trigger J30.2 ; Dyslipidemia E78.5 ; Iron deficiency anemia D50.9 ; GERD without esophagitis K21.9 ; Acute URI J06.9 and Screening mammogram, encounter for Z12.31 [facility] [address] [place], [place] [id number] 04/05/2025 Jackelin Joyner [facility] [address] [place] [id number] 04/08/2025 Lizy Swanson [facility] [address] [place] [address] [place] [id number] 04/20/2025 Lizy Swanson Assessments Encounter Date Diagnosis (ICD Code) Assessment Notes Treatment Notes Treatment Clinical Notes Section Notes 04/08/2025 Pulmonary embolism (ICD-10 - I26.99) 04/08/2025 Anxiety and depression (ICD-10 - F41.8) 04/08/2025 Microcytic anemia (ICD-10 - D50.9) 04/08/2025 [...] Insured Coverage Start Date Coverage End Date [employer] [address] [place] [address] [id number] Kimani Ramsey Self - patient is the insured Medications Administered Medication Instructions Date of Administration Dosage Notes Depo- Medrol 40 mg/ml 06/10/2012 Dexamethasone 11/10/2009 1 mL Medical (General) History Medical History History ICD Code Allergues Urinary Incontinence Anemia Allergic Rhinitis Anxiety Esophageal Reflux Pulmonary embolus Cologuard - negative 04/2024 Surgical History Surgery Date(Month/Year) Complete Hysterectomy 10/09/2023 Hospitalization History Reason Date(Month/Year) 05/17/23- [facility] ER - Anxiety 05/17/2023
--- OUTSIDE RECORDS SUMMARY | 2025-11-24 07:36 | XMS_ITS | Encounter Summary ---
Author Organization Healthcare Address [address] [place] [address] Care Team Providers Care Maintenance Truck Driver Name Role Phone David Joyner MD Primary Care Provider [phone] Encounter Details Date Type Department Care Team (Late st Contact Info) Description 05/20/2023 Lab Requisition [facility] [address] [place] [address] Maninder Martinez MD [address] [place] [address] Encounter for general adult medical examination without [...] drink first t devaughn in the morning (EYE-DIE MAKER STAMPING) to steady your nerves or to get rid of a hangover? 0 05/18/2023 CAGE Questionnaire Score 0 023 Comments Unknown Sex and Gender Information Value Date Recorded Sex Assigned at Female 05/17/2023 6:01 PM EDT Legal Sex Female 6:01 PM EDT Gender Identity Female 05/17/2023 6:01 PM EDT Sexual Orientation Not on file documented as of this encounter Plan of [...] tant Staphylococcus aureus(AA) 05/22/2023 9:19 AM EDT [facility] Comment:Previously isolated, still present in culture. Swab (Nares and Devora Rectal) 05/20/2023 10:30 AM EDT 05/20/2023 11:20 AM EDT Maninder Gutierrez MD LAB MICROBIOLOGY - GENERAL ORDERABLES Final Result [facility] [address] [place] [address] documented in this encounter Visit Diagnoses Diagnosis Encounter for general adult medical examination without abnormal findings documented in this encounter Additional Health Concerns Infection Onset Date Last Indicated Resolved Time MRSA 05/18/2023 05/20/2023 documented as of this encounter Care Teams Maintenance Truck Driver Relationship Specialty Start Date End Date David Joyner MD [facility] [address] PCP - General 05/17/23 documented as of this encounter
--- OUTSIDE RECORDS SUMMARY | 2025-11-24 07:36 | XMS_ITS | Referral Summary ---
Author Organization [facility] ([place], [place], [place], [place], [place]) Address [address] [place] [address] Care Team Providers Care Director External Communications Name Role Phone Unavailable Primary Care Provider Unavailabl e Encounters Date Type Department Care Team Description 10/07/2025 5:52 AM EST - 10/08/2025 5:00 PM EST Hospital Encounter [facility] [address] [place] [address] Asif Child MD Elsallabi, Osama, MD Brammell, Korey, Discharge Disposition: Home or Self Care from Last 3 Months Allergies Active Allergy Reactions Criticality Noted Date [...] Noted Date Diagnosed Date Obstructive uropathy 10/07/2025 Social History Tobacco Use Types Packs/Day Years [...] Never 10/07/2025 How often does anyone, dariusz sabra family and friends, threaten you with harm? [...] Do you speak a language other than [place] [facility]? No 10/07/2025 Do you want help [...] 10/07/2025 6:07 AM EST Plan of Treatment Not on file Procedures Procedure Name Priority Date/Time Associated Diagnosis [...] - 145 meq/L 10/08/2025 9:25 AM EST [facility] Potassium 3.7 3.4 - 5.1 meq/L 10/08/2025 9:25 AM [facility] Chloride 112 98 - 112 meq/L 10/08/2025 9:25 AM [facility] CO2 19(L) 22 - 29 meq/L 10/08/2025 9:25 AM [facility] Calcium 8.6 8.4 - 10.2 mg/dL 10/08/2025 9:25 AM [facility] Glucose 140(H) 74 - 100 mg/dL 10/08/2025 9:25 AM [facility] BUN 10.0 9.8 - 20.1 mg/dL 10/08/2025 9:25 AM [facility] Creatinine 0.59 0.50 - 1.10 mg/dL 10/08/2025 9:25 AM [facility] BUN/Creatinine 17 8 - 20 10/08/2025 9:25 AM [facility] eGFR (mL/min/1.73m2) 107 >=60 mL/min/1.7 3m2 10/08/2025 9:25 AM [facility] Comment:ESTIMATED GFR IS NOT ACCURATE CREATININE CLEARANCE IN PREDICTING GLOMERULAR FILTRATION RATE. ESTIMATED GFR IS NOT APPLICABLE FOR DIALYSIS PATIENTS. Albumin 3.1(L) 3.5 - 5.0 g/dL 10/08/2025 9:25 AM [facility] Alkaline Phosphatase 164(H) 40 - 150 U/L 10/08/2025 9:25 AM [facility] ALT 350(H) <55 U/L 10/08/2025 9:25 AM [facility] AST 226(H) 5 - 34 U/L 10/08/2025 9:25 AM [facility] Total Bilirubin 0.3 0.3 - 1.2 mg/dL 10/08/2025 9:25 AM [facility] Protein, Total 6.3(L) 6.4 - 8.3 g/dL 10/08/2025 9:25 AM [facility] Globulin 3.2 2.5 - 4.1 g/dL 10/08/2025 9:25 AM [facility] Anion Gap 12 4 - 12 10/08/2025 9:25 AM [facility] A/G Ratio 1.0 0.7 - 1.9 10/08/2025 9:25 AM EST [facility] Osmolality Calc 278.9 mOsm/kg 9:25 AM EST [facility] Blood Venipuncture / Unknown 10/08/2025 8:57 AM EST 10/08/2025 9:01 AM EST us Pan Grant MD LAB BLOOD ORDERABLES Final Re sult [facility] [address] [phone] * CT ABDOMEN/PELVIS WITHOUT IV CONTRAST Standard [...] Images reviewed, interpreted, and dictated by Dr. gR Marquez. Transcribed by Bernardo Dee. Sampson Renteria MD [facility] [place] ORDERABLES Final Result * (ABNORMAL) CBC with automated diff (10/07/2025 8:23 AM EST) WBC 14.4(H) 4.0 - 10.0 K/ L 10/07/2025 8:53 AM [facility] RBC 4.98 3.93 - 5.22 M/ L 10/07/2025 8:53 AM [facility] Hemoglobin 14.1 11.2 - 15.7 GM/DL 10/07/2025 8:53 AM [facility] Hematocrit 44.3 34.1 - 44.9 % 10/07/2025 8:53 AM [facility] MCV 89 79 - 95 fL 10/07/2025 8:53 AM [facility] MCH 28.3 25.6 - 32.2 pg 10/07/2025 8:53 AM [facility] MCHC 31.8(L) 32.2 - 35.5 GM/DL 10/07/2025 8:53 AM [facility] RDW 17.1(H) 11.7 - 14.4 % 10/07/2025 8:53 AM [facility] Platelets 538(H) 140 - 375 K/CU MM 10/07/2025 8:53 AM [facility] MPV 9.8 9.4 - 12.3 fL 10/07/2025 8:53 AM [facility] % Neutros 63 34 - 71 % 10/07/2025 8:53 AM [facility] % Lymphs 24 19 - 52 % 10/07/2025 8:53 AM [facility] % Monos 11 5 - 13 % 10/07/2025 8:53 AM [facility] % Eos 0.8(L) 1.0 - 6.0 % 10/07/2025 8:53 AM [facility] % Baso 1 0 - 1 % 10/07/2025 8:53 AM [facility] NRBC Absolute <0.01 0 - 0.012 K/ul 10/07/2025 8:53 AM [facility] # Neutros 9.10(H) 1.56 - 6.13 K/ L 10/07/2025 8:53 AM [facility] # Lymphs 3.41 1.18 - 3.74 K/ L 10/07/2025 8:53 AM EST [facility] # Monos 1.62(H) 0.24 - 0.86 K/ L 10/07/2025 8:53 AM EST [facility] # Eos 0.12 0.04 - 0.36 K/ L 10/07/2025 8:53 AM EST [facility] # Baso 0.10(H) 0.01 - 0.08 K/ L 10/07/2025 8:53 AM EST [facility] % Imm Grans 0.30 0.01 - 0.43 % 10/07/2025 8:53 AM EST [facility] # IG 0.04(H) 0.00 - 0.03 K/uL 10/07/2025 8:53 AM EST [facility] Blood Venipuncture / Unknown 10/07/2025 8:23 AM EST 10/07/2025 8:48 AM EST Narrative [facility] - 10/07/2025 8:53 AM EST When [...] MD LAB BLOOD ORDERABLES Final Re sult [facility] [address] [place] [address] * Procalcitonin (10/07/2025 8:23 AM EST) Procalcitonin 0.03 See Comment ng/mL 10/07/2025 10:07 AM EST [facility] Comment: Sepsis comment <0.5 Antibiotics Discouraged [...] ORDERABLES Final Re sult Performing Organization Address City/[facility] Co de Phone Number [facility] [address] [phone] * (ABNORMAL) C-Reactive Protein (10/07/2025 8:23 AM EST) CRP 9.5(H) 0.0 - 5.0 mg/L 10/07/2025 10:07 AM EST [facility] Blood Venipuncture / Unknown 10/07/2025 8:23 AM EST 10/07/2025 8:48 AM EST Pan Grant MD LAB BLOOD ORDERABLES Final Re sult Performing Organization Address [facility] Co de Phone Number [facility] [address] [phone] * aPTT (10/07/2025 8:23 AM EST) aPTT 29.9 22.0 - 32.0 seconds 10/07/2025 9:03 AM EST [facility] Blood Venipuncture / Unknown 10/07/2025 8:23 AM EST 10/07/2025 8:48 AM EST Pan Grant MD LAB BLOOD ORDERABLES Final Re sult Performing Organization Address [facility] Co de Phone Number [facility] [address] [phone] * Prothrombin time/INR (10/07/2025 8:23 AM EST) Protime 10.7 9.0 - 12.0 seconds 10/07/2025 9:03 AM EST [facility] INR 0.96 0.80 - 1.10 10/07/2025 9:03 AM EST [facility] Comment: Recommended therapeutic ranges using International [...] MD LAB BLOOD ORDERABLES Final Re sult [facility] [address] [phone] from Last 3 Months Insurance * Guarantor: Kimani Hernandez Account Type Relation to Patient Date of Phone Billing Address Personal/Family Self [address] [place] [address] [employer] Advance Directives For more information, please contact: [phone] * Full Code (Latest Code Status on File) Date Activated Date Inactivated Comments 10/07/2025 6:57 AM 10/08/2025 6:29 PM
--- OUTSIDE RECORDS SUMMARY | 2025-11-24 07:37 | XMS_ITS | Clinical Summary ---
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 or to get [...] of 2) 2020 [facility]-Depression Screening 07/17/2024 07/17/2023 [id number] Vaccine (3 - 2024- season) 2025 10/20/2021, 09/21/2021 [facility]-Influenza Vaccine (#1) 2025 10/04/2023 [facility]-HIV Screening Completed 05/18/2023 [facility]-Hepatitis C Screening Completed 05/18/2023 HPV Vaccines (No Doses Required) Completed [facility]-HIB Vaccines Aged Out No longer e [...] 3:56 AM EDT 05/18/2023 4:04 AM EDT JarenRadhaDenisenoreen Izquierdo APRN LAB BLOOD ORDERABLES Final Result Performing Organization Address City/[facility]/ZIP Co de Phone Number [facility] [address] [place] [address] * Hepatitis C Antibody - ED (05/18/2023 3:56 AM EDT) Hepatitis C Antibody Negative Negative 05/18/2023 4:55 AM EDT [facility] Blood Venous blood specimen / Unknown Venipuncture / Unknown 05/18/2023 3:56 AM EDT 05/18/2023 4:04 AM EDT [facility] ASSOCIATE DIRECTOR DATA & ANALYTICS LAB BLOOD ORDERABLES Final Result Performing Organization Address City/[facility]/ZIP Co de Phone Number [facility] [address] [place] [address] from Last 3 Months or Most Recently Relevant to Health Maintenance Additional Health Concerns Infection Onset Date 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 Yes Care Teams Manager Technical Sales Relationship Specialty Start Date End Date David Joyner MD [facility] [address] PCP - General 05/17/23
== END 2025-11-23 23:59 | disposition home or self-care (01) ==
LOC: LAB.DROPOF 11-24 07:33
PROVIDERS: PCP Physician Assistant; Visit Provider Nurse Practitioner
DX: N39.0 Urinary tract infection, site not specified (principal)
CPT/HCPCS: 87086